=== PATIENT | male | born 1955 | race Caucasian/White ===

== ENCOUNTER 2017-04-08 11:21 | Emergency (ER) | payer OTHER ==
[~2017-04-08] VITALS: Ht 175.3 cm; Wt 105.0 kg
[2017-04-08 11:36] VITALS: TEMP 36.7; Ht 175.3 cm; Wt 105.0 kg
[2017-04-08 12:30] LABS: BASO % 0.3 %; BASO ABS # 0.03 K/uL (0-0.2); COMPLETE YES; EOS % 1.5 %; HEMATOCRIT 46.7 % (42-52); IG% 0.4 %; LYMPH % 20.3 %; LYMPH ABS # 2.26 K/uL (1.2-3.4); MEAN CELL VOLUME 83.7 fL (80-100); MEAN CORPUSCULAR HEMOGLOBIN 29.2 pg (25-34); MEAN CORPUSCULAR HGB CONC 34.9 g/dl (32-36); MEAN PLATELET VOLUME 9.5 fL (7.4-10.4); MONO % 8.6 %; NEUT % 68.9 %; PLATELET COUNT 320 K/uL (130-400); RED BLOOD COUNT 5.58 M/uL (4.7-6.1); WHITE BLOOD COUNT 11.14 K/uL (4.8-10.8)
[2017-04-08] MEDS ORDERED: SODIUM CHLORIDE 0.9% 1000ML 1,000 ML IV STA (12:41)
[2017-04-08 12:48] LABS: URINE APPEARANCE CLEAR (CLEAR); URINE BILIRUBIN NEG (NEG); URINE COLOR YELLOW; URINE EPITHELIAL CELL AUTO 0-5 /lpf (0-5); URINE NITRITE NEG (NEG); URINE PH 5.5 (4.5-7.5); URINE SPECIFIC GRAVITY 1.015 (1.000-1.030); UROBILINOGEN NEG (NEG); ZZUR CULT IF INDIC CLEAN CATCH NO
[2017-04-08 12:48] LABS: BUN/CREATININE RATIO 8.8 (10-20); CALCIUM 9.5 mg/dl (8.5-10.1); POTASSIUM 3.8 mmol/L (3.5-5.1)
[2017-04-08 12:49] LABS: MANUAL MICROSCOPIC REQUIRED? NO; REVIEW REQ? NO
[2017-04-08 12:59] LABS: THYROID STIMULATING HORMONE 2.07 uIu/ml (0.300-4.500)
[2017-04-08 13:14] LABS: ACETAMINOPHEN < 2 ug/ml (10-30)
[2017-04-08 13:29] LABS: BENZODIAZEPINE, URINE NEG (NEG); COCAINE,URINE NEG (NEG); PHENCYCLIDINE, URINE NEG (NEG)
[2017-04-08] MEDS ORDERED: SIMV20TA2 PO (13:40)
[2017-04-08] MEDS ORDERED: ABL/5 PO (13:40)
[2017-04-08] MEDS ORDERED: ARIP20TA4 PO (13:40)
[2017-04-08] MEDS ORDERED: ASPI-232 PO (13:40)
[2017-04-08] MEDS ORDERED: GLC/500 PO (13:40)
[2017-04-08] MEDS ORDERED: WARF-246 PO (13:40)
[2017-04-08] MEDS ORDERED: DILT240C74 PO (13:40)
[2017-04-08] MEDS ORDERED: RMRS/15 PO (13:40)
[2017-04-08] MEDS ORDERED: PANT40TA PO (13:40)
--- NOTE | 2017-04-08 13:46 | DIAGNOSTIC IMAGING REPORT ---
CHEST ONE VIEW PORTABLE CLINICAL HISTORY: Altered mental status. Weakness. COMPARISON STUDY: No previous studies for comparison. FINDINGS: Lung volumes are at the lower limits of normal. There is mild elevation of the right hemidiaphragm. No pneumothorax or pleural effusion is present. There is no evidence of pulmonary edema. There is mild enlargement of the cardiac silhouette. IMPRESSION: 1. No acute cardiopulmonary findings. 2. Mild cardiomegaly. Electronically signed by: Mainor Black M.D. 04/08/2017 1:44 PM Dictated Date/Time: 04/08/2017 1:43 PM
--- NOTE | 2017-04-08 13:56 | DIAGNOSTIC IMAGING REPORT ---
HEAD WITHOUT CONTRAST (CT) CLINICAL HISTORY: 61 years-old Male presenting with EVALUATE ALTERED MENTAL STATUS/WEAKNESS, suicidal thoughts. TECHNIQUE: Multidetector CT imaging of the head was performed without the use of intravenous contrast. COMPARISON: None. CT DOSE: 669.45 mGycm FINDINGS: Peripheral hypoattenuation in the medial left cerebellar hemisphere may represent encephalomalacia from prior infarct or possibly an arachnoid cyst. No mass effect or midline shift. No acute territorial infarct. No hydrocephalus. Mild asymmetric prominence of the superior sagittal sinus along the right paramedian parietal region. As this appearance remains focal at the sinus and does not extend along the dura, the presence of a subdural hematoma is felt to be unlikely. Paranasal sinuses and mastoid air cells clear. Calvarium intact. IMPRESSION: 1. No convincing evidence of acute intracranial pathology. 2. Possible encephalomalacia from prior infarct in the left cerebellar hemisphere versus arachnoid cyst. Electronically signed by: Brian Mora M.D. 04/08/2017 1:54 PM Dictated Date/Time: 04/08/2017 1:34 PM
--- NOTE | 2017-04-08 14:44 | EMERGENCY ROOM VISIT NOTE ---
History Report prepared by Rahul: Keara Mix Under the Supervision of: Dr. Talha Zavala D.O. First contact with patient: 12:34 Chief Complaint: MENTAL HEALTH EVALUATION Stated Complaint: SUICIDAL THOUGHTS History of Present Illness The patient is a 61 year old male who presents to the Emergency Room for concerns about stroke-like symptoms occurring today. The patient's nurse from [facility] came to check in on the patient and found him to have a right facial droop, speech slur, and confusion. The patient was also drooling. He states that he started drooling constantly a few weeks ago. The patient reports pain in the back of his head starting about a week ago which is similar to his chronic hypertension headache. He also complains of sore throat starting about a week ago which is new. The patient also reports fevers occurring at home. He has been ambulating as normal in his home. He reports a normal appetite and a normal fluid intake. As per Emergency Room psychiatric child support case officer, the patient has been making homicidal threats against some people concerning his 's . The patient was initially hospitalized for a psych evaluated for 30 days during which time his 's health worsened. He was hospitalized for 30 days again for a mental health evaluation. In these 60 days time period, the patient's . By the time he was discharged from the hospital, his had been cremated and he did not get to attend her . He currently reports feeling depressed. Source of History: patient, other Onset: today Position: other (global) Quality: other (stroke-like symptoms) Associated Symptoms: + fevers, + headache, + sorethroat Note: Associated symptoms; He currently reports feeling depressed. He also has homicidal ideation. Review of Systems See HPI for pertinent positives & negatives. A total of 10 systems reviewed and were otherwise negative. Past Medical & Surgical Medical Problems: (1) Anginal pain (2) Asthma (3) Chest pain (4) Diabetes Family History Patient reports no known family medical history. Social History Marital Status: Occupation Status: disabled Current/Historical Medications Scheduled Aripiprazole (Abilify), 5 MG PO HS Aripiprazole (Abilify), 20 MG PO HS Aspirin (Aspir-81), 1 TAB PO DAILY Diltiazem Hcl Extended Release (Diltiazem Hcl Er), 1 CAP PO DAILY Metformin Hcl (Glucophage), 500 MG PO BIDM Mirtazapine (Mirtazapine), 7.5 MG PO HS Pantoprazole Sodium (Protonix), 40 MG PO DAILY Simvastatin (Zocor), 20 MG PO QPM Warfarin Sodium (Warfarin Sodium), 1.5 TAB PO DAILY Allergies Coded Allergies: BEE STING (Unverified Allergy, Unknown, unknown, 04/08/17) Physical Exam Vital Signs Date Time Temp Pulse Resp B/P (MAP) Pulse Ox O2 Delivery O2 Flow Rate FiO2 04/08/17 14:51 84 20 160/106 94 Room Air 04/08/17 13:30 84 20 148/111 93 Room Air 04/08/17 11:36 36.7 98 20 152/108 93 Room Air Physical Exam VITAL SIGNS: were reviewed as above. GENERAL:Non-toxic in appearance. SKIN: Warm dry and pink. HEAD: Normocephalic and atraumatic. OROPHARYNX: Is clear and moist NECK: Supple without lymphadenopathy or meningismus. LUNGS: clear. HEART: Regular rate and rhythm. ABDOMEN: Soft and nontender. EXTREMITIES: Warm and well perfused. NEUROLOGICALLY: Awake alert and oriented without focal deficit. Cranial nerves 2 -12 are intact. There is no pronator drift. Cerebellar testing is within normal limits. There is no nystagmus. There is no facial droop. Speech is clear. Vision is grossly normal. MUSCULOSKELETAL: Good muscle tone. No evidence of trauma. Medical Decision & Procedures ER Provider Diagnostic Interpretation: X ray results and stated below per my interpretation and radiology interpretation. CHEST ONE VIEW PORTABLE CLINICAL HISTORY: Altered mental status. Weakness. COMPARISON STUDY: No previous studies for comparison. FINDINGS: Lung volumes are at the lower limits of normal. There is mild elevation of the right hemidiaphragm. No pneumothorax or pleural effusion is present. There is no evidence of pulmonary edema. There is mild enlargement of the cardiac silhouette. IMPRESSION: 1. No acute cardiopulmonary findings. 2. Mild cardiomegaly. Electronically signed by: Mainor Black M.D. 04/08/2017 1:44 PM Dictated Date/Time: 04/08/2017 1:[address] results as stated below per my review and radiologist interpretation: HEAD WITHOUT CONTRAST (CT) CLINICAL HISTORY: 61 years-old Male presenting with EVALUATE ALTERED MENTAL STATUS/WEAKNESS, suicidal thoughts. TECHNIQUE: Multidetector CT imaging of the head was performed without the use of intravenous contrast. COMPARISON: None. CT DOSE: 669.45 mGycm FINDINGS: Peripheral hypoattenuation in the medial left cerebellar hemisphere may represent encephalomalacia from prior infarct or possibly an arachnoid cyst. No mass effect or midline shift. No acute territorial infarct. No hydrocephalus. Mild asymmetric prominence of the superior sagittal sinus along the right paramedian parietal region. As this appearance remains focal at the sinus and does not extend along the dura, the presence of a subdural hematoma is felt to be unlikely. Paranasal sinuses and mastoid air cells clear. Calvarium intact. IMPRESSION: 1. No convincing evidence of acute intracranial pathology. 2. Possible encephalomalacia from prior infarct in the left cerebellar hemisphere versus arachnoid cyst. Electronically signed by: Brian Mora M.D. 04/08/2017 1:54 PM Dictated Date/Time: 04/08/2017 1:34 PM Laboratory Results 04/08/17 11:55 Red Blood Count 5.58, Mean Corpuscular Volume 83.7, Mean Corpuscular Hemoglobin 29.2, Mean Corpuscular Hemoglobin Concent 34.9, Mean Platelet Volume 9.5, Neutrophils (%) (Auto) 68.9, Lymphocytes (%) (Auto) 20.3, Monocytes (%) (Auto) 8.6, Eosinophils (%) (Auto) 1.5, Basophils (%) (Auto) 0.3, Neutrophils # (Auto) 7.68, Lymphocytes # (Auto) 2.26, Monocytes # (Auto) 0.96, Eosinophils # (Auto) 0.17, Basophils # (Auto) 0.03 04/08/17 11:55 Test 04/08/17 11:50 04/08/17 11:55 Urine Color YELLOW Urine Appearance CLEAR (CLEAR) Urine pH 5.5 (4.5-7.5) Urine Specific [place] 1.015 (1.000-1.030) Urine Protein 2+ (NEG) Urine Glucose (UA) NEG (NEG) Urine Ketones NEG (NEG) Urine Occult Blood 1+ (NEG) Urine Nitrite NEG (NEG) Urine Bilirubin NEG (NEG) Urine Urobilinogen NEG (NEG) Urine Leukocyte Esterase NEG (NEG) Urine WBC (Auto) 0 /hpf (0-5) Urine RBC (Auto) 0-4 /hpf (0-4) Urine Hyaline Casts (Auto) 1-5 /lpf (0-5) Urine Epithelial Cells (Auto) 0-5 /lpf (0-5) Urine Bacteria (Auto) NEG (NEG) Urine Opiates Screen NEG (NEG) Urine Methadone, Qualitative NEG (NEG) Urine Barbiturates NEG (NEG) Urine Phencyclidine (PCP) Level NEG (NEG) Ur Amphetamine/Methamphetamine NEG (NEG) MDMA (Ecstasy) Screen NEG (NEG) Urine Benzodiazepines Screen NEG (NEG) Urine Cocaine Metabolite NEG (NEG) Urine Marijuana (THC) NEG (NEG) White Blood Count 11.14 K/uL (4.8-10.8) Red Blood Count 5.58 M/uL (4.7-6.1) Hemoglobin 16.3 g/dL (14.0-18.0) Hematocrit 46.7 % (42-52) Mean Corpuscular Volume 83.7 fL (80-100) Mean Corpuscular Hemoglobin 29.2 pg (25-34) Mean Corpuscular Hemoglobin Concent 34.9 g/dl (32-36) Platelet Count 320 K/uL (130-400) Mean Platelet Volume 9.5 fL (7.4-10.4) Neutrophils (%) (Auto) 68.9 % Lymphocytes (%) (Auto) 20.3 % Monocytes (%) (Auto) 8.6 % Eosinophils (%) (Auto) 1.5 % Basophils (%) (Auto) 0.3 % Neutrophils # (Auto) 7.68 K/uL (1.4-6.5) Lymphocytes # (Auto) 2.26 K/uL (1.2-3.4) Monocytes # (Auto) 0.96 K/uL (0.11-0.59) Eosinophils # (Auto) 0.17 K/uL (0-0.5) Basophils # (Auto) 0.03 K/uL (0-0.2) RDW Standard Deviation 43.4 fL (36.4-46.3) RDW Coefficient of Variation 14.1 % (11.5-14.5) Immature Granulocyte % (Auto) 0.4 % Immature Granulocyte # (Auto) 0.04 K/uL (0.00-0.02) Anion Gap 9.0 mmol/L (3-11) Est Creatinine Clear Calc Drug Dose 95.0 ml/min Estimated GFR () 95.1 Estimated GFR (Non- 82.0 BUN/Creatinine Ratio 8.8 (10-20) Calcium Level 9.5 mg/dl (8.5-10.1) Total Bilirubin 0.6 mg/dl (0.2-1) Aspartate Amino Transf (AST/SGOT) 56 U/L (15-37) Alanine Aminotransferase (ALT/SGPT) 64 U/L (12-78) Alkaline Phosphatase 77 U/L (45-117) Total Protein 7.7 gm/dl (6.4-8.2) Albumin 3.9 gm/dl (3.4-5.0) Globulin 3.8 gm/dl (2.5-4.0) Albumin/Globulin Ratio 1.0 (0.9-2) Thyroid Stimulating Hormone (TSH) 2.070 uIu/ml (0.300-4.500) Salicylates Level < 1.7 mg/dl (2.8-20) Acetaminophen Level < 2 ug/ml (10-30) Ethyl Alcohol mg/dL < 3.0 mg/dl (0-3) Laboratory results as stated above per my review. Medications Administered Medications (Trade) Dose Ordered Sig/Prashant Route Start Time Stop Time Status Last Admin Dose Admin Sodium Chloride 1,000 ml @ 999 mls/hr Q1H1M STAT IV 04/08/17 12:41 04/08/17 13:41 DC 04/08/17 12:59 999 MLS/HR ECG Indication: other (Stroke-like symptoms) Rate (beats per minute): 80 Rhythm: normal sinus Findings: no acute ischemic change, no ectopy ED Course 1234: Previous medical records were reviewed. The patient was evaluated in room A05. A complete history and physical examination was performed. 1241: Sodium Chloride 1000 ml @ 999 mls/hr IV 1445: On reevaluation, the patient is resting comfortably. I discussed the results and findings with the patient. He verbalized agreement of the treatment plan. He was discharged home. Medical Decision Medication Reconciliation: I attest that I have personally reviewed the patient' s current medication list. Patient was found to have a slightly elevated blood pressure due to circumstances. I do not believe that the patient requires hypertension monitoring. Differential includes acute coronary syndrome, myocardial infarction, CVA, TIA, anemia, infection, pneumonia, UTI, pyelonephritis, poor nutrition, dehydration, electrolyte disturbance,hypoglycemia, toxic ingestions, self-mutilation, suicidal ideation, suicide attempt, depression. This is a 61-year-old male who presents to the ED with a chief complaint of a headache that has been mostly chronic and intermittent. He also reports depression. He has a history of schizophrenia. The patient reports a sore throat for about a week. He was evaluated by [facility] today and they noticed some drooling from the right side of his face. They thought he should come and get checked. The patient states that the swelling has been going on for at least a couple of weeks. He denies any other symptoms. A neurological exam was unremarkable. The patient does report a history of depression. He has did not express any suicidal ideation. He has no difficulty getting around at home. His exam was otherwise unremarkable. CT scan of the brain did not show any acute process. His blood work including a CBC, complete metabolic panel, urine and tox screen are unremarkable. EKG shows a normal sinus rhythm. The patient was evaluated by her mental health services here. There was no criteria for admission. The patient is currently not homicidal or suicidal. He is cooperative and feels couple going home. Impression Primary Impression: Drooling Additional Impressions: Depressed Schizophrenia Scribe Attestation The scribe's documentation has been prepared under my direction and personally reviewed by me in its entirety. I confirm that the note above accurately reflects all work, treatment, procedures, and medical decision making performed by me. Departure Information Dispostion Home / Self-Care Referrals Denise Michael M.D. (PCP) Forms HOME CARE DOCUMENTATION FORM, IMPORTANT VISIT INFORMATION Patient Instructions My [facility] Additional Instructions Follow-up with your doctor for further care and evaluation in 1-2 days. Return to the emergency department for worsening or new symptoms or any concerns. You have been examined and treated today on an emergency basis only. This is not a substitute for, or an effort to provide, complete comprehensive medical care. It is impossible to recognize and treat all injuries or illnesses in a single emergency department visit. It is therefore important that you follow up closely with your doctor. Call as soon as possible for an appointment. Problem Qualifiers
[2017-04-08 16:54] VITALS: BP 160/99; PULSE 84; O2SAT 99
== END 2017-04-08 17:19 | disposition home or self-care (01) ==
LOC: EDBD 11:21 → C.EDA 11:21 → EDSEX 11:21 → C.EDA 17:19
DX: R51 Headache (principal); F20.9 Schizophrenia, unspecified; R29.810 Facial weakness; I10 Essential (primary) hypertension; J02.9 Acute pharyngitis, unspecified; F32.9 Major depressive disorder, single episode, unspecified; R45.850 Homicidal ideations; J45.909 Unspecified asthma, uncomplicated; E11.9 Type 2 diabetes mellitus without complications; Z79.82 Long term (current) use of aspirin; Z79.899 Other long term (current) drug therapy; Z79.01 Long term (current) use of anticoagulants

== ENCOUNTER 2017-06-17 17:15 | Inpatient (IN) | payer OTHER ==
[~2017-06-17] VITALS: Ht 172.7 cm; Wt 99.5 kg
[~2017-06-17 17:15] MED LIST: ABL/5 PO; ARIP20TA4 PO; ASPI-232 PO; DILT240C74 PO; GLC/500 PO; PANT40TA PO; RMRS/15 PO; SIMV20TA2 PO; WARF-246 PO
--- NOTE | 2017-06-17 17:56 | EMERGENCY ROOM VISIT NOTE ---
History Report prepared by Rahul: Kingsley Oneill Under the Supervision of: Dr. Junito Diaz D.O. First contact with patient: 17:37 Chief Complaint: MENTAL HEALTH EVALUATION Stated Complaint: VOLUNTARY EVAL History of Present Illness The patient is a 62 year old male with a history of schizophrenia and depression who presents to the Emergency Room with worsening mental health that started around a month ago. He says that he has home visitors (nurses) and one came earlier today, and called [facility]. The police got involved and he was taken here. Per the psych lining caser, the patient was researching how to make a bomb, but is having memory problems. He was noted not to be oriented to day or time according to [facility], and was confused. The patient says that he ran out of his Abilify a month ago, and has not taken it for over a month. He states that his mind has been getting mixed up, and he hears voices, but he has been hearing voices all his life. The patient states that he was last hospitalized in September in [place], and went straight home after that. He says that he was brought to the hospital once after that, but did not have to be admitted. The patient states that he gets depressed, especially when he thinks about his dying. The patient denies any suicidal ideations however. The patient says that people make him upset, but for no particular reason. He notes that he has had chest pain and leg pain for a while. The patient denies any fevers, headaches, or shortness of breath. He says that he has been taking all his medications appropriately other than the Abilify. He notes that he has a clot in his chest, but has no surgical history. The patient does not drink alcohol or use drugs. The patient adds that he last saw his psychiatrist a month ago. He is on Coumadin. The patient notes that he lives by himself. Source of History: patient, other (psych lining caser, [facility]) Onset: Around a month ago Quality: other (researched how to make a bomb) Timing: worsening Associated Symptoms: + chest pain, No fevers, No headache, No SOB Note: Associated symptoms: Notes leg pain. Denies suicidal ideation. Review of Systems See HPI for pertinent positives & negatives. A total of 10 systems reviewed and were otherwise negative. Past Medical & Surgical Medical Problems: (1) Anginal pain (2) Asthma (3) Chest pain (4) Diabetes Family History Patient reports no known family medical history. Social History Smoking Status: Never Smoker Marital Status: Occupation Status: disabled Current/Historical Medications Scheduled Aripiprazole (Abilify), 5 MG PO HS Aripiprazole (Abilify), 20 MG PO HS Aspirin (Aspir-81), 1 TAB PO DAILY Diltiazem Hcl Extended Release (Diltiazem Hcl Er), 1 CAP PO DAILY Metformin Hcl (Glucophage), 500 MG PO BIDM Mirtazapine (Mirtazapine), 7.5 MG PO HS Pantoprazole Sodium (Protonix), 40 MG PO DAILY Simvastatin (Zocor), 20 MG PO QPM Warfarin Sodium (Warfarin Sodium), 1.5 TAB PO DAILY Allergies Coded Allergies: BEE STING (Unverified Allergy, Unknown, unknown, 04/08/17) Physical Exam Vital Signs Date Time Temp Pulse Resp B/P (MAP) Pulse Ox O2 Delivery O2 Flow Rate FiO2 06/17/17 19:13 83 18 114/83 96 Room Air 06/17/17 17:18 36.6 91 16 138/91 94 Room Air Physical Exam GENERAL: Patient is awake, alert, very anxious appearing and guarded. EYES: The conjunctivae are clear. The pupils are round and reactive. EARS, NOSE, MOUTH AND THROAT: The nose is without any evidence of any deformity. Mucous membranes are moist tongue is midline NECK: The neck is nontender and supple. RESPIRATORY: Normal respiratory effort is noted there is no evidence of wheezing rhonchi or rales CARDIOVASCULAR: Heart sounds were tachycardic but regular. No definite murmur noted to auscultation. GASTROINTESTINAL: The abdomen is soft. Bowel sounds are present in all quadrants. Abdomen is nontender MUSCULOSKELETAL/EXTREMITIES: There is no evidence of gross deformity full range of motion is noted in the hips and shoulders SKIN: There is no obvious evidence of any rash. There are no petechiae, pallor or cyanosis noted. NEUROLOGIC: Patient is awake alert and oriented x3 strength is symmetric patellar reflexes are 2+ bilaterally PSYCH: Very anxious and guarded appearing. Makes poor eye contact. Currently denying any suicidal ideations but has loose homicidal ideation without specific target. Medical Decision & Procedures ER Provider Diagnostic Interpretation: Radiology results as stated below per my review and radiologist interpretation: CHEST ONE VIEW PORTABLE CLINICAL HISTORY: Overdose mental status change COMPARISON STUDY: 07/09/2017 FINDINGS: Mild stable cardiomegaly. Diaphragms smooth. Lungs are clear. IMPRESSION: Mild stable cardia megaly. Otherwise negative study. The above report was generated using voice recognition software. It may contain grammatical, syntax or spelling errors. Electronically signed by: Rupert Disla M.D. 06/17/2017 6:08 PM Dictated Date/Time: 06/17/2017 6:07 PM HEAD WITHOUT CONTRAST (CT) CLINICAL HISTORY: 62 years-old Male presenting with OVERDOSE. TECHNIQUE: Multidetector CT imaging of the head was performed without the use of intravenous contrast. IV contrast: None. A dose lowering technique was used consistent with the principles of ALARA (as low as reasonably achievable). COMPARISON: 04/08/2017. CT DOSE (mGy.cm): The estimated cumulative dose is 623.48 mGy.cm. FINDINGS: Hairspring Cutter topogram: Unremarkable. Ventricles and sulci normal in size. Stable appearance of the chronic left cerebellar infarct versus posterior fossa arachnoid cyst. No mass effect or midline shift. No hemorrhage or acute territorial infarct. No extra-axial fluid collection. Paranasal sinuses and mastoid air cells clear. Calvarium intact. IMPRESSION: 1. No acute intracranial pathology. Electronically signed by: Brian Mora M.D. 06/17/2017 6:31 PM Dictated Date/Time: 06/17/2017 6:28 PM Laboratory Results 06/17/17 18:17 Red Blood Count 5.18, Mean Corpuscular Volume 85.1, Mean Corpuscular Hemoglobin 30.1, Mean Corpuscular Hemoglobin Concent 35.4, Mean Platelet Volume 9.8, Neutrophils (%) (Auto) 61.4, Lymphocytes (%) (Auto) 29.2, Monocytes (%) (Auto) 7.2, Eosinophils (%) (Auto) 1.7, Basophils (%) (Auto) 0.3, Neutrophils # (Auto) 5.39, Lymphocytes # (Auto) 2.57, Monocytes # (Auto) 0.63, Eosinophils # (Auto) 0.15, Basophils # (Auto) 0.03 06/17/17 18:17 Test 06/17/17 17:32 06/17/17 18:16 06/17/17 18:17 Urine Color YELLOW Urine Appearance CLEAR (CLEAR) Urine pH 7.0 (4.5-7.5) Urine Specific [place] 1.019 (1.000-1.030) Urine Protein 1+ (NEG) Urine Glucose (UA) NEG (NEG) Urine Ketones NEG (NEG) Urine Occult Blood TRACE (NEG) Urine Nitrite NEG (NEG) Urine Bilirubin NEG (NEG) Urine Urobilinogen NEG (NEG) Urine Leukocyte Esterase NEG (NEG) Urine WBC (Auto) 1-5 /hpf (0-5) Urine RBC (Auto) 5-10 /hpf (0-4) Urine Hyaline Casts (Auto) 0 /lpf (0-5) Urine Epithelial Cells (Auto) 0-5 /lpf (0-5) Urine Bacteria (Auto) NEG (NEG) Urine Opiates Screen NEG (NEG) Urine Methadone, Qualitative NEG (NEG) Urine Barbiturates NEG (NEG) Urine Phencyclidine (PCP) Level NEG (NEG) Ur Amphetamine/Methamphetamine NEG (NEG) MDMA (Ecstasy) Screen NEG (NEG) Urine Benzodiazepines Screen NEG (NEG) Urine Cocaine Metabolite NEG (NEG) Urine Marijuana (THC) NEG (NEG) Bedside Glucose 144 mg/dl (70-99) White Blood Count 8.79 K/uL (4.8-10.8) Red Blood Count 5.18 M/uL (4.7-6.1) Hemoglobin 15.6 g/dL (14.0-18.0) Hematocrit 44.1 % (42-52) Mean Corpuscular Volume 85.1 fL (80-100) Mean Corpuscular Hemoglobin 30.1 pg (25-34) Mean Corpuscular Hemoglobin Concent 35.4 g/dl (32-36) Platelet Count 265 K/uL (130-400) Mean Platelet Volume 9.8 fL (7.4-10.4) Neutrophils (%) (Auto) 61.4 % Lymphocytes (%) (Auto) 29.2 % Monocytes (%) (Auto) 7.2 % Eosinophils (%) (Auto) 1.7 % Basophils (%) (Auto) 0.3 % Neutrophils # (Auto) 5.39 K/uL (1.4-6.5) Lymphocytes # (Auto) 2.57 K/uL (1.2-3.4) Monocytes # (Auto) 0.63 K/uL (0.11-0.59) Eosinophils # (Auto) 0.15 K/uL (0-0.5) Basophils # (Auto) 0.03 K/uL (0-0.2) RDW Standard Deviation 45.7 fL (36.4-46.3) RDW Coefficient of Variation 14.5 % (11.5-14.5) Immature Granulocyte % (Auto) 0.2 % Immature Granulocyte # (Auto) 0.02 K/uL (0.00-0.02) Prothrombin Time 32.3 SECONDS (9.0-12.0) Prothromb Time International Ratio 2.9 (0.9-1.1) Activated Partial Thromboplast Time 41.0 SECONDS (21.0-31.0) Partial Thromboplastin Ratio 1.6 Anion Gap 9.0 mmol/L (3-11) Est Creatinine Clear Calc Drug Dose 89.8 ml/min Estimated GFR () 94.4 Estimated GFR (Non- 81.4 BUN/Creatinine Ratio 13.2 (10-20) Calcium Level 8.8 mg/dl (8.5-10.1) Total Bilirubin 0.6 mg/dl (0.2-1) Direct Bilirubin 0.2 mg/dl (0-0.2) Aspartate Amino Transf (AST/SGOT) 27 U/L (15-37) Alanine Aminotransferase (ALT/SGPT) 44 U/L (12-78) Alkaline Phosphatase 52 U/L (45-117) Total Creatine Kinase 93 U/L (39-308) Creatine Kinase MB 1.6 ng/ml (0.5-3.6) Creatine Kinase MB Ratio 1.7 (0-3.0) Troponin I < 0.015 ng/ml (0-0.045) Total Protein 7.0 gm/dl (6.4-8.2) Albumin 3.8 gm/dl (3.4-5.0) Lipase 137 U/L (73-393) Free Thyroxine 1.00 ng/dl (0.80-1.60) Salicylates Level < 1.7 mg/dl (2.8-20) Acetaminophen Level < 2 ug/ml (10-30) Ethyl Alcohol mg/dL < 3.0 mg/dl (0-3) Laboratory results per my review. ECG Indication: chest pain Rate (beats per minute): 85 Rhythm: normal sinus Findings: no ectopy, other (no acute ST segment abnormalities, poor R-wave progression) Comparison ECG Date: poor R-wave progression is new compared to April 08 2017 ED Course 174: The patient was evaluated in room A6. A complete history and physical examination were performed. Medical Decision Differential diagnosis: Etiologies such as mood disorder, infection, hypoglycemia, electrolyte abnormalities, cardiac sources, intracerebral event, toxicologic, neurologic, as well as others were entertained. the current condition. Nursing notes reviewed. Additional history was obtained from the [employer] petition. The patient is a 62-year-old male who presented to the emergency department for a mental health evaluation. The patient admits that he has been noncompliant with some of his medications. He states that he has been taking some of his medical medications at this time. The patient presented to the emergency department because a 302 petition was filled out for the patient to have an emergent evaluation. The patient at this time is denying any suicidal ideation but he does have significant homicidal ideation as well as psychotic features of his schizophrenia. The patient was medically cleared in the emergency department. He was found have an EKG that showed Q waves through the anterior as well as the lateral leads. Some of these EKG changes could be new and may require further evaluation with echocardiogram and cardiology but this time they do not appear to be acute changes. The patient does not have abnormal vital signs. He has no chest pain at this time. His cardiac biomarkers are negative. The patient was medically cleared in the emergency Department was evaluated by the emergency Department mental health continuous pillowcase cutter. The patient was reevaluated multiple times. Medication Reconcilliation Current Medication List: was personally reviewed by me Blood Pressure Screening Patient's blood pressure: Normal blood pressure Impression Primary Impression: Paranoid schizophrenia Additional Impressions: Homicidal ideation Abnormal EKG Auditory hallucinations Scribe Attestation The scribe's documentation has been prepared under my direction and personally reviewed by me in its entirety. I confirm that the note above accurately reflects all work, treatment, procedures, and medical decision making performed by me. Departure Information Referrals No Doctor, Assigned (PCP) Patient Instructions My [facility] Problem Qualifiers
--- NOTE | 2017-06-17 18:09 | DIAGNOSTIC IMAGING REPORT ---
CHEST ONE VIEW PORTABLE CLINICAL HISTORY: Overdose mental status change COMPARISON STUDY: 07/09/2017 FINDINGS: Mild stable cardiomegaly. Diaphragms smooth. Lungs are clear. IMPRESSION: Mild stable cardia megaly. Otherwise negative study. The above report was generated using voice recognition software. It may contain grammatical, syntax or spelling errors. Electronically signed by: Rupert Disla M.D. 06/17/2017 6:08 PM Dictated Date/Time: 06/17/2017 6:07 PM
[2017-06-17 18:28] LABS: URINE APPEARANCE CLEAR (CLEAR); URINE BILIRUBIN NEG (NEG); URINE COLOR YELLOW; URINE EPITHELIAL CELL AUTO 0-5 /lpf (0-5); URINE NITRITE NEG (NEG); URINE SPECIFIC GRAVITY 1.019 (1.000-1.030); UROBILINOGEN NEG (NEG)
--- NOTE | 2017-06-17 18:33 | DIAGNOSTIC IMAGING REPORT ---
HEAD WITHOUT CONTRAST (CT) CLINICAL HISTORY: 62 years-old Male presenting with OVERDOSE. TECHNIQUE: Multidetector CT imaging of the head was performed without the use of intravenous contrast. IV contrast: None. A dose lowering technique was used consistent with the principles of ALARA (as low as reasonably achievable). COMPARISON: 04/08/2017. CT DOSE (mGy.cm): The estimated cumulative dose is 623.48 mGy.cm. FINDINGS: Certified Massage Therapist topogram: Unremarkable. Ventricles and sulci normal in size. Stable appearance of the chronic left cerebellar infarct versus posterior fossa arachnoid cyst. No mass effect or midline shift. No hemorrhage or acute territorial infarct. No extra-axial fluid collection. Paranasal sinuses and mastoid air cells clear. Calvarium intact. IMPRESSION: 1. No acute intracranial pathology. Electronically signed by: Brian Mora M.D. 06/17/2017 6:31 PM Dictated Date/Time: 06/17/2017 6:28 PM
[2017-06-17 18:36] LABS: MANUAL MICROSCOPIC REQUIRED? NO; REVIEW REQ? NO
[2017-06-17 18:40] LABS: BENZODIAZEPINE, URINE NEG (NEG); COCAINE,URINE NEG (NEG); PHENCYCLIDINE, URINE NEG (NEG)
[2017-06-17 18:47] LABS: BASO % 0.3 %; BASO ABS # 0.03 K/uL (0-0.2); COMPLETE YES; EOS % 1.7 %; HEMATOCRIT 44.1 % (42-52); IG% 0.2 %; LYMPH % 29.2 %; LYMPH ABS # 2.57 K/uL (1.2-3.4); MEAN CELL VOLUME 85.1 fL (80-100); MEAN CORPUSCULAR HEMOGLOBIN 30.1 pg (25-34); MEAN CORPUSCULAR HGB CONC 35.4 g/dl (32-36); MEAN PLATELET VOLUME 9.8 fL (7.4-10.4); MONO % 7.2 %; NEUT % 61.4 %; PLATELET COUNT 265 K/uL (130-400); RED BLOOD COUNT 5.18 M/uL (4.7-6.1); WHITE BLOOD COUNT 8.79 K/uL (4.8-10.8)
[2017-06-17 18:55] LABS: INR 2.9 (0.9-1.1); PARTIAL THROMBOPLASTIN RATIO 1.6; PROTHROMBIN TIME (PATIENT) 32.3 SECONDS (9.0-12.0)
[2017-06-17 19:04] LABS: BLOOD UREA NITROGEN 13 mg/dl (7-18); CALCIUM 8.8 mg/dl (8.5-10.1); CARBON DIOXIDE 26 mmol/L (21-32); CHLORIDE 103 mmol/L (98-107); GLUCOSE 146 mg/dl (70-99); POTASSIUM 3.8 mmol/L (3.5-5.1); SODIUM 138 mmol/L (136-145)
[2017-06-17 19:05] LABS: ALT/SGPT 44 U/L (12-78); AST/SGOT 27 U/L (15-37); BUN/CREATININE RATIO 13.2 (10-20)
[2017-06-17 19:14] LABS: ALKALINE PHOSPHATASE 52 U/L (45-117); CKMB/CK RATIO 1.7 (0-3.0)
[2017-06-17 19:15] LABS: ACETAMINOPHEN < 2 ug/ml (10-30)
[2017-06-17] MEDS ORDERED: MIRT15TA PO (20:57)
--- NOTE | 2017-06-17 21:39 | EMERGENCY ROOM VISIT NOTE ---
ED Visit Note This patient was signed out to me at shift change by Dr. Diaz. At that point, the patient had been medically cleared and was awaiting psychiatric placement. Apparently this patient does have paranoid schizophrenia and has not been taking his Abilify as directed. he's been hearing voices and at thoughts of hurting others. The patient was evaluated by [facility] S. in the emergency department. He is going to come in voluntarily. [facility] is going to admit him the asked me to give him Haldol 5 mg by mouth and Ativan 1 mg by mouth this was given and he will be admitted for further inpatient treatment and evaluation.
[2017-06-17] MEDS ORDERED: ACETAMINOPHEN 325 MG TAB PO PRN (21:45)
[2017-06-17] MEDS ORDERED: ALUMINUM/MAGNESIUM SUSP 30 ML UDC PO PRN (21:45)
[2017-06-17] MEDS ORDERED: MAGNESIUM HYDROXIDE SUSP 30 ML UDC PO PRN (21:45)
[2017-06-17] MEDS ORDERED: BISMUTH SUBSALICYLATE PER ML OMNICELL CHARGE PO PRN (21:45)
[2017-06-17] MEDS ORDERED: SODIUM CHLORIDE 0.65% NA SOLN 45 ML (OCEAN) PRN (21:45)
[2017-06-17] MEDS ORDERED: hydrOXYzine HCL 25 MG TAB PO PRN (21:45)
[2017-06-17] MEDS ORDERED: HALOPERIDOL 5 MG TAB PO STA (21:50)
[2017-06-17] MEDS ORDERED: LORAZEPAM 1 MG TAB SL STA (21:50)
[2017-06-17 22:36] VITALS: BP 114/83; PULSE 68; TEMP 36.6; BMI 33.4
[2017-06-17 23:08] VITALS: O2SAT 94
[2017-06-18 07:02] VITALS: BP_SYST 125; BP_SYST 144; BP_DIAS 89; BP_DIAS 90; PULSE 83; PULSE 89; TEMP 36.3
[2017-06-18 07:04] VITALS: Ht 172.7 cm; Wt 99.5 kg
[2017-06-18] MEDS: DILTIAZEM HCL 240 MG CAPCR PO SCH (10:14)
[2017-06-18] MEDS: ASPIRIN 81 MG ECTAB PO SCH (10:14)
[2017-06-18] MEDS: METFORMIN HCL 500 MG TAB PO SCH ×2 (10:14→17:48)
[2017-06-18] MEDS: PANTOprazole SOD 40 MG TAB PO SCH (10:14)
[2017-06-18 11:24] LABS: INR 2.5 (0.9-1.1); PROTHROMBIN TIME (PATIENT) 28.1 SECONDS (9.0-12.0)
[2017-06-18] MEDS: WARFARIN SOD 7.5 MG TAB PO SCH (16:47)
--- NOTE | 2017-06-18 18:40 | Psychiatric History & Physical ---
History Date of Service Jun 18, 2017. Identifying Data Gómez May is a 62-year-old male who currently lives alone in [place]. Gómez May was admitted on a 201 voluntary. Patient is admitted from home The patient was brought to the ED by the police. Information provided by the patient is considered to be reliable but limited by his mental health conditions Chief Complaint "been off my abilify for over a month and the voices are worse". History of Present Illness pt is a 62 year old male with h/o schizophrenia brought to [facility] ER 06/17 on petition due to concerns of HI with Home health nursing indicating that he was researching how to build a bomb. Pt has been off his abilify for about 6 weeks or so due ot lack of supply. He states that he was taking 1 pill of abilify at 30mg hs prior to that (med rec had abilify at 25mg ( 20+5mg) hs though). He indicated that his AH have wosened as he has been off the abilfiy and that he has a tendency to have command AH to do bad things to [facility]. A ID that mother was residing at prior to her in May 2015.Apparently he was told to leave the ID with unable to visit her before her . He ignores the command AH and described them as ego dystonic but has found this more distress during the past month or so. His from "natrual causes/smoking" in October 2016 and he has been struggling with grief since then. He denied h/o suicidal ideation or any past suicidal behaviors or SIB. He denied h/o aggressive behaviors to others. He endorsed being admitted for 35 days in [facility] in Sep 2016 and was placed on abilify at that time and possibly was when was started on the remeron. HE indicated that the hospital wanted to have him placed in NH but was unable to obtain one and d/c to his home with home health nursing. he indicated that Dr. Wilson is a newer psychiatrist for him. He only obtained his fasting labwork on 06/17 at [facility] and his delay in his labwork might have been part of reason ran out of abilify. also he indicated that [place] would not pay for his medication. . Pt unable to give more details about past psych history. Pt struggled to give more clarity to his current psych symptoms, no known h/o manic symptoms. pt has impaired organization of his thoughts and limited concentration and presentation consistent with low IQ as well Past Psychiatric History Current OP Treatment: psychiatrist (Dr. Katie Rodriguez ) Prior OP Treatment: psychiatrist Prior Psych Hospitalizations: other ([facility] Sep 2016 35 day stay, prior admissions including [facility], pt unable to give more detials) Access to a Gun: No Suicide Attempts: No Past Medication Trials pt unable to recall, denied recognizing any other psychotropics names manual writer inquired about, pt indicated was on a liquid med for his schizophrenia in past that they told him to stop, various meds that at times people told him to stop, beyond that pt unable to indicate. denied any h/o LTI med doses Past Medical/Surgical History History of Concussion/Seizure: No (1) Asthma (2) Diabetes arthritis, h/o [place] x 3 (last occurred in 2009 or 2010), has nitrocycline takes rarely for chest pain, over a month ago for last time used, HTN, possible dyslipidemia, obesity Allergies Allergies: Coded Allergies: BEE STING (Unverified Allergy, Unknown, unknown, 04/08/17) Home Medications Scheduled Aripiprazole (Abilify), 5 MG PO HS Aripiprazole (Abilify), 20 MG PO HS Aspirin (Aspir-81), 1 TAB PO DAILY Diltiazem Hcl Extended Release (Diltiazem Hcl Er), 1 CAP PO DAILY Metformin Hcl (Glucophage), 500 MG PO BIDM Mirtazapine (Remeron), 7.5 MG PO HS Pantoprazole Sodium (Protonix), 40 MG PO DAILY Simvastatin (Zocor), 20 MG PO QPM Warfarin Sodium (Warfarin Sodium), 1.5 TAB PO DAILY Family History Patient reports no known family medical history. History of Suicide: No (suicide attempt only by paternal aunt with bipolar) History of Substance Abuse: No Psychiatric History: Yes (brother with schizophrenia, paternal Aunt with bipolar, another relative had schizoprhenia) Father had DM and [place] Alcohol Use Alcohol Use In Past 12 Months: No AUDIT Total Score: 1 no alcohol usage at all for much more then past year (denied any use period) Smoking Use Smoking Status: Never Smoker Substance History denied any h/o substance usage including in past year Personal History Lives in: [place] Childhood: [place] Education: graduated from high school (special ed. pt indicated had very low IQ and does not read ) Relationship History: Legal History: none Psychological Trauma History: Significant Loss (mother May 2015, Oct 2016, father ) Review of Systems Constitutional: denies no symptoms reported, denies see HPI, denies chills, denies diaphoresis, denies fever, denies malaise, denies weakness, denies other ENT: denies: no symptoms reported, see HPI, ear pain, ear discharge, loss of hearing, tinnitus, nasal pain, nasal congestion, rhinorrhea, epistaxis, sore throat, stidor, throat swelling, mouth pain, mouth swelling, dental pain, gum swelling, other Cardiovascular: reports: chest pain (at times but not recently ) Respiratory: reports: other (asthma but not bothering him recently) Gastrointestinal: denies no symptoms reported, denies see HPI, denies abdominal pain, denies constipation, denies diarrhea, denies nausea, denies vomiting, denies other Genitourinary - Male: reports: other (kohli when urinates, trace blood in urine on ER U/A) Musculoskeletal: joint pain (b/l knees has arthritis ) Integumentary: denies no symptoms reported, denies see HPI, denies change in color, denies change in hair/nails, denies dryness, denies lesions, denies lumps , denies rash, denies other Neurologic: denies: no symptoms, see HPI, headache, numbness, paresthesias, pre -existing deficit, seizure, tingling, tremors, general weakness, tics, focal weakness, vertigo, lethargy, memory loss, dizziness, other Endocrine: denies: no symptoms, as stated in HPI, cold intolerance, heat intolerance, hair changes, goiter, polydipsia, polyuria, skin changes, other Hematologic / Lymphatic: other (on coumadin therapeutic INR ) Examination Physical Examination A physical exam was performed in the ER prior to admission to the unit by Dr. Diaz. I accept that physical as correct/medical clearance for the inpatient physical exam. Vital Signs Vital Signs Past 12 Hours Date Time Temp Pulse Resp B/P (MAP) Pulse Ox O2 Delivery O2 Flow Rate FiO2 06/18/17 07:02 36.3 83 18 125/90 89 144/89 Laboratory Results Last 24 Hours Test 06/17/17 18:16 06/17/17 18:17 06/18/17 10:07 06/18/17 10:48 Bedside Glucose 144 mg/dl 113 mg/dl White Blood Count 8.79 K/uL Red Blood Count 5.18 M/uL Hemoglobin 15.6 g/dL Hematocrit 44.1 % Mean Corpuscular Volume 85.1 fL Mean Corpuscular Hemoglobin 30.1 pg Mean Corpuscular Hemoglobin Concent 35.4 g/dl Platelet Count 265 K/uL Mean Platelet Volume 9.8 fL Neutrophils (%) (Auto) 61.4 % Lymphocytes (%) (Auto) 29.2 % Monocytes (%) (Auto) 7.2 % Eosinophils (%) (Auto) 1.7 % Basophils (%) (Auto) 0.3 % Neutrophils # (Auto) 5.39 K/uL Lymphocytes # (Auto) 2.57 K/uL Monocytes # (Auto) 0.63 K/uL Eosinophils # (Auto) 0.15 K/uL Basophils # (Auto) 0.03 K/uL RDW Standard Deviation 45.7 fL RDW Coefficient of Variation 14.5 % Immature Granulocyte % (Auto) 0.2 % Immature Granulocyte # (Auto) 0.02 K/uL Prothrombin Time 32.3 SECONDS 28.1 SECONDS Prothromb Time International Ratio 2.9 2.5 Activated Partial Thromboplast Time 41.0 SECONDS Partial Thromboplastin Ratio 1.6 Sodium Level 138 mmol/L Potassium Level 3.8 mmol/L Chloride Level 103 mmol/L Carbon Dioxide Level 26 mmol/L Anion Gap 9.0 mmol/L Blood Urea Nitrogen 13 mg/dl Creatinine 1.00 mg/dl Est Creatinine Clear Calc Drug Dose 89.8 ml/min Estimated GFR () 94.4 Estimated GFR (Non- 81.4 BUN/Creatinine Ratio 13.2 Random Glucose 146 mg/dl Calcium Level 8.8 mg/dl Total Bilirubin 0.6 mg/dl Direct Bilirubin 0.2 mg/dl Aspartate Amino Transf (AST/SGOT) 27 U/L Alanine Aminotransferase (ALT/SGPT) 44 U/L Alkaline Phosphatase 52 U/L Total Creatine Kinase 93 U/L Creatine Kinase MB 1.6 ng/ml Creatine Kinase MB Ratio 1.7 Troponin I < 0.015 ng/ml Total Protein 7.0 gm/dl Albumin 3.8 gm/dl Lipase 137 U/L Free Thyroxine 1.00 ng/dl Salicylates Level < 1.7 mg/dl Acetaminophen Level < 2 ug/ml Ethyl Alcohol mg/dL < 3.0 mg/dl Mental Examination During interview pt is: alert and oriented, cooperative Appearance: appropriately dressed Eye contact is: good Motor behavior is: steady gait & station Speech: normal in rate, rhythm & volume Affect: blunted, other (rather calm in affect not congruent) Mood is: depressed, other Thought process: goal directed, clear, coherent Suicidal thought are: denied Homicidal thoughts are: present (AH telling him to do bad things ot hurt those tied to [facility] staff (where mother ) and pt has some aggressive thoughts to 's children over how handled burial but denied actual intent or plan when had him elaborate), Plan: denied, Intent: denied Hallucinations: auditory Cognition: other (concentration and attention impaired ) Intelligence estimated to be: below average Insight: impaired Judgement: impaired Impression / Recommendations Impression schizophrenia probable Intellectual disability lives by self has home health nursing come 2 times a week (two different people once each per week) pt reports out of Abilify for perhaps 6 weeks , reported as 30mg 1 p tab po hs , till ran out of it, AH and related schizophrenia symptoms worsened as off this med. Pt indicates on remeron 7.5mg hs. h/o [place] x 3, asthma, Arthritis, obesity, HTN, DM 201 admission Inventory Assets Strengths: seeking inpt treatment including medication, seeking outpt followup Needs: assistance with maintaining proper medication guidance,bereavement support and more social support Risk Factors Assessment Male: Yes : Yes /single/: Yes Access to guns: No Health problems: Yes Mental Health Diagnoses: Yes Substance use disorders: No Previous attempt: No Previous psychiatric stay: Yes Hopelessness: No Smoker: No Protective Factors Assessment Employed: No Recommendations (1) Paranoid schizophrenia 06/18 - resume Abilify, will resume at 30mg hs since reported dose, plus more likely to be more fully alleviating then at 25mg plus more likely to be an easily covered dose then 20mg plus 5mg . 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 - mielui and individual and group therapy - arrange family meeting as appropriate perhaps brother or children of - coordinate with Home health nursing for collateral but also to help ensure approapite med rec in outpt setting - bereavement support -appears to have gotten fasting labs including lipids and glucose at the [facility] under order by outpt psychiatrist guillermo steele to track down and if unable to will repeat these labs during hospital stay (2) Homicidal ideation on homicidal checks clarifying if pt was truly searching for how to make a bomb, pt indicates in assessment that was just watching a show that included that topic. clarifying safety concerns and any homicidal intent or ideation towards people in general and towards [place] and 's children (in assessment pt indicated AH against [place] but chronic and that pt able to not act on and ignore, and that frustrations at 's children makes him wish that something negative might happen to them does not have intent or plan to cause them harm. will continue to assess and address as appropriate. (3) Diabetes 06/18 - maintained outpt metformin, accuchecks maintained other outpt meds (4) Hypertension 06/18 - maintained outpt hypertensive med CPT Code Initial Hospital Care: [id number]
[2017-06-18] MEDS ORDERED: MIRTAZAPINE TAB 15 MG TAB PO SCH (21:00)
[2017-06-18] MEDS: ARIPIprazole TAB 15 MG TAB PO SCH (22:16)
[2017-06-18] MEDS: MIRTAZAPINE TAB 15 MG TAB PO SCH (22:16)
[2017-06-18] MEDS: SIMVASTATIN 20 MG TAB PO SCH (22:16)
[2017-06-19] MEDS ORDERED: INFLUENZA VIRUS QUAD VACCINE 0.5 ML SYR IM. ONE (02:45)
[2017-06-19] MEDS ORDERED: INFLUENZA ADMINISTRATION CHARGE ONE (02:45)
[2017-06-19 07:02] VITALS: BP_SYST 122; BP_SYST 124; BP_DIAS 83; BP_DIAS 85; PULSE 88; PULSE 98; TEMP 36.5
[2017-06-19 07:55] LABS: INR 2.3 (0.9-1.1); PROTHROMBIN TIME (PATIENT) 25.9 SECONDS (9.0-12.0)
[2017-06-19] MEDS: DILTIAZEM HCL 240 MG CAPCR PO SCH (09:04)
[2017-06-19] MEDS: ASPIRIN 81 MG ECTAB PO SCH (09:05)
[2017-06-19] MEDS: PANTOprazole SOD 40 MG TAB PO SCH (09:05)
[2017-06-19] MEDS: METFORMIN HCL 500 MG TAB PO SCH ×2 (09:05→17:45)
--- NOTE | 2017-06-19 15:36 | Psychiatric Progress Notes ---
Progress Note Date of Service Jun 19, 2017. Chief Complaint "I am ok, feeling better". Subjective Patient was seen & assessed interval progress reviewed with nursing. Pt denied AH. denied HI or SI. denied desire try to build a bomb and that was only referencing a TV show that he watched that had building a bomb as part of the show. he denied aggressive intent to children of his or to [facility]. , he does have anger at his 's children over the closed casket decision but does not intend to do them harm nor have intent or plan to do so over this or any other concerns. Pt refuses to go to groups indicating that when was in school had 1:1 interactions only and that groups are not helpful for him. Pt glad to be back on Abilify and denied s/e to it or his other meds and feels it is helping him. He endorsed feeling better in his mood today. He denied paranoid thinking. No agitated behaviors or comments noted by staff or commercial lines underwriter, isolating to his bed. Review of Systems Constitutional: No fever, No chills, No sweats, No weight loss, No weakness, No fatigue, No problem reported Respiratory: No cough, No sputum, No wheezing, No shortness of breath, No dyspnea on exertion, No dyspnea at rest, No hemoptysis, No problem reported Abdomen: + pain Musculoskeletal: No joint pain, No muscle pain, No swelling, No calf pain, No problem reported Psychiatric: + depression symptoms Sleep Information Total Hours of Sleep: 6.75 Meal Information Percent of Breakfast Consumed: 100 Percent of Lunch Consumed: 95 Percent of Dinner Consumed: 100 Mental Status Exam During interview pt is: alert and oriented, cooperative Appearance: appropriately dressed Eye contact is: good Motor behavior is: steady gait & station Speech: normal in rate, rhythm & volume Affect: blunted Mood is: dysphoric, other (better ) Thought process: goal directed, clear, coherent Suicidal thought are: denied Homicidal thoughts are: denied, Plan: denied, Intent: denied Hallucinations: denies auditory Cognition: other (concentration and attention impaired ) Intelligence estimated to be: below average Insight: impaired Judgement: impaired Impression schizophrenia probable Intellectual disability lives by self has home health nursing come 2 times a week (two different people once each per week) pt reports out of Abilify for perhaps 6 weeks , reported as 30mg 1 p tab po hs , till ran out of it, AH and related schizophrenia symptoms worsened as off this med. Pt indicates on remeron 7.5mg hs. h/o [place] x 3, asthma, Arthritis, obesity, HTN, DM 201 admission Plan (1) Paranoid schizophrenia 06/18 - resume Abilify, will resume at 30mg hs since reported dose, plus more likely to be more fully alleviating then at 25mg plus more likely to be an easily covered dose then 20mg plus 5mg . as pt reports taking Abilify since Sep to april commercial lines underwriter is thinking this med is covered by his insurance, - aim to obtain collateral and coordinate with outpt provider on Tuesday - clarifying safety concerns as below in HI section on HI checks - raise remeron to 15mg since less likely to be oversedating med at that dose then at 7.5mg hs. - mielui and individual and group therapy - arrange family meeting as appropriate perhaps brother or children of - coordinate with Home health nursing for collateral but also to help ensure approapite med rec in outpt setting - bereavement support -appears to have gotten fasting labs including lipids and glucose at [facility] under order by outpt psychiatrist guillermo steele to track down and if unable to will repeat these labs during hospital stay (2) Homicidal ideation on homicidal checks clarifying if pt was truly searching for how to make a bomb, pt indicates in assessment that was just watching a show that included that topic. clarifying safety concerns and any homicidal intent or ideation towards people in general and towards [place] and 's children (in assessment pt indicated AH against [place] but chronic and that pt able to not act on and ignore, and that frustrations at 's children makes him wish that something negative might happen to them does not have intent or plan to cause them harm. will continue to assess and address as appropriate. (3) Diabetes 06/18 - maintained outpt metformin, accuchecks maintained other outpt meds (4) Hypertension 06/18 - maintained outpt hypertensive med Discharge / Aftercare Planning Primary Care Physician: Name: Dr. Manan Bartholomew (Ivan) Therapist: Name: unsure of name Material Handling Supervisor: Name: unsure of name Visit Code E&M Code: 80149 Inventory Assets Strengths: seeking inpt treatment including medication, seeking outpt followup Needs: assistance with maintaining proper medication guidance,bereavement support and more social support Risk Factors Assessment Male: Yes : Yes /single/: Yes Health problems: Yes Mental Health Diagnoses: Yes Substance use disorders: No Previous attempt: No Previous psychiatric stay: Yes Hopelessness: No Smoker: No Protective Factors Assessment Employed: No Data Vital Signs Last 24 Hrs: Date Time Temp Pulse Resp B/P (MAP) Pulse Ox O2 Delivery O2 Flow Rate FiO2 06/19/17 07:02 36.5 88 18 122/85 98 124/83 Meds Administered Last 24 Hrs: Meds Administered (Past 24Hrs) Medications (Trade) Dose Ordered Sig/Prashant Route Start Time Stop Time Status Last Admin Dose Admin Aspirin (Ecotrin Tab) 81 mg DAILY PO 06/18/17 09:00 07/18/17 08:59 06/19/17 09:05 81 MG Metformin HCl (Glucophage Tab) 500 mg BIDM PO 06/18/17 08:00 07/18/17 07:59 06/19/17 09:05 500 MG Pantoprazole Sodium (Protonix Tab) 40 mg DAILY PO 06/18/17 09:00 07/18/17 08:59 06/19/17 09:05 40 MG Simvastatin (Zocor Tab) 20 mg QPM PO 06/18/17 21:00 07/18/17 20:59 06/18/17 22:16 20 MG Warfarin Sodium (Coumadin Tab) 7.5 mg DAILY@1600 PO 06/18/17 16:00 07/18/17 15:59 06/18/17 16:47 7.5 MG Diltiazem HCl (Cardizem Cd Cap) 240 mg DAILY PO 06/18/17 09:00 07/18/17 08:59 06/19/17 09:04 240 MG Lorazepam (Ativan Tab) 1 mg NOW STAT SL 06/17/17 21:50 06/17/17 21:52 DC 06/17/17 22:03 1 MG Haloperidol (Haldol Tab) 5 mg ONE STAT PO 06/17/17 21:50 06/17/17 21:52 DC 06/17/17 22:03 5 MG Aripiprazole (Abilify Tab) 30 mg HS PO 06/18/17 22:00 07/18/17 21:59 06/18/17 22:16 30 MG Mirtazapine (Remeron Tab) 15 mg HS PO 06/18/17 22:00 07/18/17 20:59 06/18/17 22:16 15 MG Influenza Virus Vaccine Quadrival (Flucelvax Quad Vaccine) 0.5 ml ONCE ONCE IM. 06/19/17 02:45 06/19/17 02:46 DC 06/19/17 02:45 0.5 ML Lab Results Last 24 Hrs: Last 24 Hours Test 06/19/17 07:18 06/19/17 07:21 Prothrombin Time 25.9 SECONDS Prothromb Time International Ratio 2.3 Bedside Glucose 106 mg/dl
[2017-06-19] MEDS: WARFARIN SOD 7.5 MG TAB PO SCH (16:09)
[2017-06-19] MEDS: ARIPIprazole TAB 15 MG TAB PO SCH (21:14)
[2017-06-19] MEDS: SIMVASTATIN 20 MG TAB PO SCH (21:14)
[2017-06-19] MEDS: MIRTAZAPINE TAB 15 MG TAB PO SCH (21:14)
[2017-06-20 06:54] VITALS: BP_SYST 115; BP_SYST 132; BP_DIAS 81; BP_DIAS 95; PULSE 88; TEMP 36.3
[2017-06-20 07:38] LABS: INR 2.8 (0.9-1.1); PROTHROMBIN TIME (PATIENT) 31.7 SECONDS (9.0-12.0)
[2017-06-20] MEDS: ASPIRIN 81 MG ECTAB PO SCH (08:28)
[2017-06-20] MEDS: PANTOprazole SOD 40 MG TAB PO SCH (08:28)
[2017-06-20] MEDS: DILTIAZEM HCL 240 MG CAPCR PO SCH (08:28)
[2017-06-20] MEDS: METFORMIN HCL 500 MG TAB PO SCH ×2 (08:28→17:37)
--- NOTE | 2017-06-20 11:43 | Psychiatric Progress Notes ---
Progress Note Date of Service Jun 20, 2017. Interval History Gómez May is a 62-year-old male who currently lives alone in [place]. Gómez May was admitted on a 201 voluntary. Patient is admitted from home The patient was brought to the ED by the police. Information provided by the patient is considered to be reliable but limited by his mental health conditions Chief Complaint "Okay". Subjective Patient was seen & assessed interval progress reviewed with Treatment Team. Staff report the patient isolates in his room and refuses all groups. He has been taking medications, is cooperative with staff, and is eating and sleeping well. His outpatient case management rn, Perez Hester, visited today and told staff that the patient has not been able to get his Abilify because he did not follow through on getting fasting labs done. The patient states that his mood is "good ," and denies thoughts of harming himself or others. He denies that he ever made threats to harm others, and says that he was "just watching murder stories , a show about making bombs." He denies auditory hallucinations, and states that he is spending his time in his room resting. He says he will not go to any groups, because "I was in special classes." He denies side effects to medications. He says at home, he likes to spend his time outdoors or going for walks. Sleep Information Total Hours of Sleep: 7.75 Meal Information Percent of Breakfast Consumed: 100 Percent of Lunch Consumed: 95 Percent of Dinner Consumed: 100 Mental Status Exam During interview pt is: alert and oriented, cooperative Appearance: appropriately dressed Eye contact is: poor Motor behavior is: steady gait & station, no abnormal motor movements Speech: normal in rate, rhythm & volume Affect: other (appears tired, having been aroused from bed although it is midday) Mood is: other ("good") Thought process: goal directed, concrete Suicidal thought are: denied Homicidal thoughts are: denied Hallucinations: denies auditory, denies visual Cognition: other (all spheres impaired) Intelligence estimated to be: below average Insight: impaired Judgement: impaired Impression schizophrenia Intellectual disability lives alone in an apartment in [place], has home health nursing come 2 times a week (two different people once each per week). pt reports out of Abilify for perhaps 6 weeks, reported as 30mg 1 p tab po hs, till ran out of it, AH and related schizophrenia symptoms worsened as off this med. Pt indicates on remeron 7.5mg hs. h/o NE x 3, asthma, Arthritis, obesity, HTN, DM 201 admission Plan (1) Paranoid schizophrenia 06/18 - resume Abilify, will resume at 30mg hs since reported dose, plus more likely to be more fully alleviating then at 25mg plus more likely to be an easily covered dose then 20mg plus 5mg . as pt reports taking Abilify since Sep to april gag writer is thinking this med is covered by his insurance, - aim to obtain collateral and coordinate with outpt provider on Tuesday - clarifying safety concerns as below in HI section on HI checks - raise remeron to 15mg since less likely to be oversedating med at that dose then at 7.5mg hs. - mielui and individual and group therapy - arrange family meeting as appropriate perhaps brother or children of - coordinate with Home health nursing for collateral but also to help ensure appropriate med rec in outpt setting - bereavement support -appears to have gotten fasting labs including lipids and glucose at [facility] under order by outpt psychiatrist - will attempt to track down and if unable to will repeat these labs during hospital stay 06/19 - Fasting labs completed at [facility] on 06/16/17: glucose 111, Hgb A1C 6.2. Chol, triglycerides, LDL, and HDL all within normal limits. Apparently these results are needed in order for his insurance to cover his aripiprazole. - Outpatient [facility] Perez Hester met with the patient today in the hospital. He has [employer] med management, and we will need to ensure coordination with his outpatient providers prior to discharge. (2) Homicidal ideation on homicidal checks clarifying if pt was truly searching for how to make a bomb, pt indicates in assessment that was just watching a show that included that topic. clarifying safety concerns and any homicidal intent or ideation towards people in general and towards [place] and 's children (in assessment pt indicated AH against [place] but chronic and that pt able to not act on and ignore, and that frustrations at 's children makes him wish that something negative might happen to them does not have intent or plan to cause them harm. will continue to assess and address as appropriate. 06/20 - Patient has consistently denied homicidal thoughts here, has been calm and cooperative, and not aggressive or threatening towards others. (3) Diabetes 06/18 - maintained outpt metformin, accuchecks maintained other outpt meds (4) Hypertension 06/18 - maintained outpt hypertensive med Discharge / Aftercare Planning Primary Care Physician: Name: Dr. Manan Bartholomew ([facility]ian) Therapist: Name: unsure of name Project Management Consultant: Name: unsure of name Visit Code E&M Code: 83765 Inventory Assets Strengths: seeking inpt treatment including medication, seeking outpt followup Needs: assistance with maintaining proper medication guidance,bereavement support and more social support Risk Factors Assessment Male: Yes : Yes /single/: Yes Health problems: Yes Mental Health Diagnoses: Yes Substance use disorders: No Previous attempt: No Previous psychiatric stay: Yes Hopelessness: No Smoker: No Protective Factors Assessment Employed: No Data Vital Signs Last 24 Hrs: Date Time Temp Pulse Resp B/P (MAP) Pulse Ox O2 Delivery O2 Flow Rate FiO2 06/20/17 06:54 36.3 88 16 115/81 132/95 Meds Administered Last 24 Hrs: Meds Administered (Past 24Hrs) Medications (Trade) Dose Ordered Sig/Prashant Route Start Time Stop Time Status Last Admin Dose Admin Simvastatin (Zocor Tab) 20 mg QPM PO 06/18/17 21:00 07/18/17 20:59 06/19/17 21:14 20 MG Warfarin Sodium (Coumadin Tab) 7.5 mg DAILY@1600 PO 06/18/17 16:00 07/18/17 15:59 06/19/17 16:09 7.5 MG Aripiprazole (Abilify Tab) 30 mg HS PO 06/18/17 22:00 07/18/17 21:59 06/19/17 21:14 30 MG Mirtazapine (Remeron Tab) 15 mg HS PO 06/18/17 22:00 07/18/17 20:59 06/19/17 21:14 15 MG Influenza Virus Vaccine Quadrival (Flucelvax Quad Vaccine) 0.5 ml ONCE ONCE IM. 06/19/17 02:45 06/19/17 02:46 DC 06/19/17 02:45 0.5 ML Lab Results Last 24 Hrs: Last 24 Hours Test 06/20/17 07:10 06/20/17 08:13 Prothrombin Time 31.7 SECONDS Prothromb Time International Ratio 2.8 Bedside Glucose 167 mg/dl
[2017-06-20] MEDS: WARFARIN SOD 7.5 MG TAB PO SCH (15:43)
[2017-06-20] MEDS: SIMVASTATIN 20 MG TAB PO SCH (21:01)
[2017-06-20] MEDS: ARIPIprazole TAB 15 MG TAB PO SCH (21:01)
[2017-06-20] MEDS: MIRTAZAPINE TAB 15 MG TAB PO SCH (21:01)
[2017-06-20] MEDS: hydrOXYzine HCL 25 MG TAB PO PRN (21:01)
[2017-06-21 06:54] VITALS: BP_SYST 121; BP_SYST 141; BP_DIAS 87; BP_DIAS 91; PULSE 67; PULSE 82; TEMP 36.4
[2017-06-21 08:24] LABS: INR 3.4 (0.9-1.1); PROTHROMBIN TIME (PATIENT) 38.4 SECONDS (9.0-12.0)
--- NOTE | 2017-06-21 09:00 | Psychiatric Progress Notes ---
Progress Note Date of Service Jun 21, 2017. Interval History Gómez May is a 62-year-old male who currently lives alone in [place]. Gómez May was admitted on a 201 voluntary. Patient is admitted from home The patient was brought to the ED by the police. Information provided by the patient is considered to be reliable but limited by his mental health conditions Chief Complaint "Okay". Subjective Patient was seen & assessed interval progress reviewed with Nursing. Staff report he is refusing all groups and isolates in room. He is eating, sleeping, and taking medication as prescribed. He continues to deny SI and HI. His shoe caser, Perez Engle, met with him on the unit yesterday. He told staff that the patient had said he knew where to get components to make a bomb, at a local [employer]. He is in the process of applying for a waiver for the patient so he can get additional in home services, and they are looking into personal care homes. He says he doesn't know why [facility] staff called the police, although per records he was talking about making a bomb, and told ER staff he had thoughts to harm people who had wronged him in the past. Today he denies that he was planning to make a bomb, says "it was on TV, that was all. It was a crime thing, I watch it all the time." He admits that he was angry at people who made the decision to have a closed casket at his mother's in Oct., because "I didn't get to see her when she ." He doesn't know who it was that made that decision, and denies any thoughts to harm anyone else today. Mood is "okay," and he denies concerns. He continues to say he doesn't want to work with [facility] anymore as "they called the police on me." He is willing to continue to work with his psychiatrist and shoe caser. Sleep Information Total Hours of Sleep: 8.50 Meal Information Percent of Breakfast Consumed: 100 Percent of Lunch Consumed: 90 Percent of Dinner Consumed: 100 Mental Status Exam During interview pt is: alert and oriented, cooperative Appearance: appropriately dressed, appropriately groomed, other (obese) Eye contact is: poor Motor behavior is: steady gait & station, no abnormal motor movements Speech: normal in rate, rhythm & volume Affect: other (stable and mood congruent ) Mood is: other ("good") Thought process: goal directed, concrete Thought content: reality based without delusions Suicidal thought are: denied Homicidal thoughts are: denied Hallucinations: denies auditory, denies visual Cognition: other (all spheres impaired) Intelligence estimated to be: below average Insight: impaired Judgement: impaired Impression Schizophrenia Intellectual disability Lives alone in an apartment in [place], has home health nursing twice weekly (two different people, once each per week). He report he has been out of Abilify for perhaps 6 weeks, reported as 30mg 1 p tab po hs. AH and related schizophrenia symptoms worsened off this med. Also takes Remeron 7.5mg hs. Ran out of Abilify as insurance would not cover it until he got fasting labs done. They were completed at OSH on 06/16/17, and we have obtained results. He has been restarted on medications here, AH are improving. Outpatient [facility] met with him on the unit, and is attempting to get waiver services for increased in home supports, and exploring personal jail. 201 admission Plan (1) Paranoid schizophrenia 06/18 - resume Abilify, will resume at 30mg hs since reported dose, plus more likely to be more fully alleviating then at 25mg plus more likely to be an easily covered dose then 20mg plus 5mg . as pt reports taking Abilify since Sep to april ghost writer is thinking this med is covered by his insurance, - aim to obtain collateral and coordinate with outpt provider on Tuesday - clarifying safety concerns as below in HI section on HI checks - raise remeron to 15mg since less likely to be oversedating med at that dose then at 7.5mg hs. - mielui and individual and group therapy - arrange family meeting as appropriate perhaps brother or children of - coordinate with Home health nursing for collateral but also to help ensure appropriate med rec in outpt setting - bereavement support -appears to have gotten fasting labs including lipids and glucose at [facility] under order by outpt psychiatrist - will attempt to track down and if unable to will repeat these labs during hospital stay 06/20 - Fasting labs completed at [facility] on 06/16/17: glucose 111, Hgb A1C 6.2. Chol, triglycerides, LDL, and HDL all within normal limits. Apparently these results are needed in order for his insurance to cover his aripiprazole. - Outpatient M Perez Hester met with the patient today in the hospital. He has [facility] med management, and we will need to ensure coordination with his outpatient providers prior to discharge. 06/21 - Discussed transitioning to a long acting injectable (Abilify Maintena), and explained benefits to patient. He is not willing to get the shot now, but says he will think about it. Will defer to outpatient psychiatrist. - Need to arrange OP follow up and coordinate with OP providers. (2) Homicidal ideation on homicidal checks clarifying if pt was truly searching for how to make a bomb, pt indicates in assessment that was just watching a show that included that topic. clarifying safety concerns and any homicidal intent or ideation towards people in general and towards [place] and 's children (in assessment pt indicated AH against [place] but chronic and that pt able to not act on and ignore, and that frustrations at 's children makes him wish that something negative might happen to them does not have intent or plan to cause them harm. will continue to assess and address as appropriate. 06/20 - Patient has consistently denied homicidal thoughts here, has been calm and cooperative, and not aggressive or threatening towards others. (3) Diabetes 06/18 - maintained outpt metformin, accuchecks maintained other outpt meds (4) Hypertension 06/18 - maintained outpt hypertensive med Discharge / Aftercare Planning Primary Care Physician: Name: Dr. Manan Hutton Psychiatrist: Name: Dr Geronimo Therapist: Name: unsure of name Head Counselor: Name: BurtPerez Hetser Visit Code E&M Code: 69729 Inventory Assets Strengths: seeking inpt treatment including medication, seeking outpt followup Needs: assistance with maintaining proper medication guidance,bereavement support and more social support Risk Factors Assessment Male: Yes : Yes /single/: Yes Health problems: Yes Mental Health Diagnoses: Yes Substance use disorders: No Previous attempt: No Previous psychiatric stay: Yes Hopelessness: No Smoker: No Protective Factors Assessment Employed: No Data Vital Signs Last 24 Hrs: Date Time Temp Pulse Resp B/P (MAP) Pulse Ox O2 Delivery O2 Flow Rate FiO2 06/21/17 06:54 36.4 67 16 141/91 82 121/87 Lab Results Last 24 Hrs: Last 24 Hours Test 06/21/17 07:43 06/21/17 07:44 Prothrombin Time 38.4 SECONDS Prothromb Time International Ratio 3.4 Bedside Glucose 121 mg/dl
[2017-06-21] MEDS: METFORMIN HCL 500 MG TAB PO SCH ×2 (09:04→17:28)
[2017-06-21] MEDS: ASPIRIN 81 MG ECTAB PO SCH (09:04)
[2017-06-21] MEDS: DILTIAZEM HCL 240 MG CAPCR PO SCH (09:04)
[2017-06-21] MEDS: PANTOprazole SOD 40 MG TAB PO SCH (09:05)
[2017-06-21] MEDS: WARFARIN SOD 7.5 MG TAB PO SCH (16:43)
[2017-06-21] MEDS: hydrOXYzine HCL 25 MG TAB PO PRN (21:42)
[2017-06-21] MEDS: SIMVASTATIN 20 MG TAB PO SCH (21:42)
[2017-06-21] MEDS: ARIPIprazole TAB 15 MG TAB PO SCH (21:42)
[2017-06-21] MEDS: MIRTAZAPINE TAB 15 MG TAB PO SCH (21:42)
[2017-06-22 07:00] VITALS: BP_SYST 128; BP_SYST 147; BP_DIAS 93; BP_DIAS 94; PULSE 74; PULSE 88; TEMP 36.5
[2017-06-22] MEDS: ASPIRIN 81 MG ECTAB PO SCH (08:29)
[2017-06-22] MEDS: DILTIAZEM HCL 240 MG CAPCR PO SCH (08:29)
[2017-06-22] MEDS: METFORMIN HCL 500 MG TAB PO SCH (08:30)
[2017-06-22] MEDS: PANTOprazole SOD 40 MG TAB PO SCH (08:30)
[2017-06-22 09:36] LABS: INR 3.9 (0.9-1.1); PROTHROMBIN TIME (PATIENT) 44.4 SECONDS (9.0-12.0)
[2017-06-22] MEDS ORDERED: HYDR-3126 PO (09:46)
[2017-06-22] MEDS ORDERED: RMR15 PO (09:46)
[2017-06-22] MEDS ORDERED: ABL15 PO (09:46)
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
== END 2017-06-22 13:05 | disposition home or self-care (01) | DRG 885 ==
LOC: C.EDB 17:16 → C.MHU 21:45 → ENRESERV 22:37
PROVIDERS: ADMIT Psychiatry & Neurology Psychiatry; ATTEND Psychiatry & Neurology Psychiatry
DX: F20.0 Paranoid schizophrenia (principal); R45.850 Homicidal ideations; F79 Unspecified intellectual disabilities; E11.9 Type 2 diabetes mellitus without complications; J45.909 Unspecified asthma, uncomplicated; Z79.01 Long term (current) use of anticoagulants; Z79.82 Long term (current) use of aspirin; Z79.84 Long term (current) use of oral hypoglycemic drugs; Z79.899 Other long term (current) drug therapy

== ENCOUNTER → 2017-12-02 | Outpatient (CLI) | payer OTHER ==
[~2017-12-02] MED LIST changes: -ABL/5 PO; +ABL15 PO; -ARIP20TA4 PO; +HYDR-3126 PO; +RMR15 PO; -RMRS/15 PO
[2017-12-02 17:15] LABS: ALBUMIN 4.4 gm/dl (3.4-5.0); ALT/SGPT 31 U/L (12-78); BLOOD UREA NITROGEN 13 mg/dl (7-18); CALCIUM 9.6 mg/dl (8.5-10.1); CARBON DIOXIDE 31 mmol/L (21-32); CHOLESTEROL 111 mg/dl (0-200); CREATININE 1.09 mg/dl (0.60-1.40); GLUCOSE 172 mg/dl (70-99); POTASSIUM 3.8 mmol/L (3.5-5.1); SODIUM 137 mmol/L (136-145)
[2017-12-02 17:18] LABS: ALKALINE PHOSPHATASE 63 U/L (45-117); AST/SGOT 21 U/L (15-37); LDL CHOLESTEROL CALCULATED 20 mg/dl
== END | disposition home or self-care (01) ==
LOC: C.LABPBG 14:03
PROVIDERS: ATTEND Physician Assistant
DX: Z00.00 Encounter for general adult medical examination without abnormal findings (principal); E78.5 Hyperlipidemia, unspecified; E11.9 Type 2 diabetes mellitus without complications

== ENCOUNTER → 2018-01-05 | Outpatient (CLI) | payer OTHER | END | disposition home or self-care (01) | LOC: C.LABPBG 11:37 | PROVIDERS: ATTEND Internal Medicine Cardiovascular Disease | DX: I51.3 Intracardiac thrombosis, not elsewhere classified (principal) ==

== ENCOUNTER → 2018-05-04 | Outpatient (CLI) | payer OTHER ==
[2018-05-04 17:06] LABS: INR 1.4 (0.9-1.1)
== END | disposition home or self-care (01) ==
LOC: C.LABPBG 12:24
PROVIDERS: ATTEND Internal Medicine Cardiovascular Disease
DX: Z95.1 Presence of aortocoronary bypass graft (principal)

== ENCOUNTER → 2018-05-19 | Outpatient (CLI) | payer OTHER ==
[2018-05-19 16:55] LABS: INR 4.2 (0.9-1.1)
== END | disposition home or self-care (01) ==
LOC: C.LABPBG 14:09
PROVIDERS: ATTEND Internal Medicine Cardiovascular Disease
DX: Z95.1 Presence of aortocoronary bypass graft (principal)

== ENCOUNTER 2022-03-03 11:03 | Inpatient (IN) ==
[2022-03-03] MEDS ORDERED: SODIUM CHLORIDE 0.9% 500 ML IV STA (11:31)
--- NOTE | 2022-03-03 12:10 | Emergency Department Note ---
Impression & Plan Abdominal pain, acute, right upper quadrant, [facility] ED Provider Note NAME: CLIFFORD BROWNING AGE: 66 SEX: M : 1955 ARRIVES VIA: Walk-In INFORMANT: Patient, ED PROVIDER(S): Junito Diaz DO CHIEF COMPLAINT: Abdominal pain HPI: The patient is a 66-year-old male who presented to the emergency department for an evaluation of abdominal pain. The patient describes right-sided abdominal pain which began approximately 1 year ago. He states he was seen by his family doctor and had some scans done at the end of last month. He then had an ultrasound done today. After the ultrasound was done he was called by his primary care physician and told to go to the emergency department for further evaluation. The patient denies having any fever. He does describe some chest discomfort which he states has been ongoing for the same amount of time. He has had nausea but no vomiting. He denies having any black stools but has noticed some rectal bleeding intermittently. He denies having any fever. The patient is unsure why he was told to come back to the emergency department. Patient states his pain is worsened with ambulation as well as food. ROS: See above HPI for pertinent positives & negatives. A total of 10 systems reviewed and were otherwise negative. PAST MEDICAL HISTORY: See Below PAST SURGICAL HISTORY: See Below FAMILY HISTORY: See Below SOCIAL HISTORY: See Below HOME MEDICATIONS: See Below ALLERGIES: See Below VITALS: See Below PHYSICAL EXAMINATION: GENERAL: Patient is awake alert in no acute distress patient is resting comfortably and showing no signs of anxiety EYES: The conjunctivae are clear. The pupils are round and reactive. EARS, NOSE, MOUTH AND THROAT: The nose is without any evidence of any deformity. Mucous membranes are moist. Tongue is midline. NECK: The neck is nontender and supple. RESPIRATORY: Normal respiratory effort is noted there is no evidence of wheezing rhonchi or rales CARDIOVASCULAR: Regular rate and rhythm noted there no murmurs rubs or gallops normal S1 normal S2. GASTROINTESTINAL: The abdomen is distended. There is specific tenderness in the right upper and right lower quadrants. There is guarding in the right lower quadrant as well as right upper quadrant. MUSCULOSKELETAL/EXTREMITIES: There is no evidence of gross deformity full range of motion is noted in the hips and shoulders. SKIN: There is no obvious evidence of any rash. There are no petechiae, pallor or cyanosis noted. NEUROLOGIC: Patient is awake alert and oriented x3 MEDICAL DECISION MAKING: The patient is a 66-year-old male who presented to the emergency department for an evaluation of abdominal pain. The patient's had ongoing symptoms for approximately 1 year. He was seen by surgery in the past for similar complaints. The patient had a CT of the end of January and then also an ultrasound done today. When the primary care physician received the ultrasound report the patient was referred back to the emergency department for further evaluation. I discussed the patient's laboratory and radiographic studies with him. Given his clinical findings as well as the ultrasound I discussed his case with the on- call general surgeon. They evaluated the patient in the emergency department and felt that he would be a good candidate for inpatient management as well as further work-up including HIDA scan. The patient was agreeable to this plan. He was treated with IV fluids and IV antibiotics. The patient was also discussed with the hospitalist group. Triage Nursing notes reviewed. Prior medical records reviewed Vital Signs: reviewed and remarkable for elevated blood pressure. Differential diagnosis: Etiologies such as appendicitis, diverticulitis, obstruction, inflammatory bowel disease, renal colic, PUD, biliary pathology, pancreatitis, mesenteric ischemia, aortic pathology, infections, genitourinary, UTI, perforated viscus, as well as others were entertained. ER treatment provided: See below Diagnostics interpreted by me: ECG: EKG was obtained in the emergency department. My interpretation is normal sinus rhythm at 84 bpm. There was no ectopy. There was no acute ST segment abnormalities noted. Poor wave progression was noted. This was compared to a tracing from June 17, 2017. No changes were noted. Cardiac Monitoring: An order was placed for continuous cardiac monitoring. The monitor shows a rate of 82 bpm with sinus rhythm. Laboratory studies: As stated above and show below. Imaging studies: See below Consultation(s): I discussed his case with Radha who is on-call for the general surgical group. They will evaluate the patient in the emergency department. I discussed this case with Dr. Giles Past Med/Surg History Medical History Arthritis Asthma NO LONGER USES INH> OK WITHOUT IT CAD (coronary artery disease) Cholelithiasis without cholecystitis NO SURGERY YET Chronic sinusitis Chronic sinusitis Depression, major Gout History of cerebellar stroke APPROX 8 YRS AGO> MEMORY ISSUES> OVERALL WEAKNESS> FOLLOWS DR. THURSTON Hyperlipidemia Hypertension Hypertension Intellectual disability Intracardiac thrombosis PT UNAWARE OF DETAILS Mild cognitive impairment Myocardial infarct 3 TOTAL> LAST ONE APPROX 5 YRS AGO > [facility]> DOESN'T FOLLOW CARDIO> JUST RICOTTA Parkinsonism Paroxysmal atrial fibrillation NO PACER> ON METOPROLOL Schizophrenia, paranoid, chronic Schmorl's nodes of lumbar region Sleep apnea Sleep apnea NO CPAP Tremor Type 2 diabetes mellitus NIDDM Vitamin D deficiency Surgical History History of tooth extraction Hx of colonoscopy S/P CABG (coronary artery bypass graft) (2010) x3: approximately 5 years ago. > [facility] Family History Father Cardiac disorder Hypertension Myocardial infarction Heart disease Mother Dementia Diabetes Sister Myocardial infarction Brother Myocardial infarction Hypertension Diabetes Breast cancer Other Allergies FHx: dementia Denies family history of Ovarian cancer Prostate cancer Hearing loss No family history of adverse response to anesthesia No family history of bleeding disorder Colorectal cancer Cancer Stroke Asthma Social History Smoking Status: Never smoker Second Hand Exposure: Yes; Hx Alcohol Use: No Hx Substance Use: No Preferred Language: Bengali Communication Ability: Effective Visual Impairment: No Limitations Hearing Ability: Hard of Hearing Corporate Administrative 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 Required: No Beliefs That Will Affect Care: None marital status: / Current Living Situation: Alone Current Living Situation Comment: Lives alone in own apartment current occupational status: disabled Feels Safe at Home: Yes Childhood Exposure to Second-Hand Smoke: No Diet Comment: regular caffeine: Yes during the past year weight has: remained stable Dental Care, Regularly: Yes Physical Activity Frequency: Does not Exercise Seatbelt Use: always Sunscreen Use: No Assistive Devices: Cane Allergies Allergies Allergy/AdvReac Type Severity Reaction Status Date / Time bee venom protein (honey bee) Allergy Severe Anaphylaxis Verified 03/03/22 12:05 wool AdvReac Intermediate Rash Verified 03/03/22 12:05 Home Meds Home Medications Medication Instructions Recorded Confirmed benztropine 0.5 mg tablet 0.5 mg PO BID 08/29/19 03/03/22 aripiprazole 20 mg tablet 30 mg PO HS tab 07/03/20 03/03/22 lumateperone 42 mg capsule 42 mg PO DAILY 03/03/22 03/03/22 (Caplyta) memantine 10 mg tablet 10 mg PO BID 03/03/22 03/03/22 metoprolol succinate 25 mg 25 mg PO QPM 03/03/22 03/03/22 tablet,extended release 24 hr sertraline 50 mg tablet 50 mg PO QPM 03/03/22 03/03/22 trazodone 150 mg tablet 150 mg PO HS 03/03/22 03/03/22 Previous Rx's Medication Instructions Recorded hydroxyzine HCl 50 mg tablet 50 mg PO BID #60 tab 03/14/20 cholecalciferol (vitamin D3) 50 2,000 unit PO QAM #90 cap 09/24/21 mcg (2,000 unit) capsule diclofenac sodium 1 % topical gel 4 g TOP BID PRN #100 gm 12/03/21 sertraline 100 mg tablet 100 mg PO PM #90 tab 12/14/21 famotidine 20 mg tablet (Pepcid) 20 mg PO DAILY #30 tab 12/25/21 apixaban 5 mg tablet (Eliquis) 5 mg PO BID #60 tab 01/06/22 celecoxib 100 mg capsule (Celebrex) 100 mg PO BID #180 cap 01/06/22 atorvastatin 20 mg tablet 20 mg PO HS #30 tab 01/07/22 acetaminophen 650 mg 650 mg PO Q8H PRN #90 tab 02/05/22 tablet,extended release (Tylenol Arthritis Pain) carbidopa 25 mg-levodopa 100 mg 1 tab PO TID #90 tab 02/05/22 tablet metformin 500 mg tablet,extended 1,000 mg PO BID #360 tab 02/08/22 release 24 hr Results & Data (ED) Vital Signs Vital Signs - 24 hr 03/03/22 11:10 03/03/22 11:31 03/03/22 12:37 Temperature 36.4 C L Temperature Source Temporal Artery Scan Pulse Rate 88 Pulse Rate [Apical] 82 Respiratory Rate 20 18 Respiratory Effort / Characteristics Non-Labored Spontaneous Respiratory Depth Normal Respiratory Pattern Regular Blood Pressure 141/96 H Blood Pressure [Right Arm] 144/96 H Blood Pressure Mean 111 Blood Pressure Mean [Right Arm] 112 Pulse Oximetry 97 94 Oxygen Delivery Method Room Air Room Air Room Air Sepsis Recent Fever Within 48 Hours No Sepsis New/Unexplained Change in Mental Status No Sepsis Action Taken by Nursing No Action Required Home Medications Current Medication List: was personally reviewed by me Laboratory Data Attestation: I reviewed the patient's lab results. Result diagrams: 03/03/22 12:30 03/03/22 11:30 Lab Results 03/03/22 03/03/22 03/03/22 Range/Units 11:30 11:30 11:30 WBC Cancelled RBC Cancelled Hgb Cancelled Hct Cancelled MCV Cancelled MCH Cancelled MCHC Cancelled RDW Std Deviation Cancelled RDW Coeff of Carmella Cancelled Plt Count Cancelled MPV Cancelled Immature Gran % (Auto) Cancelled Neut % (Auto) Cancelled Lymph % (Auto) Cancelled Holt % (Auto) Cancelled Eos % (Auto) Cancelled Baso % (Auto) Cancelled Neut # (Auto) Cancelled Lymph # (Auto) Cancelled Holt # (Auto) Cancelled Eos # (Auto) Cancelled Baso # (Auto) Cancelled Immature Gran # (Auto) Cancelled Absolute Nucleated RBC Cancelled Nucleated RBC % (auto) Cancelled Neutrophils % (Manual) Cancelled Band Neutrophils % Cancelled Lymphocytes % (Manual) Cancelled Prolymphocyte % Cancelled Reactive Lymphs % (Man) Cancelled Monocytes % (Manual) Cancelled Eosinophils % (Manual) Cancelled Basophils % (Manual) Cancelled Metamyelocytes % (Man) Cancelled Myelocytes % (Man) Cancelled Promyelocytes % (Man) Cancelled Blast Cells % (Manual) Cancelled Plasma Cell % (Manual) Cancelled Other Cells % Cancelled Nucleated RBC % Cancelled Neutrophils # (Manual) Cancelled Band Neutrophils # Cancelled Total Absolute Neuts Cancelled Lymphocytes # (Manual) Cancelled Prolymphocyte # Cancelled Reactive Lymphs # Cancelled Total Abs Lymphocytes Cancelled Monocytes # (Manual) Cancelled Eosinophils # (Manual) Cancelled Basophils # (Manual) Cancelled Metamyelocytes # (Man) Cancelled Myelocytes # (Manual) Cancelled Promyelocytes # (Man) Cancelled Blast Cells # (Man) Cancelled Plasma Cell # (Manual) Cancelled Other Cells # Cancelled Nucleated RBCs # (Man) Cancelled Hypersegmented Neuts Cancelled Hyposegmented Neuts Cancelled Hypogranular Neuts Cancelled Large Granular Lymphs Cancelled # Lrg Granular Lymphs Cancelled Hairy Cells Cancelled Smudge Cells Cancelled Toxic Granulation Cancelled Toxic Vacuolation Cancelled Dohle Bodies Cancelled Ming Rods Cancelled Platelet Estimate Cancelled Hypogranular Platelets Cancelled Clumped Platelets Cancelled Giant Platelets Cancelled Platelet Satelliting Cancelled RBC Morphology Cancelled Polychromasia Cancelled Hypochromasia Cancelled Poikilocytosis Cancelled Basophilic Stippling Cancelled Anisocytosis Cancelled Microcytosis Cancelled Macrocytosis Cancelled Spherocytes Cancelled Pappenheimer Bodies Cancelled Sickle Cells Cancelled Target Cells Cancelled Tear Drop Cells Cancelled Ovalocytes Cancelled Stomatocytes Cancelled Liriano-[place] Bodies Cancelled Echinocytes Cancelled Acanthocytes (Spur) Cancelled Rouleaux Cancelled RBC Agglutinates Cancelled Schistocytes Cancelled RBC Morph Comment Cancelled Sezary Cell Cancelled PT 11.1 (9.0-12.0) Seconds INR 1.0 (0.9-1.1) APTT 23.9 (21.0-31.0) Seconds PTT Ratio 0.9 Sodium 139 (136-145) mmol/L Potassium 4.3 (3.5-5.1) mmol/L Chloride 102 (98-107) mmol/L Carbon Dioxide 30 (21-32) mmol/L Anion Gap 7 (3-11) BUN 12 (6-23) mg/dl Creatinine 1.11 (0.6-1.4) mg/dl Est Cr Clr Drug Dosing 75.7 ml/min Est GFR ( Amer) 80.9 ml/min Est GFR (Non-Af Amer) 69.8 ml/min BUN/Creatinine Ratio 10.8 (10-20) Glucose 108 H (70-99(Fasting)) mg/dl Calcium 9.2 (8.5-10.1) mg/dl Total Bilirubin 0.6 (0.2-1.0) mg/dl AST 29 (13-39) U/L ALT 28 (7-52) U/L Alkaline Phosphatase 95 (34-104) U/L Troponin I High Sens 6.0 (0-20) pg/ml Total Protein 7.2 (6.0-8.3) gm/dl Albumin 3.9 (3.4-5.0) gm/dl Globulin 3.3 (2.5-4.0) gm/dl Albumin/Globulin Ratio 1.2 (0.9-2) Lipase 9 L (11-82) U/L Urine Color Urine Appearance (Clear) Urine pH (4.5-7.5) Ur Specific [place] (1.000-1.030) Urine Protein (Negative) Urine Glucose (UA) (Negative) Urine Ketones (Negative) Urine Blood (Negative) Urine Nitrite (Negative) Urine Bilirubin (Negative) Urine Urobilinogen (Negative) Ur Leukocyte Esterase (Negative) SARS-CoV-2, RNA, NAAT (NEGATIVE) 03/03/22 03/03/22 03/03/22 Range/Units 11:35 12:30 13:18 WBC 9.84 RBC 5.05 Hgb 13.3 L Hct 41.0 L MCV 81.2 MCH 26.3 MCHC 32.4 RDW Std Deviation 42.6 RDW Coeff of Carmella 14.4 Plt Count 341 MPV 8.8 Immature Gran % (Auto) 0.3 Neut % (Auto) 71.9 Lymph % (Auto) 14.8 Holt % (Auto) 8.3 Eos % (Auto) 4.5 Baso % (Auto) 0.2 Neut # (Auto) 7.07 H Lymph # (Auto) 1.46 Holt # (Auto) 0.82 H Eos # (Auto) 0.44 Baso # (Auto) 0.02 Immature Gran # (Auto) 0.03 H Absolute Nucleated RBC Nucleated RBC % (auto) Neutrophils % (Manual) Band Neutrophils % Lymphocytes % (Manual) Prolymphocyte % Reactive Lymphs % (Man) Monocytes % (Manual) Eosinophils % (Manual) Basophils % (Manual) Metamyelocytes % (Man) Myelocytes % (Man) Promyelocytes % (Man) Blast Cells % (Manual) Plasma Cell % (Manual) Other Cells % Nucleated RBC % Neutrophils # (Manual) Band Neutrophils # Total Absolute Neuts Lymphocytes # (Manual) Prolymphocyte # Reactive Lymphs # Total Abs Lymphocytes Monocytes # (Manual) Eosinophils # (Manual) Basophils # (Manual) Metamyelocytes # (Man) Myelocytes # (Manual) Promyelocytes # (Man) Blast Cells # (Man) Plasma Cell # (Manual) Other Cells # Nucleated RBCs # (Man) Hypersegmented Neuts Hyposegmented Neuts Hypogranular Neuts Large Granular Lymphs # Lrg Granular Lymphs Hairy Cells Smudge Cells Toxic Granulation Toxic Vacuolation Dohle Bodies Ming Rods Platelet Estimate Hypogranular Platelets Clumped Platelets Giant Platelets Platelet Satelliting RBC Morphology Polychromasia Hypochromasia Poikilocytosis Basophilic Stippling Anisocytosis Microcytosis Macrocytosis Spherocytes Pappenheimer Bodies Sickle Cells Target Cells Tear Drop Cells Ovalocytes Stomatocytes Liriano-[place] Bodies Echinocytes Acanthocytes (Spur) Rouleaux RBC Agglutinates Schistocytes RBC Morph Comment Sezary Cell PT (9.0-12.0) Seconds INR (0.9-1.1) APTT (21.0-31.0) Seconds PTT Ratio Sodium (136-145) mmol/L Potassium (3.5-5.1) mmol/L Chloride (98-107) mmol/L Carbon Dioxide (21-32) mmol/L Anion Gap (3-11) BUN (6-23) mg/dl Creatinine (0.6-1.4) mg/dl Est Cr Clr Drug Dosing ml/min Est GFR ( Amer) ml/min Est GFR (Non-Af Amer) ml/min BUN/Creatinine Ratio (10-20) Glucose (70-99(Fasting)) mg/dl Calcium (8.5-10.1) mg/dl Total Bilirubin (0.2-1.0) mg/dl AST (13-39) U/L ALT (7-52) U/L Alkaline Phosphatase (34-104) U/L Troponin I High Sens (0-20) pg/ml Total Protein (6.0-8.3) gm/dl Albumin (3.4-5.0) gm/dl Globulin (2.5-4.0) gm/dl Albumin/Globulin Ratio (0.9-2) Lipase (11-82) U/L Urine Color Yellow Urine Appearance Clear (Clear) Urine pH 6.5 (4.5-7.5) Ur Specific [place] 1.015 (1.000-1.030) Urine Protein Negative (Negative) Urine Glucose (UA) Negative (Negative) Urine Ketones Negative (Negative) Urine Blood Negative (Negative) Urine Nitrite Negative (Negative) Urine Bilirubin Negative (Negative) Urine Urobilinogen Negative (Negative) Ur Leukocyte Esterase Negative (Negative) SARS-CoV-2, RNA, NAAT NEGATIVE (NEGATIVE) Administered Medications Discontinued Medications Sodium Chloride (Nss) 500 mls @ 999 mls/hr IV .Q31M STA Stop: 03/03/22 12:01 Last Infusion: 03/03/22 12:59 Dose: 0 mls/hr Documented by: [id number] Admin: 03/03/22 11:47 Dose: 999 mls/hr Documented by: [id number] Cefoxitin Sodium (Mefoxin) 2,000 mg in 60 mls @ 100 mls/hr IV NOW STA Stop: 03/03/22 13:48 Last Admin: 03/03/22 14:00 Dose: 100 mls/hr Documented by: [id number] Imaging Data Radiologist's Impression: Chest X-Ray 03/03/22 11:31 XR chest 1V portable, XR KUB/Abdomen 1 view HISTORY: 66 years-old Male right sided pain acute atypical chest pain with acute generalized abdominal pain COMPARISON: CT abdomen pelvis 02/18/2022, chest radiograph 06/17/2017 TECHNIQUE: AP view of the chest with KUB radiograph FINDINGS: CHEST: Cardiomegaly. Coronary arterial stent. No pneumothorax, pleural effusion, airsp [place] consolidation or overt pulmonary edema. Bones appear grossly intact. KUB: Cholelithiasis. Nonobstructive bowel gas pattern. The patient's known left nephrolithiasis are obscured by bowel gas. Pelvic basin phleboliths redemonstrated. No pneumatosis or pneumoperitoneum. Mild to moderate fecal retention. Degenerative changes of the spine, pelvis and hips. IMPRESSION: 1. Cardiomegaly without acute process of the chest. 2. Nonobstructive bowel gas pattern. 3. Cholelithiasis. 4. The patient's known left nephrolithiasis are obscured by bowel gas. ACT 112: Negative or not required by law. The above report was generated using voice recognition software. It may contain grammatical, syntax or spelling errors. Electronically signed by: River Banuelos M.D. 03/03/2022 12:15 PM KUB X-Ray 03/03/22 11:31 XR chest 1V portable, XR KUB/Abdomen 1 view HISTORY: 66 years-old Male right sided pain acute atypical chest pain with acute generalized abdominal pain COMPARISON: CT abdomen pelvis 02/18/2022, chest radiograph 06/17/2017 TECHNIQUE: AP view of the chest with KUB radiograph FINDINGS: CHEST: Cardiomegaly. Coronary arterial stent. No pneumothorax, pleural effusion, ai rspace consolidation or overt pulmonary edema. Bones appear grossly intact. KUB: Cholelithiasis. Nonobstructive bowel gas pattern. The patient's known left nephrolithiasis are obscured by bowel gas. Pelvic basin phleboliths redemonstrated. No pneumatosis or pneumoperitoneum. Mild to moderate fecal retention. Degenerative changes of the spine, pelvis and hips. IMPRESSION: 1. Cardiomegaly without acute process of the chest. 2. Nonobstructive bowel gas pattern. 3. Cholelithiasis. 4. The patient's known left nephrolithiasis are obscured by bowel gas. ACT 112: Negative or not required by law. The above report was generated using voice recognition software. It may contain grammatical, syntax or spelling errors. Electronically signed by: River Banuelos M.D. 03/03/2022 12:15 PM Discharge Plan Visit Data Chief Complaint: Abdominal Pain Stated Complaint: CT ON GALLBLADDER, DR KYRA ED Provider: Junito Diaz Discharge Problem: Abdominal pain, acute, right upper quadrant, [place] Patient Disposition: Being Evaluated by Hospitalist Forms Stand Alone Forms: [place] Prescriptions Prescriptions: No Action hydroxyzine HCl 50 mg tablet 50 mg PO BID Qty: 60 RF: 5 aripiprazole 20 mg tablet 30 mg PO HS RF: 0 cholecalciferol (vitamin D3) 50 mcg (2,000 unit) capsule 2,000 unit PO QAM Qty: 90 RF: 2 diclofenac sodium 1 % gel 4 g TOP BID PRN (Reason: knee pain) Qty: 100 RF: 3 sertraline 100 mg tablet 100 mg PO PM Qty: 90 RF: 1 famotidine [Pepcid] 20 mg tablet 20 mg PO DAILY Qty: 30 RF: 2 Eliquis 5 mg tablet 5 mg PO BID Qty: 60 RF: 5 celecoxib [Celebrex] 100 mg capsule 100 mg PO BID Qty: 180 RF: 1 atorvastatin 20 mg tablet 20 mg PO HS Qty: 30 RF: 5 metformin 500 mg tablet extended release 24 hr 1,000 mg PO BID Qty: 360 RF: 1 acetaminophen [Tylenol Arthritis Pain] 650 mg tablet extended release 650 mg PO Q8H PRN (Reason: pain) Qty: 90 RF: 1 carbidopa-levodopa 25-100 mg tablet 1 tab PO TID Qty: 90 RF: 5 benztropine 0.5 mg tablet 0.5 mg PO BID RF: 0 trazodone 150 mg tablet 150 mg PO HS RF: 0 sertraline 50 mg tablet 50 mg PO QPM RF: 0 metoprolol succinate 25 mg tablet extended release 24 hr 25 mg PO QPM RF: 0 memantine 10 mg tablet 10 mg PO BID RF: 0 Caplyta 42 mg capsule 42 mg PO DAILY RF: 0 Referrals Referrals: Emily Parra DO [Primary Care Provider] -
[2022-03-03 12:13] LABS: Appearance Urine Clear (Clear); Bilirubin Urine Negative (Negative); Blood Urine Negative (Negative); Color Urine Yellow; Glucose Urine UA Negative (Negative); Ketones Urine Negative (Negative); Leukocyte Esterase Urine Negative (Negative); Nitrite Urine Negative (Negative); Protein Urine Negative (Negative); Specific Gravity Urine 1.015 (1.000-1.030); Urobilinogen Urine Negative (Negative); pH Urine 6.5 (4.5-7.5)
[2022-03-03 12:13] LABS: Albumin Globulin Ratio 1.2 (0.9-2); Albumin Level 3.9 gm/dl (3.4-5.0); BUN Creatinine Ratio 10.8 (10-20); Bilirubin,Total 0.6 mg/dl (0.2-1.0); Calcium 9.2 mg/dl (8.5-10.1); Creatinine Clr Calc Pharmacy 75.7 ml/min; Est GFR (African American) 80.9 ml/min; Est GFR (Non-African American) 69.8 ml/min; Globulin 3.3 gm/dl (2.5-4.0); Potassium 4.3 mmol/L (3.5-5.1); Total Protein 7.2 gm/dl (6.0-8.3)
--- NOTE | 2022-03-03 12:17 | XRay Report ---
XR chest 1V portable, XR KUB/Abdomen 1 view HISTORY: 66 years-old Male right sided pain acute atypical chest pain with acute generalized abdomin al pain COMPARISON: CT abdomen pelvis 02/18/2022, chest radiograph 06/17/2017 TECHNIQUE: AP view of the chest with KUB radiograph FINDINGS: CHEST: Cardiomegaly. Coronary arterial stent. No pneumothorax, pleural effusion, airspace consolidation or o vert pulmonary edema. Bones appear grossly intact. KUB: Cholelithiasis. Nonobstructive bowel gas pattern. The patient's known left nephrolithiasis are obscur ed by bowel gas. Pelvic basin phleboliths redemonstrated. No pneumatosis or pneumoperitoneum. Mild to moderate fecal retention. Degenerative changes of the spine, pelvis and hips. IMPRESSION: 1. Cardiomegaly without acute process of the chest. 2. Nonobstructive bowel gas pattern. 3. Cholelithiasis. 4. The patient's known left nephrolithiasis are obscured by bowel gas. ACT 112: Negative or not required by law. The above report was generated using voice recognition software. It may contain grammatical, syntax o r spelling errors. Electronically signed by: River Banuelos M.D. 03/03/2022 12:15 PM
[2022-03-03 12:18] LABS: Partial Thromboplastin Ratio 0.9; Partial Thromboplastin Time 23.9 Seconds (21.0-31.0); Prothrombin Time 11.1 Seconds (9.0-12.0)
[2022-03-03 12:45] LABS: Basophils # (auto) 0.02 K/uL (0-0.2); Basophils % (auto) 0.2 %; Eosinophils # (auto) 0.44 K/uL (0-0.5); Eosinophils % (auto) 4.5 %; Hemoglobin 13.3 g/dL (14.0-18.0); Immature Granulocytes # (auto) 0.03 K/uL (0.00-0.02); Immature Granulocytes % (auto) 0.3 %; Lymphocytes # (auto) 1.46 K/uL (1.2-3.4); Lymphocytes % (auto) 14.8 %; Mean Corpuscular Hemoglobin 26.3 pg (25-34); Mean Corpuscular Hgb Conc 32.4 g/dL (32-36); Mean Corpuscular Volume 81.2 fL (80-100); Mean Platelet Volume 8.8 fL (7.4-10.4); Monocytes # (auto) 0.82 K/uL (0.11-0.59); Monocytes % (auto) 8.3 %; Neutrophils # (auto) 7.07 K/uL (1.4-6.5); Neutrophils % (auto) 71.9 %; Platelet Count 341 K/uL (130-400); RDW Coefficient of Variation 14.4 % (11.5-14.5); RDW Standard Deviation 42.6 fL (36.4-46.3); Red Blood Count 5.05 M/uL (4.7-6.1); White Blood Count 9.84 K/uL (4.8-10.8)
[2022-03-03] MEDS ORDERED: cefOXitin 2,000 MG/60 ML BAG IV STA (13:13)
--- NOTE | 2022-03-03 13:41 | Surgery Consultation ---
Date of Consultation March 03, 2022 Assessment & Plan (1) Cholelithiasis: This is a 66y M with a PMH of hearing loss, HTN, parkinsonism, pAfib, asthma, MATTHIEU, CABG, T2DM, bipolar, schizophrenia, who presents to the [facility] ED on 03/03/22 with complaints of abdominal pain and bloating. He is a poor historian. He had an outpatient US that has revealed + gallbladder distention with sludge and a nonmobile 2cm stone in the gallbladder neck. No definitive pericholecystic fluid noted. PCP called him to come into due to US results. Of note he has been evaluated for workup his cholelithiasis in the past and at the surgical visit majority of the patient's complaints were related to presumed radiculopathy from low back pain radiating to lower abdomen and observation was elected and surgery was not scheduled. Today patient again reports lower abdominal pain and he needed some prompting to share with me he has been dealing with upper abdominal discomfort as well. On exam patient's abdomen is obese, soft, and discomfort elicited to palpation in the RUQ, RLQ, and LLQ. WBC 9.8 and LFT's are within nor mal limits. VSS. At this time it is unclear whether or not his cholelithiasis and 2cm stone is causing all of his abdominal symptoms. He does have a history of chronic back pain. We will order a HIDA scan for further workup. At this time would plan on keeping NPO with IVF and giving him IV abx. Appreciate hospitalists assistance with the patient. Would hold his eliquis in anticipation of potential cholecystectomy this admission if the HIDA is positive. He will need medical clearance. He also has a history of CABG and afib on eliquis and will leave it up to medicine should he need further cardiac testing. Supervising Physician Co-Signing Physician Notes I personally saw and evaluated the patient with Radha Peña PA-C and agree with assessment and plan. 66-year-old male with cholelithiasis and possible cholecystitis He is being admitted by the medical service Hold his Eliquis, he states he has not taken this since Tuesday Keep n.p.o., give IV antibiotics Will obtain HIDA scan Further recommendations pending HIDA scan results History of Present Illness History of Present Illness This is a 66y M with a PMH of hearing loss, HTN, parkinsonism, pAfib, asthma, MATTHIEU, CABG, T2DM, bipolar, schizophrenia, who presents to the [facility] ED on 03/03/22 with complaints of abdominal pain and bloating. He is a poor historian. It is noted that the patient had an outpatient US performed due to history of abdominal pain and noting the results he was called into the ER for further evaluation. Patient tells me regardless he was planning on coming in anyway due to abdominal bloating and pain that kept him up all night. The US read as + gallbladder distention with sludge and a nonmobile 2cm stone in the gallbladder neck. No definitive pericholecystic fluid noted. When asked about his pain, the patient points to his RLQ and LLQ, saying it has been present since he was very young. I prompted him asking if he also has any upper abdominal pain and he says yes pointing in the epigastric and RUQ regions. He states the upper abdominal pain has been present for a few months now, and that his PCP ordered the US for evaluation. Looking back in his records patient was noted to have a RUQ US back in 2019 similarly revealing a 2cm gallstone without evidence of acute cholecystitis. He was seen by one of our surgeons at that time and due to his main complaints being back pain and lower abdominal pain surgery was delayed at that time for workup of that. It was also encouraged that if plan was to proceed he should undergo PCP and cardiology clearances. Patient tells me he does notice some worsening of pain with eating. He denies any fevers/chills, nausea/vomiting. No chest pain. Does have some SOB he says is at baseline related to his MATTHIEU. He has had nothing to eat today, but says he is feeling hungry. Last BM 2 days ago. He is also on eliquis for afib and he tells me he did not take it yesterday or today. Denies previous abdominal surgery. Allergies Allergy/AdvReac Type Severity Reaction Status Date / Time bee venom protein (honey bee) Allergy Severe Anaphylaxis Verified 03/03/22 12:05 wool AdvReac Intermediate Rash Verified 03/03/22 12:05 Home Medications Medication Instructions Recorded Confirmed Type benztropine 0.5 mg tablet 0.5 mg PO BID 08/29/19 03/03/22 History hydroxyzine HCl 50 mg tablet 50 mg PO BID #60 tab 03/14/20 03/03/22 Rx aripiprazole 20 mg tablet 30 mg PO HS tab 07/03/20 03/03/22 History cholecalciferol (vitamin D3) 50 2,000 unit PO QAM #90 cap 09/24/21 03/03/22 Rx mcg (2,000 unit) capsule diclofenac sodium 1 % topical gel 4 g TOP BID PRN #100 gm 12/03/21 03/03/22 Rx sertraline 100 mg tablet 100 mg PO PM #90 tab 12/14/21 03/03/22 Rx famotidine 20 mg tablet (Pepcid) 20 mg PO DAILY #30 tab 12/25/21 03/03/22 Rx apixaban 5 mg tablet (Eliquis) 5 mg PO BID #60 tab 01/06/22 03/03/22 Rx celecoxib 100 mg capsule (Celebrex) 100 mg PO BID #180 cap 01/06/22 03/03/22 Rx atorvastatin 20 mg tablet 20 mg PO HS #30 tab 01/07/22 03/03/22 Rx acetaminophen 650 mg 650 mg PO Q8H PRN #90 tab 02/05/22 03/03/22 Rx tablet,extended release (Tylenol Arthritis Pain) carbidopa 25 mg-levodopa 100 mg 1 tab PO TID #90 tab 02/05/22 03/03/22 Rx tablet metformin 500 mg tablet,extended 1,000 mg PO BID #360 tab 02/08/22 03/03/22 Rx release 24 hr lumateperone 42 mg capsule 42 mg PO DAILY 03/03/22 03/03/22 History (Caplyta) memantine 10 mg tablet 10 mg PO BID 03/03/22 03/03/22 History metoprolol succinate 25 mg 25 mg PO QPM 03/03/22 03/03/22 History tablet,extended release 24 hr sertraline 50 mg tablet 50 mg PO QPM 03/03/22 03/03/22 History trazodone 150 mg tablet 150 mg PO HS 03/03/22 03/03/22 History Patient History Medical History Arthritis Asthma NO LONGER USES INH> OK WITHOUT IT CAD (coronary artery disease) Cholelithiasis without cholecystitis NO SURGERY YET Chronic sinusitis Chronic sinusitis Depression, major Gout History of cerebellar stroke APPROX 8 YRS AGO> MEMORY ISSUES> OVERALL WEAKNESS> FOLLOWS DR. THURSTON Hyperlipidemia Hypertension Hypertension Intellectual disability Intracardiac thrombosis PT UNAWARE OF DETAILS Mild cognitive impairment Myocardial infarct 3 TOTAL> LAST ONE APPROX 5 YRS AGO > [facility]> DOESN'T FOLLOW CARDIO> JUST RICOTTA Parkinsonism Paroxysmal atrial fibrillation NO PACER> ON METOPROLOL Schizophrenia, paranoid, chronic Schmorl's nodes of lumbar region Sleep apnea Sleep apnea NO CPAP Tremor Type 2 diabetes mellitus NIDDM Vitamin D deficiency Surgical History History of tooth extraction Hx of colonoscopy S/P CABG (coronary artery bypass graft) (2010) x3: approximately 5 years ago. > [facility] Family History Father Cardiac disorder Hypertension Myocardial infarction Heart disease Mother Dementia Diabetes Sister Myocardial infarction Brother Myocardial infarction Hypertension Diabetes Breast cancer Other Allergies FHx: dementia Denies family history of Ovarian cancer Prostate cancer Hearing loss No family history of adverse response to anesthesia No family history of bleeding disorder Colorectal cancer Cancer Stroke Asthma Social History Smoking Status: Never smoker Second Hand Exposure: Yes; Hx Alcohol Use: No Hx Substance Use: No Preferred Language: Romanian Communication Ability: Effective Visual Impairment: No Limitations Hearing Ability: Hard of Hearing Shipsmith Required: No Beliefs That Will Affect Care: None marital status: / Current Living Situation: Alone Current Living Situation Comment: Lives alone in own apartment current occupational status: disabled Other Information That Helps Us Care for You: No Feels Safe at Home: Yes Safety Concerns: Feels Safe At This Time Childhood Exposure to Second-Hand Smoke: No Diet Comment: regular caffeine: Yes during the past year weight has: remained stable Dental Care, Regularly: Yes Physical Activity Frequency: Does not Exercise Seatbelt Use: always Sunscreen Use: No Assistive Devices: Cane and Glasses Review of Systems Constitutional: + fatigue; no fever and no chills Respiratory: + dyspnea (reports it is at baseline due to his sleep apnea) Cardiovascular: no chest pain Gastrointestinal: + abdominal pain and + bloating; no nausea and no vomiting Physical Exam Physical Exam: awake, no acute distress Respiratory: normal respiratory effort Gastrointestinal (Abdomen): Inspection/Auscultation: + abdomen distended Percussion/Palpation: + abdomen tender (ttp in RUQ/RLQ and some discomfort elicited in LLQ) and abdomen soft Results & Data ([facility]) Vital Signs (Past 12 Hours) Vital Signs Temp Pulse Pulse Resp BP BP Pulse Ox 03/03/22 12:37 82 18 144/96 H 94 03/03/22 11:10 36.4 C L 88 20 141/96 H 97 Diagnostic Findings US gallbladder HISTORY: 66 years-old Male K80.20 - Calculus of gallbladder without cholecystitis wi... COMPARISON: CT abdomen and pelvis 02/18/2022 TECHNIQUE: Multiple real-time sonographic images of the abdominal right upper quadrant were obtained assessing grayscale appearance and color flow FINDINGS: Limited study secondary to patient body habitus. The pancreas is suboptimally visualized secondary to obscuring bowel gas. Increased echogenicity of the hepatic parenchyma without hepatic mass. The gallbladder is distended measuring 13 cm in length. There is a 2 cm nonmobile gallstone within the gallbladder neck. Small volume of associated sludge. The gallbladder wall measures within the upper limits of normal at 3 mm. No pericholecystic fluid. The sonographic Martinez sign was reported as negative. The common bile duct measures the upper limits of normal at 7 mm. No intrahepatic biliary ductal dilation. Mildly complex 7.2 cm cyst of the right kidney redemonstrated with thickened mclain and partially calcified septations. No right-sided hydronephrosis identified. IMPRESSION: 1. Gallbladder distention with sludge and nonmobile stone within the gallbladder neck. The gallbladder wall measures within the upper limits of normal, however there is no definite pericholecystic fluid and the sonographic Martinez sign was reported as negative. Findings could be correlated with nuclear medicine hepatobiliary scan to exclude acute cholecystitis. 2. The common bile duct measures within the upper limits of normal. 3. Hepatic steatosis. ACT 112: Negative or not required by law. The above report was generated using voice recognition software. It may contain grammatical, syntax or spelling errors. Electronically signed by: River Banuelos M.D. 03/03/2022 10:33 AM PG Care Time/CCT Total # of Minutes Spent Total Time Spent with Patient: Total time spent is greater than 50% in coordination of care (as documented) at patient's floor/unit and/or counseling patient: Coding Level of Care Code 73720 Inpt Consult Level 3 Diagnoses Cholelithiasis K80.20
--- NOTE | 2022-03-03 14:27 | History & Physical Report ---
Date of Service March 03, 2022 Assessment & Plan (1) Cholelithiasis: Plan: Please patient in nonmonitored observation Seen by general surgery, requesting a HIDA scan which will be ordered Per their recommendations, will keep n.p.o. on IV fluids. Also recommending initiation of antibiotics. Will start Zosyn 3.375g q6h I will order low-dose Dilaudid for pain although patient appears mostly comfortable at this time. Will need to hold Eliquis for possible OR intervention. Hold any anticoagulation for now We will also ask cardiology to evaluate for preop clearance, follows with [facility] (2) Paroxysmal atrial fibrillation: Plan: Patient appears to be in rate controlled atrial fibrillation on the monitor at the time of evaluation Will hold Eliquis as noted If patient is nt planned for OR schedule by tomorrow, consider restarting Eliquis versus initiation of treatment dose Lovenox Continue Toprol-XL 25 mg daily with sips of water (3) CAD (coronary artery disease): Plan: Continue statin and beta-lin as noted (4) Hypertension: Plan: Continue metoprolol as ordered (5) Sleep apnea: Plan: Per documentation. Patient has apparently refused any further work-up of this on multiple occasions with his primary care provider. Continue to monitor. (6) Type 2 diabetes mellitus: Plan: Will hold metformin. Patient is on no other hypoglycemics Sliding scale insulin every 6 hours while NPO (7) Hyperlipidemia: Plan: Continue atorvastatin (8) Schizophrenia, paranoid, chronic: Plan: Continue multiple medications as noted (9) Parkinsonism: Plan: Continue Sinemet and benztropine as ordered History of Present Illness Chief Complaint: Abdominal pain Primary Care Provider: Emily Parra, This is a 66-year-old male with past medical history of PAF on Eliquis, CAD status post CABG, chronic lower back pain the presented to the hospital today with abdominal pain after seeing his primary care provider. Unfortunately, the patient is a poor historian. Per patient, he has been having pain in his abdomen for several months. This is mostly right lower quadrant. Associated with some constipation. Is associated with some nausea and vomiting. It does appear that he was worked up for this in the past, and I do see imaging from 2019 that shows a 2 cm gallstone. The patient tells me he had seen his primary care provider more recently and had a repeat right upper quadrant ultrasound. There is one in our system from today that shows a 2 cm stone with some minimal pericholecystic stranding. This follows a CT scan from 02/18/2022 that shows a gallbladder stone as seen in the neck of the gallbladder. Patient was ultimately told today by his primary care provider to present to the emergency room for further work-up. At time of evaluation, the patient appears to be comfortable. He does tell me he has some uncomfortable abdomen. Patient is already been seen by general surgery, there is consideration to cholecystectomy but they are requesting a HIDA scan be performed. Patient will be placed in observation for further work- up. Allergies Allergy/AdvReac Type Severity Reaction Status Date / Time bee venom protein (honey bee) Allergy Severe Anaphylaxis Verified 03/03/22 12:05 wool AdvReac Intermediate Rash Verified 03/03/22 12:05 Home Medications Medication Instructions Recorded Confirmed Type benztropine 0.5 mg tablet 0.5 mg PO BID 08/29/19 03/03/22 History hydroxyzine HCl 50 mg tablet 50 mg PO BID #60 tab 03/14/20 03/03/22 Rx aripiprazole 20 mg tablet 30 mg PO HS tab 07/03/20 03/03/22 History cholecalciferol (vitamin D3) 50 2,000 unit PO QAM #90 cap 09/24/21 03/03/22 Rx mcg (2,000 unit) capsule diclofenac sodium 1 % topical gel 4 g TOP BID PRN #100 gm 12/03/21 03/03/22 Rx sertraline 100 mg tablet 100 mg PO PM #90 tab 12/14/21 03/03/22 Rx famotidine 20 mg tablet (Pepcid) 20 mg PO DAILY #30 tab 12/25/21 03/03/22 Rx apixaban 5 mg tablet (Eliquis) 5 mg PO BID #60 tab 01/06/22 03/03/22 Rx celecoxib 100 mg capsule (Celebrex) 100 mg PO BID #180 cap 01/06/22 03/03/22 Rx atorvastatin 20 mg tablet 20 mg PO HS #30 tab 01/07/22 03/03/22 Rx acetaminophen 650 mg 650 mg PO Q8H PRN #90 tab 02/05/22 03/03/22 Rx tablet,extended release (Tylenol Arthritis Pain) carbidopa 25 mg-levodopa 100 mg 1 tab PO TID #90 tab 02/05/22 03/03/22 Rx tablet metformin 500 mg tablet,extended 1,000 mg PO BID #360 tab 02/08/22 03/03/22 Rx release 24 hr lumateperone 42 mg capsule 42 mg PO DAILY 03/03/22 03/03/22 History (Caplyta) memantine 10 mg tablet 10 mg PO BID 03/03/22 03/03/22 History metoprolol succinate 25 mg 25 mg PO QPM 03/03/22 03/03/22 History tablet,extended release 24 hr sertraline 50 mg tablet 50 mg PO QPM 03/03/22 03/03/22 History trazodone 150 mg tablet 150 mg PO HS 03/03/22 03/03/22 History Past Med/Surg History Medical History Arthritis Asthma NO LONGER USES INH> OK WITHOUT IT CAD (coronary artery disease) Cholelithiasis without cholecystitis NO SURGERY YET Chronic sinusitis Chronic sinusitis Depression, major Gout History of cerebellar stroke APPROX 8 YRS AGO> MEMORY ISSUES> OVERALL WEAKNESS> FOLLOWS DR. THURSTON Hyperlipidemia Hypertension Hypertension Intellectual disability Intracardiac thrombosis PT UNAWARE OF DETAILS Mild cognitive impairment Myocardial infarct 3 TOTAL> LAST ONE APPROX 5 YRS AGO > [facility]> DOESN'T FOLLOW CARDIO> JUST RICOTTA Parkinsonism Paroxysmal atrial fibrillation NO PACER> ON METOPROLOL Schizophrenia, paranoid, chronic Schmorl's nodes of lumbar region Sleep apnea Sleep apnea NO CPAP Tremor Type 2 diabetes mellitus NIDDM Vitamin D deficiency Surgical History History of tooth extraction Hx of colonoscopy S/P CABG (coronary artery bypass graft) (2010) x3: approximately 5 years ago. > [facility] Family History Father Cardiac disorder Hypertension Myocardial infarction Heart disease Mother Dementia Diabetes Sister Myocardial infarction Brother Myocardial infarction Hypertension Diabetes Breast cancer Other Allergies FHx: dementia Denies family history of Ovarian cancer Prostate cancer Hearing loss No family history of adverse response to anesthesia No family history of bleeding disorder Colorectal cancer Cancer Stroke Asthma Social History Smoking Status: Never smoker Second Hand Exposure: Yes; Hx Alcohol Use: No Hx Substance Use: No Preferred Language: Sudanese Communication Ability: Effective Visual Impairment: No Limitations Hearing Ability: Hard of Hearing 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 Beliefs That Will Affect Care: None marital status: / Current Living Situation: Alone Current Living Situation Comment: Lives alone in own apartment current occupational status: disabled Feels Safe at Home: Yes Childhood Exposure to Second-Hand Smoke: No Diet Comment: regular caffeine: Yes during the past year weight has: remained stable Dental Care, Regularly: Yes Physical Activity Frequency: Does not Exercise Seatbelt Use: always Sunscreen Use: No Assistive Devices: Cane Review of Systems Constitutional: no fever, no chills, no weakness, no weight loss and no weight gain Eyes: as per Subjective / HPI Respiratory: no cough, no chest congestion, no dyspnea and no dyspnea on exertion Cardiovascular: no chest pain, no orthopnea, no palpitations, no lightheadedness and no edema Gastrointestinal: + abdominal pain, + nausea, + change in stools and + constipation; no vomiting and no diarrhea/loose stools Musculoskeletal: + back pain; no neck pain, no joint pain, no stiffness and no myalgia Integumentary: no rash Neurologic: no gait abnormality, no unsteadiness, no falls and no generalized weakness Psychiatric: as per Subjective / HPI Physical Exam Constitutional: cooperative; no acute distress Neck: trachea midline, no thyromegaly Respiratory: normal respiratory effort Auscultation: lungs clear to auscultation bilaterally; no crackles, no rales, no rhonchi and no wheezes Cardiovascular: Rate/Rhythm: regular rate and + irregularly irregular Heart Sounds: normal S1 and normal S2 Chest (Breasts): Additional Comments: obese/protuberant abd Gastrointestinal (Abdomen): Percussion/Palpation: + abdomen tender, abdomen soft and normal to percussion; no guarding, abdomen not rigid, no hepatosplenomegaly and no abdominal mass Skin: no rashes, warm and dry Results & Data Results & Data ([facility]) Vital Signs (Past 12 Hours) Vital Signs Temp Pulse Pulse Resp BP BP Pulse Ox 03/03/22 14:00 78 18 140/94 96 03/03/22 12:37 82 18 144/96 H 94 03/03/22 11:10 36.4 C L 88 20 141/96 H 97 PG Care Time/CCT Total # of Minutes Spent Total Time Spent with Patient: Total time spent is greater than 50% in coordination of care (as documented) at patient's floor/unit and/or counseling patient: Coding Level of Care Code INT OBSERVATION CARE 70M LVL 3 Diagnoses Cholelithiasis K80.20 Hypertension I10 Sleep apnea G47.30 Paroxysmal atrial fibrillation I48.0 CAD (coronary artery disease) I25.10 Type 2 diabetes mellitus E11.9 Hyperlipidemia E78.5 Schizophrenia, paranoid, chronic F20.0 Parkinsonism G20
[2022-03-03] MEDS ORDERED: DEXTROSE 50% 50 ML SYRINGE IV PRN (17:23)
[2022-03-03] MEDS ORDERED: CARBOHYDRATES FOR HYPOGLYCEMIA PO PRN (17:23)
[2022-03-03] MEDS ORDERED: GLUCOSE 40% GEL 15 GM TUBE PO PRN (17:23)
[2022-03-03] MEDS ORDERED: GLUCAGON FOR INJ 1 MG VIAL SQ PRN (17:23)
[2022-03-03] MEDS ORDERED: GLUCOSE 10 TABS/TUBE PO PRN (17:23)
[2022-03-03] MEDS ORDERED: HYDROmorphone INJ 0.5 MG/0.5 ML SYR IV PRN (17:23)
[2022-03-03] MEDS ORDERED: ONDANSETRON INJ 2 MG/ML 2 ML VIAL IV PRN (17:23)
[2022-03-03] MEDS ORDERED: PIPERACILLIN/TAZOBACTAM 3.375 GM in DEXTROSE 5% 100 ML IV STA (17:42)
[2022-03-03] MEDS ORDERED: MoRPHine SULFATE 2 MG/ML CARP IV STA (18:42)
--- NOTE | 2022-03-03 20:37 | Nuclear Medicine Report ---
NUCLEAR HEPATOBILIARY SCAN CLINICAL HISTORY: Right upper quadrant abdominal pain. COMPARISON STUDY: Abdominal CT dated 02/18/2022. Abdominal ultrasound dated 03/03/2022. TECHNIQUE: Dynamic images of the liver and anterior abdomen were obtained every 5 minutes for a total of 45 minutes following the IV administration of 5.0 mCi of technetium 99m Mebrofenin, with an addit ional images acquired at 60 minutes and 120 minutes. The gallbladder was not visualized by 120 minute s. 2 mg of IV morphine was then administered with an additional image acquired 30 minutes following m orphine administration. FINDINGS: The hepatobiliary scan shows prompt and homogeneous hepatic uptake. There is delayed activi ty within the intra and extra hepatic biliary tree. This was not visualized until 60 minutes. Bowel a ctivity is also seen at 60 minutes. There is no visualization of the gallbladder at 2 hours following tracer administration. The gallbladder was still not visualized following morphine administration. IMPRESSION: Scintigraphic findings are consistent with acute cholecystitis. ACT 112: Negative or not required by law. Electronically signed by: Pancho Kelly M.D. 03/03/2022 8:35 PM
[2022-03-03] MEDS: PIPERACILLIN/TAZOBACTAM 3.375 GM in DEXTROSE 5% 100 ML IV SCH ×2 (21:00→23:23)
[2022-03-03] MEDS: INSULIN ASPART PER UNIT SC SCH ×2 (21:00→21:10)
[2022-03-03] MEDS: SODIUM CHLORIDE 0.9% 1000ML 1,000 ML IV SCH (21:00)
[2022-03-03] MEDS: MEMANTINE HCL 10 MG TAB PO SCH (21:01)
[2022-03-03] MEDS: BENZTROPINE MESYLATE 0.5 MG TAB PO SCH (21:01)
[2022-03-03] MEDS: ATORVASTATIN 20 MG TAB PO SCH (21:01)
[2022-03-03] MEDS: SERTRALINE HCL 100 MG TABLET PO SCH (21:01)
[2022-03-03] MEDS: CARBIDOPA/LEVODOPA 25/100MG TAB PO SCH (21:01)
[2022-03-03] MEDS: ARIPiprazole 15 MG TAB PO SCH (21:01)
[2022-03-03] MEDS: METOPROLOL SUCC 25MG EXT REL TAB PO SCH (21:01)
[2022-03-03] MEDS: SERTRALINE HCL 50 MG TABLET PO SCH (21:01)
[2022-03-03] MEDS: traZODone HCL 50 MG TAB PO SCH (21:01)
[2022-03-03] MEDS: hydrOXYzine HCl 25 MG TAB PO SCH (21:01)
--- NOTE | 2022-03-03 21:16 | Communication Note ---
Date of Service: March 03, 2022 This patient underwent a HIDA scan earlier this evening which revealed evidence consistent with acute cholecystitis. I discussed these results with Dr. Rogers who notes he will tentatively plan on performing cholecystectomy on 03/04/2022. I contacted the OR staff and scheduled the surgery. I also reviewed the patient's chart and he is n.p.o., he is receiving intravenous fluids, and he is receiving antibiotics in form of Zosyn. Patient does take 5 mg twice daily of Eliquis. I visited with the patient at bedside and he notes that he did not take his Eliquis today or yesterday. The patient notes that his most recent dose was on 03/01/2022. I did discuss with Dr. Gao the potential need for prothrombin complex concentrates perioperatively. She notes that since the patient's most recent dose was on 03/01/2022, and that he has essentially normal renal function prothrombin complex concentrates will not be needed. She did note that if Dr. Rogers has further concerns about perioperative bleeding and wishes to discuss this she can be reached tomorrow before the patient's surgical time.
[2022-03-04] MEDS ORDERED: Nursing to Pharmacy Communication SCH ×2 (07:15→17:00)
[2022-03-04] MEDS: PIPERACILLIN/TAZOBACTAM 3.375 GM in DEXTROSE 5% 100 ML IV SCH ×2 (08:15→16:55)
[2022-03-04] MEDS: BENZTROPINE MESYLATE 0.5 MG TAB PO SCH ×2 (08:20→19:31)
[2022-03-04] MEDS: FAMOTIDINE 20 MG TAB PO SCH (08:21)
[2022-03-04] MEDS: MEMANTINE HCL 10 MG TAB PO SCH ×2 (08:21→19:32)
[2022-03-04] MEDS: CARBIDOPA/LEVODOPA 25/100MG TAB PO SCH ×3 (08:21→19:33)
[2022-03-04] MEDS: hydrOXYzine HCl 25 MG TAB PO SCH ×2 (08:21→19:31)
[2022-03-04 08:47] LABS: Basophils # (auto) 0.02 K/uL (0-0.2); Basophils % (auto) 0.2 %; Eosinophils # (auto) 0.41 K/uL (0-0.5); Eosinophils % (auto) 4.4 %; Hematocrit (blood only) 39.4 % (42-52); Hemoglobin 12.9 g/dL (14.0-18.0); Immature Granulocytes # (auto) 0.02 K/uL (0.00-0.02); Immature Granulocytes % (auto) 0.2 %; Lymphocytes # (auto) 1.28 K/uL (1.2-3.4); Lymphocytes % (auto) 13.7 %; Mean Corpuscular Hemoglobin 26.3 pg (25-34); Mean Corpuscular Hgb Conc 32.7 g/dL (32-36); Mean Corpuscular Volume 80.2 fL (80-100); Mean Platelet Volume 9.1 fL (7.4-10.4); Monocytes # (auto) 0.88 K/uL (0.11-0.59); Monocytes % (auto) 9.5 %; Platelet Count 342 K/uL (130-400); RDW Coefficient of Variation 14.4 % (11.5-14.5); RDW Standard Deviation 42.1 fL (36.4-46.3); Red Blood Count 4.91 M/uL (4.7-6.1); White Blood Count 9.31 K/uL (4.8-10.8)
[2022-03-04] MEDS: INSULIN ASPART PER UNIT SC SCH ×3 (09:05→21:28)
[2022-03-04 09:13] LABS: BUN Creatinine Ratio 12.9 (10-20); Calcium 8.7 mg/dl (8.5-10.1); Est GFR (African American) 90.7 ml/min; Est GFR (Non-African American) 78.2 ml/min
[2022-03-04 09:39] LABS: Estimated Average Glucose 151 mg/dl; Hemoglobin A1C 6.9 % (4.5-5.6)
--- NOTE | 2022-03-04 10:03 | Cardiology Consultation ---
Date of Consultation March 04, 2022 Assessment & Plan (1) Cholelithiasis: (2) Paroxysmal atrial fibrillation: (3) CAD (coronary artery disease): (4) S/P CABG (coronary artery bypass graft): (5) Hyperlipidemia: (6) Hypertension: 1. Preoperative cardiovascular evaluation: He denies anginal symptoms and has no evidence of myocardial ischemia. ECG yesterday showed no acute ischemic changes. He has no evidence of CHF or significant valvular abnormality. Patient can therefore proceed with necessary gallbladder surgery without any additional cardiovascular testing or intervention. Recommend close monitoring and avoidance of hypotension, hypertension, tachycardia, hypoxia, and significant anemia throughout the perioperative period to reduce myocardial oxygen demand and meet myocardial oxygen delivery. 2. Coronary artery disease s/p CABG x3 in 2010: No angina. Continue beta lin and statin therapy. He is on Eliquis given his history of paroxysmal atrial fibrillation. 3. Ischemic cardiomyopathy: Mildly reduced LV systolic function by most recent echo in November 2018. He does not appear hypervolemic on exam. Continue metoprolol succinate. Can consider initiating an MATEO or an ARB as an outpatient. 4. Paroxysmal atrial fibrillation: Sinus rhythm by ECG yesterday. Regular on exa m today. Appears asymptomatic. Continue beta lin therapy for rate control. Restart anticoagulation once safe from a bleeding standpoint. 5. Hypertension: BP has been reasonably well controlled. 6. Hypercholesterolemia: continue statin therapy. Thank you for allowing us to see this patient in consultation. Will arrange routine cardiology follow-up as an outpatient. History of Present Illness Reason for Consultation: Preoperative cardiovascular evaluation Requesting Physician: Dr. Giles History of Present Illness Mr. May is a 66-year-old male with a past medical history significant for coronary artery disease s/p CABG x3 in 2010, ischemic cardiomyopathy, paroxysmal atrial fibrillation, hypertension, hypercholesterolemia, type 2 diabetes, sleep apnea, paranoid schizophrenia, parkinsonism, COPD/asthma, and chronic low back pain who was hospitalized yesterday with acute cholecystitis. He is scheduled to have cholecystectomy today with Dr. Rogers. This consultation was requested for preoperative cardiovascular evaluation. The patient has followed with Dr. Tsai as an outpatient for his cardiovascular care, but he has not been seen in clinic by him since December 2018. His most recent echocardiogram in November 2018 demonstrated normal LV size with mildly reduced LV systolic function with an estimated ejection fraction of 40-45%. There was apical hypokinesis. No significant valvular abnormalities were noted. He has been having difficulty with abdominal discomfort. He underwent abdominal ultrasound, which showed gallbladder distention with sludge and nonmobile stone within the gallbladder neck. Subsequent nuclear hepatobiliary scan showed findings consistent with cholecystitis. The patient is a rather poor historian. He reports pain in various locations, including the right side of his abdomen, epigastric area, low back radiating to his legs, and bilateral shoulders. The shoulder discomfort occurs when he is moving his arms. He has not noted any pain in his chest. He initially said that he was short of breath during the consultation, but then he later said that he was not having any shortness of breath. He states that he is not very active at home due to his back and leg pain. He states that he has someone come and do his housework. He uses a motorized scooter when he is outside of the home. He does state that he can ambulate up and down stairs. He does not appear to have any chest discomfort or shortness of breath with exertion. He has not noted any lower extremity edema. He states that he his heart can race when he is nervous, but he denies any significant palpitations otherwise. He denies lightheadedness. He states that he can have blood with bowel movements. He denies hematuria. Family history: Father of a HI at 70. Mother of "old age" at 91. Social history: He is a and lives alone. No tobacco or alcohol. Allergies Allergy/AdvReac Type Severity Reaction Status Date / Time bee venom protein (honey bee) Allergy Severe Anaphylaxis Verified 03/03/22 12:05 wool AdvReac Intermediate Rash Verified 03/03/22 12:05 Home Medications Medication Instructions Recorded Confirmed Type benztropine 0.5 mg tablet 0.5 mg PO BID 08/29/19 03/03/22 History hydroxyzine HCl 50 mg tablet 50 mg PO BID #60 tab 03/14/20 03/03/22 Rx aripiprazole 20 mg tablet 30 mg PO HS tab 07/03/20 03/03/22 History cholecalciferol (vitamin D3) 50 2,000 unit PO QAM #90 cap 09/24/21 03/03/22 Rx mcg (2,000 unit) capsule diclofenac sodium 1 % topical gel 4 g TOP BID PRN #100 gm 12/03/21 03/03/22 Rx sertraline 100 mg tablet 100 mg PO PM #90 tab 12/14/21 03/03/22 Rx famotidine 20 mg tablet (Pepcid) 20 mg PO DAILY #30 tab 12/25/21 03/03/22 Rx apixaban 5 mg tablet (Eliquis) 5 mg PO BID #60 tab 01/06/22 03/03/22 Rx celecoxib 100 mg capsule (Celebrex) 100 mg PO BID #180 cap 01/06/22 03/03/22 Rx atorvastatin 20 mg tablet 20 mg PO HS #30 tab 01/07/22 03/03/22 Rx acetaminophen 650 mg 650 mg PO Q8H PRN #90 tab 02/05/22 03/03/22 Rx tablet,extended release (Tylenol Arthritis Pain) carbidopa 25 mg-levodopa 100 mg 1 tab PO TID #90 tab 02/05/22 03/03/22 Rx tablet metformin 500 mg tablet,extended 1,000 mg PO BID #360 tab 02/08/22 03/03/22 Rx release 24 hr lumateperone 42 mg capsule 42 mg PO DAILY 03/03/22 03/03/22 History (Caplyta) memantine 10 mg tablet 10 mg PO BID 03/03/22 03/03/22 History metoprolol succinate 25 mg 25 mg PO QPM 03/03/22 03/03/22 History tablet,extended release 24 hr sertraline 50 mg tablet 50 mg PO QPM 03/03/22 03/03/22 History trazodone 150 mg tablet 150 mg PO HS 03/03/22 03/03/22 History Patient History Medical History Arthritis Asthma NO LONGER USES INH> OK WITHOUT IT CAD (coronary artery disease) Cholelithiasis without cholecystitis NO SURGERY YET Chronic sinusitis Chronic sinusitis Depression, major Gout History of cerebellar stroke APPROX 8 YRS AGO> MEMORY ISSUES> OVERALL WEAKNESS> FOLLOWS DR. THURSTON Hyperlipidemia Hypertension Hypertension Intellectual disability Intracardiac thrombosis PT UNAWARE OF DETAILS Mild cognitive impairment Myocardial infarct 3 TOTAL> LAST ONE APPROX 5 YRS AGO > [facility]> DOESN'T FOLLOW CARDIO> JUST RICOTTA Parkinsonism Paroxysmal atrial fibrillation NO PACER> ON METOPROLOL Schizophrenia, paranoid, chronic Schmorl's nodes of lumbar region Sleep apnea Sleep apnea NO CPAP Tremor Type 2 diabetes mellitus NIDDM Vitamin D deficiency Surgical History History of tooth extraction Hx of colonoscopy S/P CABG (coronary artery bypass graft) (2010) x3: approximately 5 years ago. > [facility] Family History Father Cardiac disorder Hypertension Myocardial infarction Heart disease Mother Dementia Diabetes Sister Myocardial infarction Brother Myocardial infarction Hypertension Diabetes Breast cancer Other Allergies FHx: dementia Denies family history of Ovarian cancer Prostate cancer Hearing loss No family history of adverse response to anesthesia No family history of bleeding disorder Colorectal cancer Cancer Stroke Asthma Social History Smoking Status: Never smoker Second Hand Exposure: Yes; Hx Alcohol Use: No Hx Substance Use: No Preferred Language: Danish Communication Ability: Effective Visual Impairment: No Limitations Hearing Ability: Hard of Hearing Senior Procurement Specialist Required: No Beliefs That Will Affect Care: None marital status: / Current Living Situation: Alone Current Living Situation Comment: Lives alone in own apartment current occupational status: disabled Other Information That Helps Us Care for You: No Feels Safe at Home: Yes Safety Concerns: Feels Safe At This Time Childhood Exposure to Second-Hand Smoke: No Diet Comment: regular caffeine: Yes during the past year weight has: remained stable Dental Care, Regularly: Yes Physical Activity Frequency: Does not Exercise Seatbelt Use: always Sunscreen Use: No Assistive Devices: Cane and Glasses Review of Systems Review of Systems: All systems reviewed & are unremarkable except as noted in Subjective Physical Exam Physical Exam: Constitutional: Alert, oriented, in no acute distress HEENT: Head is atraumatic and normocephalic. EOMs intact. Sclera non-icteric. Face is symmetric. No perioral cyanosis. Mucous membranes moist Neck: No appreciable JVD Pulmonary: Normal respiratory effort, clear to auscultation throughout Cardiac: Regular rate and rhythm, normal S1 and S2, no gallops, no rubs, no murmurs Extremities: No edema. No clubbing or cyanosis. 2+ radial pulses Abdomen: Normal bowel sounds, soft, +right-sided tenderness Skin: Normal skin color, turgor, and pigmentation. No rash or skin lesions Neurological: Oriented to person, place, and time Results & Data ([facility]) Vital Signs (Past 12 Hours) Vital Signs Temp Pulse Resp BP Pulse Ox 03/04/22 07:30 97.5 F L 77 20 132/80 94 Laboratory Results Laboratory Results WBC 9.31 K/uL (4.8-10.8) 03/04/22 07:45 RBC 4.91 M/uL (4.7-6.1) 03/04/22 07:45 Hgb 12.9 g/dL (14.0-18.0) L 03/04/22 07:45 Hct 39.4 % (42-52) L 03/04/22 07:45 MCV 80.2 fL (80-100) 03/04/22 07:45 MCH 26.3 pg (25-34) 03/04/22 07:45 MCHC 32.7 g/dL (32-36) 03/04/22 07:45 RDW Std Deviation 42.1 fL (36.4-46.3) 03/04/22 07:45 RDW Coeff of Carmella 14.4 % (11.5-14.5) 03/04/22 07:45 Plt Count 342 K/uL (130-400) 03/04/22 07:45 MPV 9.1 fL (7.4-10.4) 03/04/22 07:45 Immature Gran % (Auto) 0.2 % 03/04/22 07:45 Neut % (Auto) 72.0 % 03/04/22 07:45 Lymph % (Auto) 13.7 % 03/04/22 07:45 [place] % (Auto) 9.5 % 03/04/22 07:45 Eos % (Auto) 4.4 % 03/04/22 07:45 Baso % (Auto) 0.2 % 03/04/22 07:45 Neut # (Auto) 6.70 K/uL (1.4-6.5) H 03/04/22 07:45 Lymph # (Auto) 1.28 K/uL (1.2-3.4) 03/04/22 07:45 [place] # (Auto) 0.88 K/uL (0.11-0.59) H 03/04/22 07:45 Eos # (Auto) 0.41 K/uL (0-0.5) 03/04/22 07:45 Baso # (Auto) 0.02 K/uL (0-0.2) 03/04/22 07:45 Immature Gran # (Auto) 0.02 K/uL (0.00-0.02) 03/04/22 07:45 Absolute Nucleated RBC Cancelled 03/03/22 11:30 Nucleated RBC % (auto) Cancelled 03/03/22 11:30 Neutrophils % (Manual) Cancelled 03/03/22 11:30 Band Neutrophils % Cancelled 03/03/22 11:30 Lymphocytes % (Manual) Cancelled 03/03/22 11:30 Prolymphocyte % Cancelled 03/03/22 11:30 Reactive Lymphs % (Man) Cancelled 03/03/22 11:30 Monocytes % (Manual) Cancelled 03/03/22 11:30 Eosinophils % (Manual) Cancelled 03/03/22 11:30 Basophils % (Manual) Cancelled 03/03/22 11:30 Metamyelocytes % (Man) Cancelled 03/03/22 11:30 Myelocytes % (Man) Cancelled 03/03/22 11:30 Promyelocytes % (Man) Cancelled 03/03/22 11:30 Blast Cells % (Manual) Cancelled 03/03/22 11:30 Plasma Cell % (Manual) Cancelled 03/03/22 11:30 Other Cells % Cancelled 03/03/22 11:30 Nucleated RBC % Cancelled 03/03/22 11:30 Neutrophils # (Manual) Cancelled 03/03/22 11:30 Band Neutrophils # Cancelled 03/03/22 11:30 Total Absolute Neuts Cancelled 03/03/22 11:30 Lymphocytes # (Manual) Cancelled 03/03/22 11:30 Prolymphocyte # Cancelled 03/03/22 11:30 Reactive Lymphs # Cancelled 03/03/22 11:30 Total Abs Lymphocytes Cancelled 03/03/22 11:30 Monocytes # (Manual) Cancelled 03/03/22 11:30 Eosinophils # (Manual) Cancelled 03/03/22 11:30 Basophils # (Manual) Cancelled 03/03/22 11:30 Metamyelocytes # (Man) Cancelled 03/03/22 11:30 Myelocytes # (Manual) Cancelled 03/03/22 11:30 Promyelocytes # (Man) Cancelled 03/03/22 11:30 Blast Cells # (Man) Cancelled 03/03/22 11:30 Plasma Cell # (Manual) Cancelled 03/03/22 11:30 Other Cells # Cancelled 03/03/22 11:30 Nucleated RBCs # (Man) Cancelled 03/03/22 11:30 Hypersegmented Neuts Cancelled 03/03/22 11:30 Hyposegmented Neuts Cancelled 03/03/22 11:30 Hypogranular Neuts Cancelled 03/03/22 11:30 Large Granular Lymphs Cancelled 03/03/22 11:30 # Lrg Granular Lymphs Cancelled 03/03/22 11:30 Hairy Cells Cancelled 03/03/22 11:30 Smudge Cells Cancelled 03/03/22 11:30 Toxic Granulation Cancelled 03/03/22 11:30 Toxic Vacuolation Cancelled 03/03/22 11:30 Dohle Bodies Cancelled 03/03/22 11:30 Ming Rods Cancelled 03/03/22 11:30 Platelet Estimate Cancelled 03/03/22 11:30 Hypogranular Platelets Cancelled 03/03/22 11:30 Clumped Platelets Cancelled 03/03/22 11:30 Giant Platelets Cancelled 03/03/22 11:30 Platelet Satelliting Cancelled 03/03/22 11:30 RBC Morphology Cancelled 03/03/22 11:30 Polychromasia Cancelled 03/03/22 11:30 Hypochromasia Cancelled 03/03/22 11:30 Poikilocytosis Cancelled 03/03/22 11:30 Basophilic Stippling Cancelled 03/03/22 11:30 Anisocytosis Cancelled 03/03/22 11:30 Microcytosis Cancelled 03/03/22 11:30 Macrocytosis Cancelled 03/03/22 11:30 Spherocytes Cancelled 03/03/22 11:30 Pappenheimer Bodies Cancelled 03/03/22 11:30 Sickle Cells Cancelled 03/03/22 11:30 Target Cells Cancelled 03/03/22 11:30 Tear Drop Cells Cancelled 03/03/22 11:30 Ovalocytes Cancelled 03/03/22 11:30 Stomatocytes Cancelled 03/03/22 11:[address] Bodies Cancelled 03/03/22 11:30 Echinocytes Cancelled 03/03/22 11:30 Acanthocytes (Spur) Cancelled 03/03/22 11:30 Rouleaux Cancelled 03/03/22 11:30 RBC Agglutinates Cancelled 03/03/22 11:30 Schistocytes Cancelled 03/03/22 11:30 RBC Morph Comment Cancelled 03/03/22 11:30 Sezary Cell Cancelled 03/03/22 11:30 PT 11.1 Seconds (9.0-12.0) 03/03/22 11:30 INR 1.0 (0.9-1.1) 03/03/22 11:30 APTT 23.9 Seconds (21.0-31.0) 03/03/22 11:30 PTT Ratio 0.9 03/03/22 11:30 Sodium 136 mmol/L (136-145) 03/04/22 07:45 Potassium 4.0 mmol/L (3.5-5.1) 03/04/22 07:45 Chloride 102 mmol/L (98-107) 03/04/22 07:45 Carbon Dioxide 27 mmol/L (21-32) 03/04/22 07:45 Anion Gap 7 (3-11) 03/04/22 07:45 BUN 13 mg/dl (6-23) 03/04/22 07:45 Creatinine 1.01 mg/dl (0.6-1.4) 03/04/22 07:45 Est Cr Clr Drug Dosing 82.0 ml/min 03/04/22 07:45 Est GFR ( Amer) 90.7 ml/min 03/04/22 07:45 Est GFR (Non-Af Amer) 78.2 ml/min 03/04/22 07:45 BUN/Creatinine Ratio 12.9 (10-20) 03/04/22 07:45 Glucose 104 mg/dl (70-99(Fasting)) H 03/04/22 07:45 POC Glucose 116 mg/dl (70-99) H 03/04/22 09:05 Estimat Average Glucose 151 mg/dl 03/04/22 07:45 Hemoglobin A1c 6.9 % (4.5-5.6) H 03/04/22 07:45 Calcium 8.7 mg/dl (8.5-10.1) 03/04/22 07:45 Total Bilirubin 0.6 mg/dl (0.2-1.0) 03/03/22 11:30 AST 29 U/L (13-39) 03/03/22 11:30 ALT 28 U/L (7-52) 03/03/22 11:30 Alkaline Phosphatase 95 U/L (34-104) 03/03/22 11:30 Troponin I High Sens 6.0 pg/ml (0-20) 03/03/22 11:30 Total Protein 7.2 gm/dl (6.0-8.3) 03/03/22 11:30 Albumin 3.9 gm/dl (3.4-5.0) 03/03/22 11:30 Globulin 3.3 gm/dl (2.5-4.0) 03/03/22 11:30 Albumin/Globulin Ratio 1.2 (0.9-2) 03/03/22 11:30 Lipase 9 U/L (11-82) L 03/03/22 11:30 Urine Color Yellow 03/03/22 11:35 Urine Appearance Clear (Clear) 03/03/22 11:35 Urine pH 6.5 (4.5-7.5) 03/03/22 11:35 Ur Specific [place] 1.015 (1.000-1.030) 03/03/22 11:35 Urine Protein Negative (Negative) 03/03/22 11:35 Urine Glucose (UA) Negative (Negative) 03/03/22 11:35 Urine Ketones Negative (Negative) 03/03/22 11:35 Urine Blood Negative (Negative) 03/03/22 11:35 Urine Nitrite Negative (Negative) 03/03/22 11:35 Urine Bilirubin Negative (Negative) 03/03/22 11:35 Urine Urobilinogen Negative (Negative) 03/03/22 11:35 Ur Leukocyte Esterase Negative (Negative) 03/03/22 11:35 SARS-CoV-2, RNA, NAAT NEGATIVE (NEGATIVE) 03/03/22 13:18 Diagnostic Findings Chest X-Ray 03/03/22 11:31 XR chest 1V portable, XR KUB/Abdomen 1 view HISTORY: 66 years-old Male right sided pain acute atypical chest pain with acute generalized abdominal pain COMPARISON: CT abdomen pelvis 02/18/2022, chest radiograph 06/17/2017 TECHNIQUE: AP view of the chest with KUB radiograph FINDINGS: CHEST: Cardiomegaly. Coronary arterial stent. No pneumothorax, pleural effusion, airspace consolidation or overt pulmonary edema. Bones appear grossly intact. KUB: Cholelithiasis. Nonobstructive bowel gas pattern. The patient's known left nephrolithiasis are obscured by bowel gas. Pelvic basin phleboliths redemonstrated. No pneumatosis or pneumoperitoneum. Mild to moderate fecal retention. Degenerative changes of the spine, pelvis and hips. IMPRESSION: 1. Cardiomegaly without acute process of the chest. 2. Nonobstructive bowel gas pattern. 3. Cholelithiasis. 4. The patient's known left nephrolithiasis are obscured by bowel gas. ECG 03/03/22: Normal sinus rhythm at 84 bpm. Low voltage QRS. Poor R wave progression. PG Care Time/CCT Total # of Minutes Spent Total Time Spent with Patient: Total time spent is greater than 50% in coordination of care (as documented) at patient's floor/unit and/or counseling patient: Coding Level of Care Code 12161 Initial Inpt Care Lvl 3 Diagnoses Cholelithiasis K80.20 Paroxysmal atrial fibrillation I48.0 CAD (coronary artery disease) I25.10 S/P CABG (coronary artery bypass graft) Z95.1 Hyperlipidemia E78.5 Hypertension I10
[2022-03-04] MEDS ORDERED: PHENYLEPHRINE HCL 10 MG/ML VIAL ONE (10:21)
[2022-03-04] MEDS: SODIUM CHLORIDE 0.9% 1000ML 1,000 ML IV SCH ×2 (11:02→14:28)
--- NOTE | 2022-03-04 11:49 | Surgery Progress Note ---
Date of Service March 04, 2022 Assessment & Plan (1) Acute cholecystitis: Plan: HIDA images and results reviewed, consistent with acute cholecystitis We will plan on laparoscopic cholecystectomy, possible open, possible intraoperative cholangiogram Consent was obtained, risks discussed including bleeding, infection, bile leak, ductal injury He understands he is at higher risk of bleeding due to his Eliquis Admission and Anticipated Discharge Date Admission Date: March 03, 2022 Subjective Patient seen and examined. Patient still has right-sided abdominal pain. Afebrile. No nausea or vomiting. Review of Systems Constitutional: no fever and no chills Physical Exam Constitutional: WD/WN, vitals as above Gastrointestinal (Abdomen): Inspection/Auscultation: abdomen normal to inspection; abdomen not distended Percussion/Palpation: + abdomen tender (Right upper quadrant), + guarding and abdomen soft; abdomen not rigid and no hernia Results & Data ([facility]) Vital Signs (Past 12 Hours) Vital Signs Temp Pulse Resp BP Pulse Ox 03/04/22 07:30 36.4 C L 77 20 132/80 94 PG Care Time/CCT Total # of Minutes Spent Total Time Spent with Patient: Total time spent is greater than 50% in coordination of care (as documented) at patient's floor/unit and/or counseling patient: Coding Level of Care Code 05883 Subseq Hosp Care Lvl 1 Diagnoses Acute cholecystitis K81.0
[2022-03-04] MEDS ORDERED: fentaNYL citrate 100 MCG/2 ML VIAL ONE ×2 (12:01→13:30)
[2022-03-04] MEDS ORDERED: MIDAZOLAM HCL 1 MG/ML 2ML VIAL ONE (12:01)
[2022-03-04] MEDS ORDERED: ROCURONIUM BROMIDE 10 MG/ML 5 ML VIAL IV ONE ×2 (12:03→13:37)
[2022-03-04] MEDS ORDERED: PROPOFOL IV EMULSION 10 MG/ML 20 ML VIAL IV ONE (12:03)
[2022-03-04] MEDS ORDERED: LIDOCAINE 2% 2 ML VIAL/AMP(20MG/ML) INFIL ONE (12:03)
[2022-03-04] MEDS ORDERED: BUPIVACAINE/EPINEPHRINE 0.25% 1:200,000 30 ML VIAL ONE (12:26)
[2022-03-04] MEDS ORDERED: ATROPINE SULFATE 0.1 MG/ML 10ML SYR IV PRN (12:36)
[2022-03-04] MEDS ORDERED: ePHEDrine sulfate 50 MG/ML AMP IV PRN (12:36)
[2022-03-04] MEDS ORDERED: HYDROmorphone INJ 2 MG/ML SYR/VIAL IV PRN (12:36)
[2022-03-04] MEDS ORDERED: ACETAMINOPHEN 500 MG TAB PO ONE (12:37)
[2022-03-04] MEDS ORDERED: GABAPENTIN 300 MG CAP PO ONE (12:37)
[2022-03-04] MEDS ORDERED: ACETAMINOPHEN 500 MG TAB ONE (12:38)
[2022-03-04] MEDS ORDERED: GABAPENTIN 300 MG CAP ONE (12:38)
--- NOTE | 2022-03-04 12:47 | Anesthesiology Consultation ---
Date of Service March 04, 2022 Assessment & Plan Chart Review Chart Review: Acceptable Risk for Surgery Consults Requested cardiac cardiac consult: Assessment & Plan (1) Cholelithiasis: (2) Paroxysmal atrial fibrillation: (3) CAD (coronary artery disease): (4) S/P CABG (coronary artery bypass graft): (5) Hyperlipidemia: (6) Hypertension: 1. Preoperative cardiovascular evaluation: He denies anginal symptoms and has no evidence of myocardial ischemia. ECG yesterday showed no acute ischemic changes. He has no evidence of CHF or significant valvular abnormality. Patient can therefore proceed with necessary gallbladder surgery without any additional cardiovascular testing or intervention. Recommend close monitoring and avoidance of hypotension, hypertension, tachycardia, hypoxia, and significant anemia throughout the perioperative period to reduce myocardial oxygen demand and meet myocardial oxygen delivery. 2. Coronary artery disease s/p CABG x3 in 2011: No angina. Continue beta lin and statin therapy. He is on Eliquis given his history of paroxysmal atrial fibrillation. 3. Ischemic cardiomyopathy: Mildly reduced LV systolic function by most recent echo in November 2018. He does not appear hypervolemic on exam. Continue metoprolol succinate. Can consider initiating an MATEO or an ARB as an outpatient. 4. Paroxysmal atrial fibrillation: Sinus rhythm by ECG yesterday. Regular on exam today. Appears asymptomatic. Continue beta lin therapy for rate control. Restart anticoagulation once safe from a bleeding standpoint. 5. Hypertension: BP has been reasonably well controlled. 6. Hypercholesterolemia: continue statin therapy. Thank you for allowing us to see this patient in consultation. Will arrange routine cardiology follow-up as an outpatient. ASA ASA3 Proposed Anesthesia Anesthesia Type: General Risk / Benefits Reviewed With: PT / POA / Parent / Guardian, Accepts Plan and Informed Consent Obtained History Surgery Operation Date: 03/04/22 09:55 Proposed Procedures p Laparoscopic Cholecystectomy Possible Lopez - Cb Rogers, Height/Weight Height: 5 ft 8 in Weight: 93.6 kg Allergies Allergy/AdvReac Type Severity Reaction Status Date / Time bee venom protein (honey bee) Allergy Severe Anaphylaxis Verified 03/03/22 12:05 wool AdvReac Intermediate Rash Verified 03/03/22 12:05 Medications Home Medications Medication Instructions Recorded Confirmed Last Taken benztropine 0.5 mg tablet 0.5 mg PO BID 08/29/19 03/03/22 03/02/22 hydroxyzine HCl 50 mg tablet 50 mg PO BID #60 tab 03/14/20 03/03/22 03/02/22 aripiprazole 20 mg tablet 30 mg PO HS tab 07/03/20 03/03/22 03/02/22 cholecalciferol (vitamin D3) 50 2,000 unit PO QAM #90 cap 09/24/21 03/03/22 03/02/22 mcg (2,000 unit) capsule diclofenac sodium 1 % topical gel 4 g TOP BID PRN #100 gm 12/03/21 03/03/22 Unknown sertraline 100 mg tablet 100 mg PO PM #90 tab 12/14/21 03/03/22 03/02/22 famotidine 20 mg tablet (Pepcid) 20 mg PO DAILY #30 tab 12/25/21 03/03/22 03/02/22 apixaban 5 mg tablet (Eliquis) 5 mg PO BID #60 tab 01/06/22 03/03/22 03/02/22 celecoxib 100 mg capsule (Celebrex) 100 mg PO BID #180 cap 01/06/22 03/03/22 03/02/22 atorvastatin 20 mg tablet 20 mg PO HS #30 tab 01/07/22 03/03/22 03/02/22 acetaminophen 650 mg 650 mg PO Q8H PRN #90 tab 02/05/22 03/03/22 Unknown tablet,extended release (Tylenol Arthritis Pain) carbidopa 25 mg-levodopa 100 mg 1 tab PO TID #90 tab 02/05/22 03/03/22 03/02/22 tablet metformin 500 mg tablet,extended 1,000 mg PO BID #360 tab 02/08/22 03/03/22 03/02/22 release 24 hr lumateperone 42 mg capsule 42 mg PO DAILY 03/03/22 03/03/22 Unknown (Caplyta) memantine 10 mg tablet 10 mg PO BID 03/03/22 03/03/22 03/02/22 metoprolol succinate 25 mg 25 mg PO QPM 03/03/22 03/03/22 03/02/22 tablet,extended release 24 hr sertraline 50 mg tablet 50 mg PO QPM 03/03/22 03/03/22 03/02/22 trazodone 150 mg tablet 150 mg PO HS 03/03/22 03/03/22 03/02/22 Active Medications Generic Name Dose Route Start Last Admin Trade Name Harvinder PRN Reason Stop Dose Admin Acetaminophen 1,000 mg 03/04/22 12:37 03/04/22 12:40 Acetaminophen 500 Mg Tab PO 03/04/22 12:38 1,000 mg ONCE ONE Administration Aripiprazole 30 mg 03/03/22 21:00 03/03/22 21:01 Aripiprazole 15 Mg Tab PO 04/02/22 20:59 Not Given HS MARY Atorvastatin Calcium 20 mg 03/03/22 21:00 03/03/22 21:01 Atorvastatin 20 Mg Tab PO 04/02/22 20:59 Not Given HS MARY Benztropine Mesylate 0.5 mg 03/03/22 21:00 03/04/22 08:20 Benztropine Mesylate 0.5 Mg Tab PO 04/02/22 20:59 Not Given BID MARY Carbidopa/Levodopa 1 tab 03/03/22 21:00 03/04/22 08:21 Carbidopa/Levodopa 25/100mg Tab PO 04/02/22 20:59 Not Given TID MARY Famotidine 20 mg 03/04/22 09:00 03/04/22 08:21 Famotidine 20 Mg Tab PO 04/03/22 08:59 Not Given DAILY MARY Gabapentin 300 mg 03/04/22 12:37 03/04/22 12:40 Gabapentin 300 Mg Cap PO 03/04/22 12:38 300 mg ONCE ONE Administration Hydromorphone HCl 0.5 mg 03/03/22 17:23 03/04/22 05:03 Hydromorphone Inj 0.5 Mg/0.5 Ml Syr IV 03/17/22 17:22 0.5 mg Q6H PRN Administration Pain Hydroxyzine HCl 50 mg 03/03/22 21:00 03/04/22 08:21 Hydroxyzine Hcl 25 Mg Tab PO 04/02/22 20:59 Not Given BID MARY Sodium Chloride 1,000 mls @ 100 mls/hr 03/03/22 17:23 03/04/22 11:59 Nss 1000ml IV 04/02/22 17:22 0 mls/hr .Q10H MARY Infusion Piperacillin Sod/Tazobactam 115 mls @ 28.75 mls/hr 03/04/22 00:00 03/04/22 12:15 Sod 3.375 gm/ Dextrose IV 03/13/22 00:00 Infused Q8H [facility] Infusion Protocol Insulin Aspart 0 units 03/04/22 07:15 03/04/22 12:22 Insulin Aspart Per Unit SC 04/03/22 07:14 Not Given Q6 MARY Memantine 10 mg 03/03/22 21:00 03/04/22 08:21 Memantine Hcl 10 Mg Tab PO 04/02/22 20:59 Not Given BID MARY Metoprolol Succinate 25 mg 03/03/22 21:00 03/03/22 21:01 Metoprolol Succ 25mg Ext Rel Tab PO 04/02/22 20:59 Not Given QPM MARY Miscellaneous 1 ea 03/04/22 00:00 03/04/22 08:20 Caplyta 42mg: Order Awaiting Action N/A 04/03/22 00:00 Not Given QS MARY Sertraline HCl 50 mg 03/03/22 21:00 03/03/22 21:01 Sertraline Hcl 50 Mg Tablet PO 04/02/22 20:59 Not Given QPM MARY Sertraline HCl 100 mg 03/03/22 21:00 03/03/22 21:01 Sertraline Hcl 100 Mg Tablet PO 04/02/22 20:59 Not Given PM MARY Trazodone HCl 150 mg 03/03/22 21:00 03/03/22 21:01 Trazodone Hcl 50 Mg Tab PO 04/02/22 20:59 Not Given HS MARY NPO Date Last Intake of Fluids: 03/02/22 Time Last Intake of Fluids: 23:59 Date Last Intake of Solids: 03/02/22 Time Last Intake of Solids: 23:59 Past Medical History Medical History Arthritis Asthma NO LONGER USES INH> OK WITHOUT IT CAD (coronary artery disease) Cholelithiasis without cholecystitis NO SURGERY YET Chronic sinusitis Chronic sinusitis Depression, major Gout History of cerebellar stroke APPROX 8 YRS AGO> MEMORY ISSUES> OVERALL WEAKNESS> FOLLOWS DR. THURSTON Hyperlipidemia Hypertension Hypertension Intellectual disability Intracardiac thrombosis PT UNAWARE OF DETAILS Mild cognitive impairment Myocardial infarct 3 TOTAL> LAST ONE APPROX 5 YRS AGO > [facility]> DOESN'T FOLLOW CARDIO> JUST RICOTTA Parkinsonism Paroxysmal atrial fibrillation NO PACER> ON METOPROLOL Schizophrenia, paranoid, chronic Schmorl's nodes of lumbar region Sleep apnea Sleep apnea NO CPAP Tremor Type 2 diabetes mellitus NIDDM Vitamin D deficiency Exercise / Class Metabolic Activity IV < 2 Limit ADL/Bedbound limited by back, drives scooter Past Family History Family History Father Cardiac disorder Hypertension Myocardial infarction Heart disease Mother Dementia Diabetes Sister Myocardial infarction Brother Myocardial infarction Hypertension Diabetes Breast cancer Other Allergies FHx: dementia Denies family history of Ovarian cancer Prostate cancer Hearing loss No family history of adverse response to anesthesia No family history of bleeding disorder Colorectal cancer Cancer Stroke Asthma Past Surgical History Surgical History History of tooth extraction Hx of colonoscopy S/P CABG (coronary artery bypass graft) (2010) x3: approximately 5 years ago. > [facility] Past Anesthesia History No Hx of Anesthesia Complications and No Family Hx of Anesthesia Complications History of PONV No Hx of PONV and No Hx of Motion Sickness Social History Smoking Status: Never smoker Hx Alcohol Use: No Hx Substance Use: No substance use type: does not use Review of Systems ROS Unobtainable: All systems reviewed & are unremarkable except as noted in HPI & below Constitutional: no fever and no chills was nauseated two weeks ago, OK since, appetite preserved, didn't lose weight Eyes: as per Subjective / HPI Ear, Nose, Mouth, Throat: as per Subjective / HPI MATTHIEU, doesn't use CPAP Respiratory: + dyspnea on exertion and + stopping breathing during sleep; no cough, no chest congestion and no dyspnea Cardiovascular: + dyspnea on exertion; no chest pain, no orthopnea, no palpitations, no lightheadedness and no edema Gastrointestinal: + abdominal pain, + heartburn, + nausea, + change in stools and + constipation; no vomiting and no diarrhea/loose stools Genitourinary (Male): + as per Subjective / HPI Musculoskeletal: + back pain; no neck pain, no joint pain, no stiffness and no myalgia Integumentary: no rash Neurologic: + behavioral changes; no gait abnormality, no unsteadiness, no falls and no generalized weakness Psychiatric: as per Subjective / HPI, + depression, + panic attacks and + hallucinations Endocrine: as per Subjective / HPI Hematologic / Lymphatic: as per Subjective / HPI Allergy / Immunological: as per Subjective / HPI Physical Exam Vital Signs Last Vital Signs Temp 36.8 C 03/04/22 12:04 Pulse 84 03/04/22 12:04 Resp 18 03/04/22 12:04 BP 141/93 H 03/04/22 12:04 Pulse Ox 94 03/04/22 12:04 Constitutional WD/WN, vitals as above cooperative; no acute distress ENMT external ear and nose normal, oropharynx normal Mouth: + dental caries, + poor dentition and + chipped teeth; no loose teeth Mallampati Class: III Throat: uvula midline Neck trachea midline, no thyromegaly normal visual inspection, trachea midline, + thick neck and + limited neck extension Respiratory normal respiratory effort, lungs clear to auscultation normal respiratory effort; no respiratory distress Auscultation: + diminished lung sounds; no crackles, no rales, no rhonchi and no wheezes Cardiovascular RRR, no murmur, no edema Rate/Rhythm: regular rate and + irregularly irregular Heart Sounds: normal S1 and normal S2 Vessels: no JVD Gastrointestinal (Abdomen) Inspection/Auscultation: abdomen normal to inspection; abdomen not distended Percussion/Palpation: + abdomen tender (Right upper quadrant), + guarding, abdomen soft and normal to percussion; abdomen not rigid, no hepatosplenomegaly, no hernia and no abdominal mass Skin no rashes, warm and dry Neurologic moves all extremities and awake; no focal motor deficits Cranial Nerves: tongue midline and symmetric palate elevation Psychiatric A+Ox3, euthymic affect Orientation: alert and oriented x 3 Apperance: appropriately dressed and appropriately groomed Eye Contact: good eye contact Speech: normal rate/rhythm/volume of speech Affect: euthymic affect Judgement: good judgement Testing Laboratory Results 03/04/22 07:45 03/04/22 07:45 PT 11.1 Seconds (9.0-12.0) 03/03/22 11:30 INR 1.0 (0.9-1.1) 03/03/22 11:30 APTT 23.9 Seconds (21.0-31.0) 03/03/22 11:30 Hemoglobin A1c 6.9 % (4.5-5.6) H 03/04/22 07:45 Urine Color Yellow 03/03/22 11:35 Urine Appearance Clear (Clear) 03/03/22 11:35 Urine pH 6.5 (4.5-7.5) 03/03/22 11:35 Ur Specific [place] 1.015 (1.000-1.030) 03/03/22 11:35 Urine Protein Negative (Negative) 03/03/22 11:35 Urine Glucose (UA) Negative (Negative) 03/03/22 11:35 Urine Ketones Negative (Negative) 03/03/22 11:35 Urine Nitrite Negative (Negative) 03/03/22 11:35 Ur Leukocyte Esterase Negative (Negative) 03/03/22 11:35 03/04/22 09:05 POC Glucose 116 H
[2022-03-04] MEDS ORDERED: KETAMINE 50 MG/5 ML SYRINGE ONE (12:56)
[2022-03-04] MEDS ORDERED: HYDROmorphone INJ 2 MG/ML SYR/VIAL ONE (13:30)
[2022-03-04] MEDS ORDERED: NEOSTIGMINE METHYLSULFATE 1 MG/ML 10ML VIAL ONE (14:20)
[2022-03-04] MEDS ORDERED: GLYCOPYRROLATE 0.2 MG/ML VIAL ONE (14:20)
--- NOTE | 2022-03-04 15:06 | Operative Report ---
PG Post Operative Report Pre & Post Diagnosis Operation Date: 03/04/22 09:55 Pre-Op Diagnosis: Acute Cholecystits Post-Op Diagnosis: Acute gangrenous Cholecystits I identified the patient and participated in the time-out.: Yes Procedure Operation Date: 03/04/22 09:55 Actual Procedures p Laparoscopic Fenestrated Cholecystectomy - Cb Rogers DO Surgeon Cb Rogers DO Electronic Component Processor Radha Mckeon PA-C Estimated Blood Loss 50 Findings See Below Acute on chronic cholecystitis with dense omental adhesions to the gallbladder Duodenum was also densely adhered to the gallbladder Fluids see anesthesia record Specimens Portion of gallbladder and gallstone to pathology Drains 19 Maldivian Cb drain in the right upper quadrant Anesthesia Type General Complications none Disposition Disposition: Recovery Room Indications 66-year-old male with acute cholecystitis Description of Procedure The patient was brought to the operating room and placed in the supine position with both arms extended. At this time he underwent general endotracheal anesthesia without any problems. He was given appropriate pre-operative antibiotics. His abdomen prepped and draped in the usual sterile fashion. A timeout was called, the procedure was verified as Laparoscopic cholecystectomy, possible open, possible intra-operative cholangiogram. Surgical, nursing and anesthesia teams agreed and the procedure was begun. After injection of 0.25% Marcaine with epinephrine, a supraumbilical vertical incision was made and carried down to the fascia using S-retractors. The abdominal wall was then elevated with towel clamps and abdomen entered using the Veress needle conf irming position using the saline drop test. Pneumoperitoneum was established. 5mm trocar was placed. Laparoscope was introduced. No injury from entry into the abdomen was visualized after inspection of the abdomen. Three further ports were placed under direct visualization. One 11mm in the subxiphoid region and two 5mm in the RUQ. At this time the abdomen was inspected and the gallbladder identified. The gallbladder was acutely inflamed gangrenous and distended. The omentum and transverse colon were adhered to the gallbladder itself. The gallbladder fundus was grasped and retracted cephalad. Using blunt dissection this was taken off the lateral portion of the gallbladder. Next the duodenum was seen to be adhered to the gallbladder more medially. This was able to be carefully dissected off using blunt dissection for approximately half of the gallbladder. At this point as we were nearing the soham hepatis the structures were unable to be identified carefully. Decision was made to then transect the gallbladder using the harmonic device and remove the visible portion of the liver bed. A large stone was also removed from inside the gallbladder. The portion of the gallbladder was then taken off of the liver bed using electrocautery and placed in an endocatch bag and removed from the subxiphoid port. The gallbladder itself was left open and a 19 Maldivian Cb drain was introduced into the right upper quadrant and brought out through the right flank incision. This was sutured into place using 2-0 nylon. Hemostasis was achieved using electrocautery. Hemostasis was complete. The subxiphoid port was then closed using 0-Vicryl using the suture passer. The trocars were then removed under direct visualization and no bleeding was present. Abdomen was desufflated. The skin was then closed using 4-0 Monocryl in a subcuticular fashion. Surgical glue was applied. Needle and sponge counts were correct x 2. At this time the patient was awoken from anesthesia and extubated having remained stable throughout the entire case. The patient was then transported to PACU in stable condition. The physician licensed physical therapy assistant was present scrubbed for the entire case. She was essential in positioning, prepping and draping the patient, driving the laparoscope, retraction and exposure, closure of the incisions and placement of the dressings. I attest to the content of the Intraoperative Record and any orders documented therein. Any exceptions are noted below.
--- NOTE | 2022-03-04 15:06 | Post Operative Brief Note ---
PG Immediate Post Op with CF Date of Surgery March 04, 2022 Pre & Post Diagnosis Operation Date: 03/04/22 09:55 Pre-Op Diagnosis: Acute Cholecystits Post-Op Diagnosis: Acute gangrenous Cholecystits I identified the patient and participated in the time-out.: Yes Procedure Operation Date: 03/04/22 09:55 Actual Procedures p Laparoscopic Fenestrated Cholecystectomy - Cb Rogers DO Surgeon Cb Rogers DO Hide House Supervisor Radha Mckeon PA-C Estimated Blood Loss 50 Findings See Below Acute on chronic cholecystitis with dense omental adhesions to the gallbladder Duodenum was also densely adhered to the gallbladder Specimens Specimen Description: Permanent Specimen A: Portion of Gallbladder and Contents Drains Cb Drain (19Fr.) Anesthesia Type General Complications none Disposition Disposition: Recovery Room
--- NOTE | 2022-03-04 16:19 | Anesthesiology Progress Note ---
Date of Service March 04, 2022 Anesthesia Post Procedure Vital Signs Vital Signs: Temp Pulse Pulse Pulse Resp BP Pulse Ox 03/04/22 16:05 90 16 135/81 91 03/04/22 15:55 91 H 19 137/81 91 03/04/22 15:45 90 17 121/81 91 03/04/22 15:35 93 H 16 143/91 H 91 03/04/22 15:25 94 H 17 133/81 93 03/04/22 15:15 93 H 18 150/77 H 94 03/04/22 15:05 91 H 17 142/81 H 94 03/04/22 14:57 36.2 C L 90 20 154/83 H 94 03/04/22 12:04 36.8 C 84 18 141/93 H 94 03/04/22 07:30 36.4 C L 77 20 132/80 94 03/03/22 20:46 36.5 C 81 18 146/89 H 96 03/03/22 16:30 36.7 C 81 18 138/91 96 Pain Intensity Right Lower Abdomen: Pain Intensity: 4 Right Leg: Pain Intensity: 4 Transfer of Care Handoff Completed per policy Notes Mental Status: alert / awake / arousable Patient Amnestic to Procedure: Yes Nausea / Vomiting: adequately controlled Pain: adequately controlled Airway Patency, RR, SpO2: stable & adequate BP & HR: stable & adequate Hydration State: stable & adequate Anesthetic Complications: no major complications apparent
[2022-03-04] MEDS ORDERED: MoRPHine SULFATE 4 MG/ML 1 ML CARP\\VIAL IV PRN (16:54)
[2022-03-04] MEDS ORDERED: oxyCODONE HCL IR 5 MG TAB (IMMEDIATE RELEASE) PO PRN (16:54)
[2022-03-04] MEDS ORDERED: MoRPHine SULFATE 2 MG/ML CARP IV PRN (16:54)
[2022-03-04] MEDS ORDERED: ACETAMINOPHEN 325 MG TAB PO PRN (16:54)
[2022-03-04] MEDS: LACTATED RINGER'S 1,000 ML IV SCH (17:19)
--- NOTE | 2022-03-04 19:21 | Hospitalist Progress Note ---
Date of Service March 04, 2022 Assessment & Plan (1) Acute gangrenous cholecystitis: Plan: POD #0 cholecystectomy. Drowsy after this therefore will hold his trazodone for tonight. Continue IV Zosyn (2) Paroxysmal atrial fibrillation: Plan: Restart Eliquis when ok from surgical perspective, no urgency with this Continue rate control with metoprolol (3) CAD (coronary artery disease): Plan: Continue statin and beta-lin as noted (4) Hypertension: Plan: Continue metoprolol as ordered (5) Sleep apnea: Plan: Per documentation. Patient has apparently refused any further work-up of this on multiple occasions with his primary care provider. Continue to monitor. (6) Type 2 diabetes mellitus: Plan: Will hold metformin. Patient is on no other hypoglycemics Novolog: Goal BSG Range: Low 100_mg/dL, High 140 _mg/dL Correction Factor: 50_mg/dL/unit Carbohydrate ratio = _25_ g/unit BSGs ACHS if eating, q6h if npo (7) Hyperlipidemia: Plan: Continue atorvastatin (8) Schizophrenia, paranoid, chronic: Plan: Continue aripiprazole and hydroxyzine. Hold trazodone for tonight. (9) Parkinsonism: Plan: Continue Sinemet and benztropine as ordered. ?due to antipsychotics. Plan: VTE Prophylaxis - restart Eliquis when ok by surgery Diet - T2DM, full liquid Disposition - continue admission on med/surg Admission and Anticipated Discharge Date Admission Date: March 03, 2022 Subjective Patient seen post operatively after anesthesia and is currently quite drowsy. He denies any abdominal pain but falls back to sleep easily. Not yet had anything to eat or drink but did manage to take his pills after refusing them earlier in day as he couldn't have them without food. Review of Systems Review of Systems: All systems reviewed & are unremarkable except as noted in Subjective Physical Exam Constitutional: WD/WN, vitals as above Eyes: + anicteric sclerae; normal pupil size Respiratory: normal respiratory effort, lungs clear to auscultation Cardiovascular: Rate/Rhythm: regular rate and + irregularly irregular Heart Sounds: no murmur Gastrointestinal (Abdomen): Inspection/Auscultation: + abdomen distended and + hypoactive bowel sounds Percussion/Palpation: abdomen soft; abdomen nontender Skin: no rashes, warm and dry Neurologic: awake (to voice) Results & Data Results & Data ([facility]) Vital Signs (Past 12 Hours) Vital Signs Temp Pulse Pulse Pulse Pulse Resp BP 03/04/22 18:50 36.3 C L 89 18 129/87 03/04/22 17:50 36.5 C 91 H 18 151/89 H 03/04/22 17:22 03/04/22 17:21 36.5 C 89 16 152/81 H 03/04/22 16:50 36.6 C 88 16 137/81 03/04/22 16:25 90 18 03/04/22 16:15 36.7 C 90 19 03/04/22 16:05 90 16 03/04/22 15:55 91 H 19 03/04/22 15:45 90 17 03/04/22 15:35 93 H 16 03/04/22 15:25 94 H 17 03/04/22 15:15 93 H 18 03/04/22 15:05 91 H 17 03/04/22 14:57 36.2 C L 90 20 03/04/22 12:04 36.8 C 84 18 03/04/22 07:30 36.4 C L 77 20 BP Pulse Ox Pulse Ox 03/04/22 18:50 95 03/04/22 17:50 94 03/04/22 17:22 93 03/04/22 17:21 93 03/04/22 16:50 93 03/04/22 16:25 122/82 92 03/04/22 16:15 140/84 92 03/04/22 16:05 135/81 91 03/04/22 15:55 137/81 91 03/04/22 15:45 121/81 91 03/04/22 15:35 143/91 H 91 03/04/22 15:25 133/81 93 03/04/22 15:15 150/77 H 94 03/04/22 15:05 142/81 H 94 03/04/22 14:57 154/83 H 94 03/04/22 12:04 141/93 H 94 03/04/22 07:30 132/80 94 PG Care Time/CCT Total # of Minutes Spent Total Time Spent with Patient: Total time spent is greater than 50% in coordination of care (as documented) at patient's floor/unit and/or counseling patient: Coding Level of Care Code 87102 Subseq Obs Care Lvl 2 Diagnoses Paroxysmal atrial fibrillation I48.0 CAD (coronary artery disease) I25.10 Hypertension I10 Sleep apnea G47.30 Type 2 diabetes mellitus E11.9 Hyperlipidemia E78.5 Schizophrenia, paranoid, chronic F20.0 Parkinsonism G20 Acute gangrenous cholecystitis K81.0
[2022-03-04] MEDS: ARIPiprazole 15 MG TAB PO SCH (19:31)
[2022-03-04] MEDS: ATORVASTATIN 20 MG TAB PO SCH (19:31)
[2022-03-04] MEDS: SERTRALINE HCL 100 MG TABLET PO SCH (19:32)
[2022-03-04] MEDS: SERTRALINE HCL 50 MG TABLET PO SCH (19:32)
[2022-03-04] MEDS: METOPROLOL SUCC 25MG EXT REL TAB PO SCH (19:33)
--- NOTE | 2022-03-04 22:51 | Electrocardiogram Report ---
Test Reason : Blood Pressure : / mmHG Vent. Rate : 084 BPM Atrial Rate : 084 BPM P-R Int : 170 ms QRS Dur : 070 ms QT Int : 384 ms P-R-T Axes : 036 004 019 degrees QTc Int : 453 ms Normal sinus rhythm Low voltage QRS Possible Inferior infarct (cited on or before 17-JUN-2017) Anteroseptal infarct (cited on or before 08-APR-2017) Abnormal ECG When compared with ECG of 17-JUN-2017 18:10, No significant change Confirmed by Wayne Martines ([id number] on 03/04/2022 10:51:10 PM Referred By: Confirmed By:Wayne Martines
[2022-03-05] MEDS: oxyCODONE HCL IR 5 MG TAB (IMMEDIATE RELEASE) PO PRN ×3 (00:31→20:18)
[2022-03-05] MEDS: LACTATED RINGER'S 1,000 ML IV SCH ×2 (03:54→12:34)
[2022-03-05] MEDS: PIPERACILLIN/TAZOBACTAM 3.375 GM in DEXTROSE 5% 100 ML IV SCH ×2 (08:04)
[2022-03-05 08:11] LABS: Basophils # (auto) 0.02 K/uL (0-0.2); Basophils % (auto) 0.2 %; Eosinophils # (auto) 0.37 K/uL (0-0.5); Eosinophils % (auto) 3.1 %; Hematocrit (blood only) 39.1 % (42-52); Hemoglobin 13.1 g/dL (14.0-18.0); Immature Granulocytes # (auto) 0.03 K/uL (0.00-0.02); Immature Granulocytes % (auto) 0.3 %; Lymphocytes # (auto) 1.67 K/uL (1.2-3.4); Lymphocytes % (auto) 14.2 %; Mean Corpuscular Hemoglobin 27.2 pg (25-34); Mean Corpuscular Hgb Conc 33.5 g/dL (32-36); Mean Corpuscular Volume 81.3 fL (80-100); Mean Platelet Volume 9.2 fL (7.4-10.4); Monocytes # (auto) 1.13 K/uL (0.11-0.59); Monocytes % (auto) 9.6 %; Neutrophils # (auto) 8.58 K/uL (1.4-6.5); Neutrophils % (auto) 72.6 %; Platelet Count 363 K/uL (130-400); RDW Coefficient of Variation 14.5 % (11.5-14.5); RDW Standard Deviation 43.1 fL (36.4-46.3); Red Blood Count 4.81 M/uL (4.7-6.1)
[2022-03-05 08:16] LABS: Albumin Level 3.3 gm/dl (3.4-5.0); BUN Creatinine Ratio 10.8 (10-20); Bilirubin Direct 0.3 mg/dl (0-0.2); Bilirubin,Total 0.8 mg/dl (0.2-1.0); Calcium 8.9 mg/dl (8.5-10.1); Creatinine Clr Calc Pharmacy 81.2 ml/min; Est GFR (African American) 89.6 ml/min; Est GFR (Non-African American) 77.3 ml/min; Potassium 3.8 mmol/L (3.5-5.1); Total Protein 6.2 gm/dl (6.0-8.3)
[2022-03-05] MEDS: BENZTROPINE MESYLATE 0.5 MG TAB PO SCH ×2 (09:01→20:17)
[2022-03-05] MEDS: FAMOTIDINE 20 MG TAB PO SCH (09:02)
[2022-03-05] MEDS: CARBIDOPA/LEVODOPA 25/100MG TAB PO SCH ×3 (09:02→20:17)
[2022-03-05] MEDS: hydrOXYzine HCl 25 MG TAB PO SCH ×2 (09:03→20:17)
[2022-03-05] MEDS: MEMANTINE HCL 10 MG TAB PO SCH ×2 (09:03→20:17)
--- NOTE | 2022-03-05 10:30 | Surgery Progress Note ---
Date of Service March 05, 2022 Assessment & Plan (1) Acute gangrenous cholecystitis: Plan: POD#1 laparoscopic fenestrated cholecystectomy for acute gangrenous cholecystitis -WBC 11.8, Hbg 13.1, LFTs --> Tb: 0.8, AST 48, ALT: 12, Db: 0.3 -Continue on course of abx -BAILEE drain at this time is serosanguineous. Plan to keep in place. If drain output becomes bilious over the wknd would consider consulting GI for ERCP for bile leak -May advance diet as tolerates -If doing okay may resume Eliquis on 03/07/22 -[facility] surgery is covering over the wknd Admission and Anticipated Discharge Date Admission Date: March 05, 2022 Supervising Physician Co-Signing Physician Notes I personally saw and evaluated the patient with Radha Mckeon PA-C and agree with the assessment and plan. 66-year-old male with acute on chronic cholecystitis now postop day 1 laparoscopic fenestrated cholecystectomy with drain placement He is doing well 1 day postop with minimal pain He is tolerating clear liquids without issue, can advance diet as tolerated Monitor drain output as his diet is advanced, currently it is serosanguineous If he begins to pour out a lot of bile into his drain, would have GI evaluate the patient for ERCP Continue antibiotics He may restart his Eliquis on March 07 in the a.m. if he remains stable throughout the weekend Subjective Patient is doing okay. Denies any nausea. Pain tolerable. No complaints. Physical Exam Physical Exam: awake Gastrointestinal (Abdomen): Inspection/Auscultation: + abdominal surgical incision (c/d/u) and + abdominal surgical drain present (serosang output) Percussion/Palpation: abdomen soft Results & Data ([facility]) Vital Signs (Past 12 Hours) Vital Signs Temp Pulse Resp BP BP Pulse Ox 03/05/22 07:40 36.3 C L 86 18 131/87 95 03/05/22 03:01 36.3 C L 91 H 18 138/88 95 PG Care Time/CCT Total # of Minutes Spent Total Time Spent with Patient: Total time spent is greater than 50% in coordination of care (as documented) at patient's floor/unit and/or counseling patient: Coding Level of Care Code None Diagnoses Acute gangrenous cholecystitis K81.0
[2022-03-05] MEDS: INSULIN ASPART PER UNIT SC SCH ×4 (10:44→20:36)
[2022-03-05] MEDS: cefTRIAXone SODIUM 2,000 MG in DEXTROSE 5% 50 ML IV SCH (15:35)
[2022-03-05] MEDS: metroNIDAZOLE 500 MG/100 ML BAG IV SCH ×2 (16:14→23:56)
--- NOTE | 2022-03-05 18:30 | Hospitalist Progress Note ---
Date of Service March 05, 2022 Assessment & Plan (1) Acute gangrenous cholecystitis: Plan: POD #1 cholecystectomy. Progressing as expected following this. IV Zosyn switched to ceftriaxone and metronidazole given no immunosuppressed state (2) Paroxysmal atrial fibrillation: Plan: Restart Eliquis when ok from surgical perspective, planning on 03/07 per surgery note Continue rate control with metoprolol (3) CAD (coronary artery disease): Plan: Continue statin and metoprolol. Restart Eliquis 03/07. (4) Hypertension: Plan: Continue metoprolol succinate 25mg PO HS (5) Sleep apnea: Plan: Per documentation. Patient has apparently refused any further work-up of this on multiple occasions with his primary care provider. Continue to monitor. (6) Type 2 diabetes mellitus: Plan: Will hold metformin. Patient is on no other hypoglycemics POC glucose 111 - 192 last 24 hours. Start Lantus 8 units SQ HS HbA1C 6.9 - can restart his usual meds on discharge Novolog: Goal BSG Range: Low 100_mg/dL, High 140 _mg/dL Correction Factor: 45_mg/dL/unit Carbohydrate ratio = _25_ g/unit BSGs ACHS if eating, q6h if npo (7) Hyperlipidemia: Plan: Continue atorvastatin (8) Schizophrenia, paranoid, chronic: Plan: Continue aripiprazole, hydroxyzine and trazodone. (9) Parkinsonism: Plan: Continue Sinemet and benztropine as ordered. ?due to antipsychotics. Plan: VTE Prophylaxis - restart Eliquis 03/07 Diet - T2DM, full liquid Disposition - continue admission on med/surg Admission and Anticipated Discharge Date Admission Date: March 05, 2022 Subjective Patient much more awake today. Abdominal pain when coughing and moving but not eating. No fever or chills. Review of Systems Review of Systems: All systems reviewed & are unremarkable except as noted in Subjective Physical Exam Constitutional: WD/WN, vitals as above Eyes: + anicteric sclerae; normal pupil size Respiratory: normal respiratory effort, lungs clear to auscultation Cardiovascular: Rate/Rhythm: regular rate and + irregularly irregular Heart Sounds: no murmur Gastrointestinal (Abdomen): Inspection/Auscultation: + abdomen distended and normal bowel sounds Percussion/Palpation: abdomen soft; abdomen nontender Skin: no rashes, warm and dry Neurologic: moves all extremities and awake; not confused Psychiatric: A+Ox3, euthymic affect Results & Data Results & Data ([facility]) Vital Signs (Past 12 Hours) Vital Signs Temp Pulse Resp BP Pulse Ox 03/05/22 14:38 36.7 C 85 17 157/90 H 98 03/05/22 13:04 36.7 C 89 18 152/90 H 95 03/05/22 07:40 36.3 C L 86 18 131/87 95 PG Care Time/CCT Total # of Minutes Spent Total Time Spent with Patient: Total time spent is greater than 50% in coordination of care (as documented) at patient's floor/unit and/or counseling patient: Coding Level of Care Code 51296 Subseq Hosp Care Lvl 2 Diagnoses Acute gangrenous cholecystitis K81.0 Paroxysmal atrial fibrillation I48.0 CAD (coronary artery disease) I25.10 Hypertension I10 Sleep apnea G47.30 Type 2 diabetes mellitus E11.9 Hyperlipidemia E78.5 Schizophrenia, paranoid, chronic F20.0 Parkinsonism G20
[2022-03-05] MEDS: traZODone HCL 50 MG TAB PO SCH (20:17)
[2022-03-05] MEDS: ATORVASTATIN 20 MG TAB PO SCH (20:17)
[2022-03-05] MEDS: SERTRALINE HCL 100 MG TABLET PO SCH (20:17)
[2022-03-05] MEDS: ARIPiprazole 15 MG TAB PO SCH (20:17)
[2022-03-05] MEDS: METOPROLOL SUCC 25MG EXT REL TAB PO SCH (20:17)
[2022-03-05] MEDS: SERTRALINE HCL 50 MG TABLET PO SCH (20:17)
[2022-03-05] MEDS: INSULIN GLARGINE SOLOSTAR 100 UNITS/ML 3 ML PEN SC SCH (20:33)
[2022-03-06] MEDS ORDERED: POLYETHYLENE (MIRALAX) 17 GM PACK PO PRN (01:38)
[2022-03-06] MEDS: INSULIN ASPART PER UNIT SC SCH ×4 (08:39→21:00)
[2022-03-06] MEDS: BENZTROPINE MESYLATE 0.5 MG TAB PO SCH ×2 (08:39→20:15)
[2022-03-06] MEDS: hydrOXYzine HCl 25 MG TAB PO SCH ×2 (08:39→20:15)
[2022-03-06] MEDS: CARBIDOPA/LEVODOPA 25/100MG TAB PO SCH ×3 (08:39→20:15)
[2022-03-06] MEDS: FAMOTIDINE 20 MG TAB PO SCH (08:39)
[2022-03-06] MEDS: DOCUSATE SODIUM 100 MG CAP PO SCH ×2 (08:39→20:15)
[2022-03-06] MEDS: metroNIDAZOLE 500 MG/100 ML BAG IV SCH ×3 (08:39→23:21)
[2022-03-06] MEDS: MEMANTINE HCL 10 MG TAB PO SCH ×2 (08:40→20:16)
--- NOTE | 2022-03-06 10:17 | Surgery Progress Note ---
Date of Service March 06, 2022 Assessment & Plan (1) Acute gangrenous cholecystitis: Plan: -continue drain -advance diet -ambulate -eliquis can be started tomorrow Admission and Anticipated Discharge Date Admission Date: March 05, 2022 Subjective -pain controlled -eating OK -drain with bloody drainage, minimal Review of Systems Constitutional: no fever and no chills Respiratory: no cough and no dyspnea Cardiovascular: no chest pain Gastrointestinal: + abdominal pain; no nausea and no vomiting Genitourinary: no dysuria Musculoskeletal: no back pain Integumentary: + rash and + lesions Physical Exam Constitutional: well developed and well nourished; not ill appearing Eyes: PERRL, conjunctivae normal, anicteric sclerae ENMT: external ear and nose normal, oropharynx normal Neck: trachea midline Respiratory: normal respiratory effort, lungs clear to auscultation Cardiovascular: RRR, no murmur, no edema Gastrointestinal (Abdomen): Inspection/Auscultation: + abdominal surgical incision (clean and dry; drain inpalce not bilious); abdomen not distended Percussion/Palpation: + abdomen tender and abdomen soft Results & Data ([facility]) Vital Signs (Past 12 Hours) Vital Signs Temp Pulse Resp BP BP Pulse Ox 03/06/22 07:50 36.4 C L 87 16 132/88 90 03/05/22 22:48 36.8 C 101 H 20 137/85 90
[2022-03-06] MEDS: cefTRIAXone SODIUM 2,000 MG in DEXTROSE 5% 50 ML IV SCH (13:42)
--- NOTE | 2022-03-06 19:11 | Hospitalist Progress Note ---
Date of Service March 06, 2022 Assessment & Plan (1) Acute gangrenous cholecystitis: Plan: POD #2 cholecystectomy. Progressing as expected following this. Continue ceftriaxone and metronidazole Appreciate surgery management (2) Paroxysmal atrial fibrillation: Plan: Restart Eliquis when ok from surgical perspective, planning on 03/07 per surgery note Continue rate control with metoprolol (3) CAD (coronary artery disease): Plan: Continue statin and metoprolol. Restart Eliquis 03/07. (4) Hypertension: Plan: Continue metoprolol succinate 25mg PO HS (5) Sleep apnea: Plan: Per documentation. Patient has apparently refused any further work-up of this on multiple occasions with his primary care provider. Continue to monitor . (6) Type 2 diabetes mellitus: Plan: Will hold metformin. Patient is on no other hypoglycemics POC glucose 111 - 141 last 24 hours. Continue Lantus 8 units SQ HS HbA1C 6.9 - can restart his usual meds on discharge Novolog: Goal BSG Range: Low 100_mg/dL, High 140 _mg/dL Correction Factor: 50_mg/dL/unit Carbohydrate ratio = _25_ g/unit BSGs ACHS if eating, q6h if npo (7) Hyperlipidemia: Plan: Continue atorvastatin (8) Schizophrenia, paranoid, chronic: Plan: Continue aripiprazole, hydroxyzine and trazodone. (9) Parkinsonism: Plan: Continue Sinemet and benztropine as ordered. ?due to antipsychotics. Plan: VTE Prophylaxis - restart Eliquis 03/07 Diet - T2DM Disposition - continue admission on med/surg Admission and Anticipated Discharge Date Admission Date: March 05, 2022 Subjective Patient mobilizing around the cabral using a walker. Tolerating full diet. No abdominal pain at rest or when eating, just if he coughs. Drain still in place with bloody drainage. Review of Systems Review of Systems: All systems reviewed & are unremarkable except as noted in Subjective Physical Exam Constitutional: WD/WN, vitals as above Respiratory: normal respiratory effort, lungs clear to auscultation Cardiovascular: Rate/Rhythm: regular rate and regular rhythm Heart Sounds: no murmur Gastrointestinal (Abdomen): Inspection/Auscultation: + abdomen distended and normal bowel sounds Percussion/Palpation: abdomen soft; abdomen nontender Skin: no rashes, warm and dry Neurologic: moves all extremities and awake; not confused Psychiatric: A+Ox3, euthymic affect Results & Data Results & Data ([facility]) Vital Signs (Past 12 Hours) Vital Signs Temp Pulse Resp BP Pulse Ox 03/06/22 07:50 36.4 C L 87 16 132/88 90 PG Care Time/CCT Total # of Minutes Spent Total Time Spent with Patient: Total time spent is greater than 50% in coordination of care (as documented) at patient's floor/unit and/or counseling patient: Coding Level of Care Code 09651 Subseq Hosp Care Lvl 2 Diagnoses Acute gangrenous cholecystitis K81.0 Paroxysmal atrial fibrillation I48.0 CAD (coronary artery disease) I25.10 Hypertension I10 Sleep apnea G47.30 Type 2 diabetes mellitus E11.9 Hyperlipidemia E78.5 Schizophrenia, paranoid, chronic F20.0 Parkinsonism G20
[2022-03-06] MEDS: ARIPiprazole 15 MG TAB PO SCH (20:15)
[2022-03-06] MEDS: ATORVASTATIN 20 MG TAB PO SCH (20:15)
[2022-03-06] MEDS: SERTRALINE HCL 100 MG TABLET PO SCH (20:16)
[2022-03-06] MEDS: traZODone HCL 50 MG TAB PO SCH (20:16)
[2022-03-06] MEDS: SERTRALINE HCL 50 MG TABLET PO SCH (20:16)
[2022-03-06] MEDS: METOPROLOL SUCC 25MG EXT REL TAB PO SCH (20:16)
[2022-03-06] MEDS: oxyCODONE HCL IR 5 MG TAB (IMMEDIATE RELEASE) PO PRN (20:20)
[2022-03-06] MEDS: INSULIN GLARGINE SOLOSTAR 100 UNITS/ML 3 ML PEN SC SCH (21:00)
[2022-03-07] MEDS: FAMOTIDINE 20 MG TAB PO SCH (08:07)
[2022-03-07] MEDS: APIXABAN 2.5 MG TAB PO SCH ×2 (08:07→20:17)
[2022-03-07] MEDS: BENZTROPINE MESYLATE 0.5 MG TAB PO SCH ×2 (08:07→20:18)
[2022-03-07] MEDS: DOCUSATE SODIUM 100 MG CAP PO SCH ×2 (08:07→20:18)
[2022-03-07] MEDS: MEMANTINE HCL 10 MG TAB PO SCH ×2 (08:07→20:18)
[2022-03-07] MEDS: CARBIDOPA/LEVODOPA 25/100MG TAB PO SCH ×3 (08:07→20:17)
[2022-03-07] MEDS: metroNIDAZOLE 500 MG/100 ML BAG IV SCH (08:07)
[2022-03-07] MEDS: hydrOXYzine HCl 25 MG TAB PO SCH (08:07)
[2022-03-07] MEDS: INSULIN ASPART PER UNIT SC SCH ×4 (09:06→20:43)
--- NOTE | 2022-03-07 09:49 | Surgery Progress Note ---
Date of Service March 07, 2022 Assessment & Plan (1) Acute gangrenous cholecystitis: Plan: -s/p fenestrated cristina with drain in place -keep drain -discharge per medical team, drain goes home with patient -activity; no strenuous activity -diet as tolerated Admission and Anticipated Discharge Date Admission Date: March 05, 2022 Subjective -doing well -no complaints -drain serosanguinous Review of Systems Constitutional: no fever and no chills Respiratory: no cough and no dyspnea Cardiovascular: no chest pain Gastrointestinal: + abdominal pain; no nausea and no vomiting Genitourinary: no dysuria Physical Exam Constitutional: well developed and well nourished Neck: trachea midline Respiratory: normal respiratory effort, lungs clear to auscultation Cardiovascular: RRR, no murmur, no edema Gastrointestinal (Abdomen): Inspection/Auscultation: abdomen normal to inspection; abdomen not distended Percussion/Palpation: + abdomen tender and abdomen soft; no guarding Results & Data ([facility]) Vital Signs (Past 12 Hours) Vital Signs Temp Pulse Resp BP Pulse Ox 03/06/22 22:59 36.3 C L 92 H 18 138/88 93
[2022-03-07] MEDS: metroNIDAZOLE 500 MG TAB PO SCH ×2 (13:00→20:18)
[2022-03-07] MEDS: cefTRIAXone SODIUM 2,000 MG in DEXTROSE 5% 50 ML IV SCH (15:53)
--- NOTE | 2022-03-07 16:08 | Hospitalist Progress Note ---
Date of Service March 07, 2022 Assessment & Plan (1) Acute gangrenous cholecystitis: Plan: POD #3 cholecystectomy. Progressing as expected following this. Continue ceftriaxone and metronidazole (switched to PO Appreciate surgery management Suspect can be discharged home tomorrow but appears very lethargic today. He is unclear whether he takes the hydroxyzine in the morning at home therefore will hold the morning dose of this medication. Last opiates were last night. No benzodiazepines overnight. (2) Paroxysmal atrial fibrillation: Plan: Eliquis restarted 03/07 Continue rate control with metoprolol (3) CAD (coronary artery disease): Plan: Continue statin and metoprolol. Restarted Eliquis 03/07. (4) Hypertension: Plan: Continue metoprolol succinate 25mg PO HS (5) Sleep apnea: Plan: Per documentation. Patient has apparently refused any further work-up of this on multiple occasions with his primary care provider. Continue to monitor. (6) Type 2 diabetes mellitus: Plan: Will hold metformin. Patient is on no other hypoglycemics POC glucose 92 - 164 last 24 hours. Continue Lantus 8 units SQ HS HbA1C 6.9 - can restart his usual meds on discharge Novolog: Goal BSG Range: Low 100_mg/dL, High 140 _mg/dL Correction Factor: 50_mg/dL/unit Carbohydrate ratio = _25_ g/unit BSGs ACHS if eating, q6h if npo (7) Hyperlipidemia: Plan: Continue atorvastatin (8) Schizophrenia, paranoid, chronic: Plan: Continue aripiprazole, hydroxyzine and trazodone. (9) Parkinsonism: Plan: Continue Sinemet and benztropine as ordered. ?due to antipsychotics. Plan: VTE Prophylaxis - restarted Eliquis 03/07 Diet - T2DM Disposition - continue admission on med/surg Admission and Anticipated Discharge Date Admission Date: March 05, 2022 Subjective Patient appears very lethargic today and was visited on three occasions and sleeping. Able to wake up with noxious stimuli but not to voice. Appeared back to his normal self when awake. On discussion with his RN he has had periods like this the last 2 days in addition so it may have just been the time of day I was seeing him rather than a deterioration. He reports eating and drinking well and was mobilizing around the cabral earlier today. No abdominal pain at rest. Per surgery ok to discharge from their perspective. Review of Systems Review of Systems: All systems reviewed & are unremarkable except as noted in Subjective Physical Exam Constitutional: WD/WN, vitals as above Eyes: + anicteric sclerae; normal pupil size Respiratory: normal respiratory effort, lungs clear to auscultation Cardiovascular: Rate/Rhythm: regular rate and regular rhythm Heart Sounds: no murmur Gastrointestinal (Abdomen): Inspection/Auscultation: + abdomen distended and normal bowel sounds Percussion/Palpation: abdomen soft; abdomen nontender Skin: no rashes, warm and dry Neurologic: moves all extremities and awake; not confused Psychiatric: A+Ox3, euthymic affect PG Care Time/CCT Total # of Minutes Spent Total Time Spent with Patient: Total time spent is greater than 50% in coordination of care (as documented) at patient's floor/unit and/or counseling patient: Coding Level of Care Code 29328 Subseq Hosp Care Lvl 2 Diagnoses Acute gangrenous cholecystitis K81.0 Paroxysmal atrial fibrillation I48.0 CAD (coronary artery disease) I25.10 Hypertension I10 Sleep apnea G47.30 Type 2 diabetes mellitus E11.9 Hyperlipidemia E78.5 Schizophrenia, paranoid, chronic F20.0 Parkinsonism G20
[2022-03-07] MEDS: SERTRALINE HCL 50 MG TABLET PO SCH (20:17)
[2022-03-07] MEDS: SERTRALINE HCL 100 MG TABLET PO SCH (20:17)
[2022-03-07] MEDS: METOPROLOL SUCC 25MG EXT REL TAB PO SCH (20:18)
[2022-03-07] MEDS: traZODone HCL 50 MG TAB PO SCH (20:18)
[2022-03-07] MEDS: ATORVASTATIN 20 MG TAB PO SCH (20:18)
[2022-03-07] MEDS: ARIPiprazole 15 MG TAB PO SCH (20:18)
[2022-03-07] MEDS: POLYETHYLENE (MIRALAX) 17 GM PACK PO SCH (20:19)
[2022-03-07] MEDS: INSULIN GLARGINE SOLOSTAR 100 UNITS/ML 3 ML PEN SC SCH (20:43)
[2022-03-07] MEDS ORDERED: hydrOXYzine HCl 25 MG TAB PO SCH (21:00)
[2022-03-08] MEDS: POLYETHYLENE (MIRALAX) 17 GM PACK PO SCH (08:29)
[2022-03-08] MEDS: MEMANTINE HCL 10 MG TAB PO SCH (08:29)
[2022-03-08] MEDS: BENZTROPINE MESYLATE 0.5 MG TAB PO SCH (08:29)
[2022-03-08] MEDS: APIXABAN 2.5 MG TAB PO SCH (08:29)
[2022-03-08] MEDS: metroNIDAZOLE 500 MG TAB PO SCH (08:29)
[2022-03-08] MEDS: CARBIDOPA/LEVODOPA 25/100MG TAB PO SCH (08:29)
[2022-03-08] MEDS: DOCUSATE SODIUM 100 MG CAP PO SCH (08:29)
[2022-03-08] MEDS: FAMOTIDINE 20 MG TAB PO SCH (08:29)
[2022-03-08] MEDS: INSULIN ASPART PER UNIT SC SCH (08:52)
--- NOTE | 2022-03-08 08:59 | Hospitalist Progress Note ---
Date of Service March 08, 2022 Assessment & Plan (1) Acute gangrenous cholecystitis: Plan: POD #4 cholecystectomy. Progressing as expected following this. Continue ceftriaxone and metronidazole (switched to PO) Appreciate surgery management Suspect can be discharged home tomorrow but appears very lethargic today. He is unclear whether he takes the hydroxyzine in the morning at home therefore will hold the morning dose of this medication. Last opiates were last night. No benzodiazepines overnight. (2) Paroxysmal atrial fibrillation: Plan: Eliquis restarted 03/07 Continue rate control with metoprolol (3) CAD (coronary artery disease): Plan: Continue statin and metoprolol. Restarted Eliquis 03/07. (4) Hypertension: Plan: Continue metoprolol succinate 25mg PO HS (5) Sleep apnea: Plan: Per documentation. Patient has apparently refused any further work-up of this on multiple occasions with his primary care provider. Continue to monitor. (6) Type 2 diabetes mellitus: Plan: Will hold metformin. Patient is on no other hypoglycemics POC glucose 92 - 164 last 24 hours. Continue Lantus 8 units SQ HS HbA1C 6.9 - can restart his usual meds on discharge Novolog: Goal BSG Range: Low 100_mg/dL, High 140 _mg/dL Correction Factor: 50_mg/dL/unit Carbohydrate ratio = _25_ g/unit BSGs ACHS if eating, q6h if npo (7) Hyperlipidemia: Plan: Continue atorvastatin (8) Schizophrenia, paranoid, chronic: Plan: Continue aripiprazole, hydroxyzine and trazodone. (9) Parkinsonism: Plan: Continue Sinemet and benztropine as ordered. ?due to antipsychotics. Plan: VTE Prophylaxis - restarted Eliquis 03/07 Diet - T2DM Disposition - continue admission on med/surg Admission and Anticipated Discharge Date Admission Date: March 05, 2022 Results & Data Results & Data ([facility]) Vital Signs (Past 12 Hours) Vital Signs Temp Pulse Pulse Resp BP Pulse Ox 03/08/22 08:21 36.9 C 88 18 133/87 92 03/07/22 22:00 36.5 C 88 18 129/81 94 PG Care Time/CCT Total # of Minutes Spent Total Time Spent with Patient: Total time spent is greater than 50% in coordination of care (as documented) at patient's floor/unit and/or counseling patient: Coding Diagnoses Acute gangrenous cholecystitis K81.0 Paroxysmal atrial fibrillation I48.0 CAD (coronary artery disease) I25.10 Hypertension I10 Sleep apnea G47.30 Type 2 diabetes mellitus E11.9 Hyperlipidemia E78.5 Schizophrenia, paranoid, chronic F20.0 Parkinsonism G20
--- NOTE | 2022-03-08 10:54 | Discharge Summary ---
Date of Service March 08, 2022 Admission HPI Per Admitting Provider This is a 66-year-old male with past medical history of PAF on Eliquis, CAD status post CABG, chronic lower back pain the presented to the hospital today with abdominal pain after seeing his primary care provider. Unfortunately, the patient is a poor historian. Per patient, he has been having pain in his abdomen for several months. This is mostly right lower quadrant. Associated with some constipation. Is associated with some nausea and vomiting. It does appear that he was worked up for this in the past, and I do see imaging from 2019 that shows a 2 cm gallstone. The patient tells me he had seen his primary care provider more recently and had a repeat right upper quadrant ultrasound. There is one in our system from today that shows a 2 cm stone with some minimal pericholecystic stranding. This follows a CT scan from 02/18/2022 that shows a gallbladder stone as seen in the neck of the gallbladder. Patient was ultimately told today by his primary care provider to present to the emergency room for further work-up. At time of evaluation, the patient appears to be comfortable. He does tell me he has some uncomfortable abdomen. Patient is already been seen by general surgery, there is consideration to cholecystectomy but they are requesting a HIDA scan be performed. Patient will be placed in observation for further work- up. Admission Exam Per Admitting Provider Constitutional: cooperative; no acute distress Neck: trachea midline, no thyromegaly Respiratory: normal respiratory effort Auscultation: lungs clear to auscultation bilaterally; no crackles, no rales, no rhonchi and no wheezes Cardiovascular: Rate/Rhythm: regular rate and + irregularly irregular Heart Sounds: normal S1 and normal S2 Chest (Breasts): Additional Comments: obese/protuberant abd Gastrointestinal (Abdomen): Percussion/Palpation: + abdomen tender, abdomen soft and normal to percussion; no guarding, abdomen not rigid, no hepatosplenomegaly and no abdominal mass Skin: no rashes, warm and dry Principal Diagnosis Acute Gangrenous Cholecystitis Discharge Exam Constitutional WD/WN, vitals as above cooperative Eyes + anicteric sclerae Neck trachea midline, no thyromegaly Respiratory normal respiratory effort, lungs clear to auscultation normal respiratory effort Auscultation: lungs clear to auscultation bilaterally; no crackles, no rales, no rhonchi and no wheezes Cardiovascular Rate/Rhythm: regular rate and regular rhythm Heart Sounds: normal S1; no murmur Gastrointestinal (Abdomen) Inspection/Auscultation: normal bowel sounds Percussion/Palpation: abdomen soft; abdomen nontender, no guarding and no hepatosplenomegaly surgical incisions appropriately TTP, BAILEE drain with scant serous drainage Skin no rashes, warm and dry Neurologic moves all extremities and awake; not confused Psychiatric A+Ox3, euthymic affect Genitourinary no diamond Discharge Data Allergies Allergy/AdvReac Type Severity Reaction Status Date / Time bee venom protein (honey bee) Allergy Severe Anaphylaxis Verified 03/03/22 12:05 wool AdvReac Intermediate Rash Verified 03/03/22 12:05 Consultations 03/03/22 12:49 Consult General Surgery Stat 03/03/22 14:11 ED Decision to Admit Stat 03/03/22 17:32 Consult Cardiology Routine Procedures Performed Operation Date: 03/04/22 09:55 Actual Procedures p Laparoscopic Fenestrated Cholecystectomy - Cb Rogers DO Ordered Studies Chest X-Ray 03/03/22 11:31 XR chest 1V portable, XR KUB/Abdomen 1 view HISTORY: 66 years-old Male right sided pain acute atypical chest pain with acute generalized abdominal pain COMPARISON: CT abdomen pelvis 02/18/2022, chest radiograph 06/17/2017 TECHNIQUE: AP view of the chest with KUB radiograph FINDINGS: CHEST: Cardiomegaly. Coronary arterial stent. No pneumothorax, pleural effusion, airspace consolidation or overt pulmonary edema. Bones appear grossly intact. KUB: Cholelithiasis. Nonobstructive bowel gas pattern. The patient's known left nephrolithiasis are obscured by bowel gas. Pelvic basin phleboliths redemonstrated. No pneumatosis or pneumoperitoneum. Mild to moderate fecal retention. Degenerative changes of the spine, pelvis and hips. IMPRESSION: 1. Cardiomegaly without acute process of the chest. 2. Nonobstructive bowel gas pattern. 3. Cholelithiasis. 4. The patient's known left nephrolithiasis are obscured by bowel gas. ACT 112: Negative or not required by law. The above report was generated using voice recognition software. It may contain grammatical, syntax or spelling errors. Electronically signed by: River Banuelos M.D. 03/03/2022 12:15 PM KUB X-Ray 03/03/22 11:31 XR chest 1V portable, XR KUB/Abdomen 1 view HISTORY: 66 years-old Male right sided pain acute atypical chest pain with acute generalized abdominal pain COMPARISON: CT abdomen pelvis 02/18/2022, chest radiograph 06/17/2017 TECHNIQUE: AP view of the chest with KUB radiograph FINDINGS: CHEST: Cardiomegaly. Coronary arterial stent. No pneumothorax, pleural effusion, airspace consolidation or overt pulmonary edema. Bones appear grossly intact. KUB: Cholelithiasis. Nonobstructive bowel gas pattern. The patient's known left nephrolithiasis are obscured by bowel gas. Pelvic basin phleboliths redemonstrated. No pneumatosis or pneumoperitoneum. Mild to moderate fecal retention. Degenerative changes of the spine, pelvis and hips. IMPRESSION: 1. Cardiomegaly without acute process of the chest. 2. Nonobstructive bowel gas pattern. 3. Cholelithiasis. 4. The patient's known left nephrolithiasis are obscured by bowel gas. ACT 112: Negative or not required by law. The above report was generated using voice recognition software. It may contain grammatical, syntax or spelling errors. Electronically signed by: River Banuelos M.D. 03/03/2022 12:15 PM Hepatobiliary Scan Nuclear Medicine 03/03/22 14:50 NUCLEAR HEPATOBILIARY SCAN CLINICAL HISTORY: Right upper quadrant abdominal pain. COMPARISON STUDY: Abdominal CT dated 02/18/2022. Abdominal ultrasound dated 03/03/2022. TECHNIQUE: Dynamic images of the liver and anterior abdomen were obtained every 5 minutes for a total of 45 minutes following the IV administration of 5.0 mCi of technetium 99m Mebrofenin, with an additional images acquired at 60 minutes and 120 minutes. The gallbladder was not visualized by 120 minutes. 2 mg of IV morphine was then administered with an additional image acquired 30 minutes following morphine administration. FINDINGS: The hepatobiliary scan shows prompt and homogeneous hepatic uptake. There is delayed activity within the intra and extra hepatic biliary tree. This was not visualized until 60 minutes. Bowel activity is also seen at 60 minutes. There is no visualization of the gallbladder at 2 hours following tracer administration. The gallbladder was still not visualized following morphine administration. IMPRESSION: Scintigraphic findings are consistent with acute cholecystitis. ACT 112: Negative or not required by law. Electronically signed by: Pancho Kelly M.D. 03/03/2022 8:35 PM Hospital Course (1) Acute gangrenous cholecystitis: s/p gangrenous cholecystectomy. IV abx while inpatient, Ceftriaxone/Flagyl --> Augmentin at d/c Pain control, antiemetics prn. IVF/supportive care/DVT prophylaxis Bowel regimen -- +BM 03/07 Discharged on course Augmentin after discussion with Dr Rogers F/U appt March 17 , keep BAILEE drain in place until then (2) Paroxysmal atrial fibrillation: Eliquis restarted 03/07 Continued rate control with metoprolol (3) CAD (coronary artery disease): Continued statin and metoprolol. Restarted Eliquis 03/07. (4) Hypertension: Continued metoprolol succinate 25mg PO HS (5) Sleep apnea: Per documentation. Patient has apparently refused any further work-up of this on multiple occasions with his primary care provider. Continue to monitor. (6) Type 2 diabetes mellitus: Metformin held on admission A1c 6.9 ISS while inpatient, BSGs acceptable Continue home medications at discharge (7) Hyperlipidemia: Continued atorvastatin (8) Schizophrenia, paranoid, chronic: Continued aripiprazole, hydroxyzine and trazodone. (9) Parkinsonism: 2nd to antipsychotic agents Continued Sinemet and benztropine as ordered DVT Proph-- resumed Eliquis as above Discharged home with home health. CM arranged for transportation Total Time Total Time Spent Total Time Spent (In Minutes): 60 Discharge Plan Discharge Items Patient Disposition: Home - Home Health Services Reason For Visit: CT ON GALLBLADDER, DR SENT Discharge Diagnosis: Gangrenous Gallbladder, Cholecystitis Goals: You have been hospitalized for an urgent problem which required surgery. During your stay at [facility], we have made an effort to correct the problem that brought you to the hospital while keeping you as comfortable as possible. Surgery and medications were used to bring your condition under control and your discharge instructions will include directions for any medications you should take after leaving the hospital. Please make sure to follow the advice of your surgeon regarding follow up with the surgeon and with your primary care provider. Activity: Per Instructions section Lifting: No more than 10 pounds Exercise/Sports: Wait until after follow-up appointment Non-emergency contact: Primary Care Provider and Surgeon Call non-emergency contact if: you have any medication questions, your symptoms worsen, your pain is worsening, your pain is concerning for you, you have a fever, your temperature is above 101.5, your wound has increased redness, your wound has increased drainage and your wound pain has increased Follow-up/Referrals: Emily Parra DO [Primary Care Provider] - Cb Rogers DO [Physician] - 03/17/22 10:00 am (Please call to schedule follow up in clinic within 1 week) Diet: Carb Consistent or DM2 and Heart Healthy Addtl Attending Provider Instructions: You will be discharged with a surgical drain in place. Care for your drain as you have been instructed prior to discharge from the hospital. Empty drain 2- 3x/daily and record output. Please follow up in clinic with Dr. Rogers within 1 week for check up. Addtl Garden Equipment Mechanic Provider Instructions: You have been hospitalized and had surgery to remove your gallbladder. You will continue antibiotics with Augmentin for total 10 days. You will have the BAILEE drain remain in place until seen in the office with Dr Rogers on March 05. Please follow up with your PCP in the next 7-10 days to monitor your progress. Please return the the ER with any worsening pain, fever, chest pain, shortness of breath, or for any other symptoms concerning for you. Take care! Pending Studies at Discharge: Yes Studies:: surgical pathology Stand-Alone Forms: My [facility] phorus, Smoking Cessation Medications and DC Order Prescriptions: New amoxicillin-pot clavulanate 875-125 mg tablet 1 tab PO BID 7 Days Qty: 14 RF: 0 Continued hydroxyzine HCl 50 mg tablet 50 mg PO BID Qty: 60 RF: 5 aripiprazole 20 mg tablet 30 mg PO HS RF: 0 cholecalciferol (vitamin D3) 50 mcg (2,000 unit) capsule 2,000 unit PO QAM Qty: 90 RF: 2 diclofenac sodium 1 % gel 4 g TOP BID PRN (Reason: knee pain) Qty: 100 RF: 3 sertraline 100 mg tablet 100 mg PO PM Qty: 90 RF: 1 Eliquis 5 mg tablet 5 mg PO BID Qty: 60 RF: 5 celecoxib [Celebrex] 100 mg capsule 100 mg PO BID Qty: 180 RF: 1 atorvastatin 20 mg tablet 20 mg PO HS Qty: 30 RF: 5 metformin 500 mg tablet extended release 24 hr 1,000 mg PO BID Qty: 360 RF: 1 acetaminophen [Tylenol Arthritis Pain] 650 mg tablet extended release 650 mg PO Q8H PRN (Reason: pain) Qty: 90 RF: 1 carbidopa-levodopa 25-100 mg tablet 1 tab PO TID Qty: 90 RF: 5 benztropine 0.5 mg tablet 0.5 mg PO BID RF: 0 trazodone 150 mg tablet 150 mg PO HS RF: 0 sertraline 50 mg tablet 50 mg PO QPM RF: 0 metoprolol succinate 25 mg tablet extended release 24 hr 25 mg PO QPM RF: 0 memantine 10 mg tablet 10 mg PO BID RF: 0 Caplyta 42 mg capsule 42 mg PO DAILY RF: 0 No Action famotidine [Pepcid] 20 mg tablet 20 mg PO DAILY Qty: 30 RF: 5 Discharge Orders: Discharge Order (Routine); Ordered 03/08/22 Ordered By: Edna Emerson Admission Data Admit Date/Time: 03/05/22 08:50 Attending Provider: Hayden James Admit Provider: Jonatan Giles Primary Care Provider: Emily Parra Other Providers: Cb Rogers ; Wayne Martines ; Hayden James ; Viraj [facility] Other Interventions: Discharge Summary Assessment (RN) Last Done: 03/08/22 11:44 Coding Level of Care Code D/C DAY MANAGEMENT >30 MINS Diagnoses Acute gangrenous cholecystitis K81.0 Paroxysmal atrial fibrillation I48.0 CAD (coronary artery disease) I25.10 Hypertension I10 Sleep apnea G47.30 Type 2 diabetes mellitus E11.9 Hyperlipidemia E78.5 Schizophrenia, paranoid, chronic F20.0 Parkinsonism G20
--- NOTE | 2022-03-08 11:43 | Surgery Progress Note ---
Date of Service March 08, 2022 Assessment & Plan (1) Acute gangrenous cholecystitis: Plan: POD 4 plan to return home with home health will remove drain in clinic next week Admission and Anticipated Discharge Date Admission Date: March 05, 2022 Subjective tolerating diet, less pain Physical Exam Gastrointestinal (Abdomen): Inspection/Auscultation: + abdominal surgical drain present (serous, 60 cc over 24 hrs); abdomen not distended Results & Data ([facility]) Vital Signs (Past 12 Hours) Vital Signs Temp Pulse Resp BP Pulse Ox 03/08/22 08:21 36.9 C 88 18 133/87 92 PG Care Time/CCT Total # of Minutes Spent Total Time Spent with Patient: Total time spent is greater than 50% in coordination of care (as documented) at patient's floor/unit and/or counseling patient: Coding Level of Care Code None Diagnoses Acute gangrenous cholecystitis K81.0
== END 2022-03-08 12:28 | disposition home health service (06) | DRG 418 ==
LOC: ED 11:03 → 3W 11:03 → SUATTDRO 14:50 → 3W 16:18 → SUATTDRO 03-05 08:50

== ENCOUNTER 2024-04-06 12:05 | Inpatient (IN) ==
[2024-04-06 13:03] LABS: Appearance Urine Clear (Clear); Bacteria Urine Automated None Seen (None Seen); Bilirubin Urine Negative (Negative); Blood Urine Negative (Negative); Cast Urine Automated 0-2 /lpf (0-2); Color Urine Yellow; Epithelial Cell Urine Auto 0-2 /hpf (0-2); Glucose Urine UA Negative (Negative); Ketones Urine Negative (Negative); Leukocyte Esterase Urine Negative (Negative); Nitrite Urine Negative (Negative); Protein Urine Trace (Negative); RBC Urine Automated 0-2 /hpf (0-2); Specific Gravity Urine 1.014 (1.000-1.030); Urobilinogen Urine Negative (Negative); WBC Urine Automated 0-5 /hpf (0-5); pH Urine 7.5 (4.5-7.5)
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
[2024-04-06 13:40] LABS: Amphetamines+Metham, Urine Neg (Neg); Barbiturates, Urine Neg (Neg); Benzodiazepine, Urine Neg (Neg); Cocaine, Urine Neg (Neg); Fentanyl, Urine Neg (Neg); MDMA (Ecstacy), Urine Pos (Neg); Marijuana, Urine Neg (Neg); Methadone, Urine Neg (Neg); Opiate, Urine Neg (Neg); Phencyclidine, Urine Neg (Neg)
[2024-04-06 13:46] LABS: Basophils # (auto) 0.05 K/uL (0.00-0.20); Basophils % (auto) 0.6 %; Eosinophils # (auto) 0.16 K/uL (0.00-0.50); Hematocrit (blood only) 51.1 % (42.0-52.0); Immature Granulocytes # (auto) 0.02 K/uL (0.01-0.20); Immature Granulocytes % (auto) 0.2 %; Lymphocytes # (auto) 1.81 K/uL (1.20-3.40); Lymphocytes % (auto) 22.3 %; Mean Corpuscular Hemoglobin 26.1 pg (25.0-34.0); Mean Corpuscular Hgb Conc 31.3 g/dL (32.0-36.0); Mean Corpuscular Volume 83.2 fL (80.0-100.0); Mean Platelet Volume 9.5 fL (9.4-12.4); Monocytes # (auto) 0.62 K/uL (0.11-0.59); Monocytes % (auto) 7.7 %; Neutrophils # (auto) 5.44 K/uL (1.40-6.50); Neutrophils % (auto) 67.2 %; Platelet Count 290 K/uL (130-400); RDW Coefficient of Variation 16.1 % (11.5-14.5); RDW Standard Deviation 46.5 fL (36.4-46.3); Red Blood Count 6.14 M/uL (4.70-6.10)
[2024-04-06 14:02] LABS: Acetaminophen < 3 ug/ml (10-30); Salicylate < 3.0 mg/dl (3.0-30)
[2024-04-06 14:05] LABS: Alanine Aminotransferase 3 U/L (7-52); Albumin Globulin Ratio 1.4 (0.9-2); Albumin Level 4.7 gm/dl (3.4-5.0); Alkaline Phosphatase 78 U/L (34-104); Anion Gap 10 (3-11); Aspartate Aminotransferase 25 U/L (13-39); BUN Creatinine Ratio 7.6 (10-20); Bilirubin,Total 0.9 mg/dl (0.2-1.0); Blood Urea Nitrogen 9 mg/dl (6-23); Carbon Dioxide 28 mmol/L (21-32); Chloride 100 mmol/L (98-107); Est GFR (African American) 74.1 ml/min; Est GFR (Non-African American) 63.9 ml/min; Globulin 3.4 gm/dl (2.5-4.0); Glucose 128 mg/dl (70-99(Fasting)); Potassium 4.3 mmol/L (3.5-5.1); Sodium 138 mmol/L (136-145); Total Protein 8.1 gm/dl (6.0-8.3)
[2024-04-06 14:19] LABS: Thyroid Stimulating Hormone 1.628 uIu/ml (0.300-4.500)
--- NOTE | 2024-04-06 21:31 | Emergency Department Note ---
ED Visit Note Received this patient in signout from Dr. Lazcano. Patient on a 302 due to suicidal thoughts with his underlying schizophrenia. Bed search has been in progress. See her note for full details. Patient was accepted to [facility] for further inpatient care. .
[2024-04-06] MEDS ORDERED: BISMUTH SUBSALICYLATE LIQD 236 ML PO PRN (23:51)
[2024-04-06] MEDS ORDERED: SODIUM CHLORIDE 0.65% NA SOLN 45 ML (OCEAN) PRN (23:51)
[2024-04-06] MEDS ORDERED: ACETAMINOPHEN 325 MG TAB PO PRN (23:51)
[2024-04-06] MEDS ORDERED: hydrOXYzine HCl 25 MG TAB PO PRN ×2 (23:51)
[2024-04-06] MEDS ORDERED: ALUMINUM/MAGNESIUM SUSP 30 ML UDC PO PRN (23:51)
[2024-04-06] MEDS ORDERED: MAGNESIUM HYDROXIDE SUSP 30 ML UDC PO PRN (23:51)
[2024-04-07] MEDS ORDERED: LIDOCAINE 5% 1 PATCH TD PRN (09:45)
[2024-04-07] MEDS: metFORMIN HCL ER 500 MG TABCR PO SCH (10:48)
[2024-04-07] MEDS: METOPROLOL SUCC 50MG EXT REL TAB PO SCH (10:48)
[2024-04-07] MEDS: MEMANTINE HCL 10 MG TAB PO SCH (10:49)
[2024-04-07] MEDS: APIXABAN 5 MG TABLET PO SCH (10:49)
[2024-04-07] MEDS ORDERED: DICLOFENAC SOD 1% GEL 100 GM TUBE EXT PRN (12:01)
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
[2024-04-07] MEDS: FLUoxetine HCL 20 MG CAP PO SCH (12:35)
[2024-04-07] MEDS: CHOLECALCIFEROL 25 MCG (1000 UNITS) TAB PO SCH (12:35)
[2024-04-07] MEDS: LIDOCAINE 5% 1 PATCH TD SCH (13:19)
[2024-04-07] MEDS: CELECOXIB 100 MG CAP PO SCH (17:28)
[2024-04-07] MEDS: buPROPion SR 100 MG TABCR PO SCH (21:14)
[2024-04-07] MEDS: ARIPiprazole 15 MG TAB PO SCH (21:14)
[2024-04-07] MEDS: ATORVASTATIN 20 MG TAB PO SCH (21:15)
[2024-04-07] MEDS: traZODone HCL 50 MG TAB PO SCH (21:16)
[2024-04-07] MEDS: GABAPENTIN 300 MG CAP PO SCH (21:16)
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
--- NOTE | 2024-04-09 16:14 | Psychiatric Progress Note ---
Date of Service April 09, 2024 Impression / Recommendations Impression CLIFFORD BROWNING is a 68-year-old M who currently lives in assisted living, has a history of schizophrenia, intellectual disability, and was admitted on 04/06/24 23:49 on a 302 involuntary commitment for hallucinations. Patient presents an improvement in auditory hallucinations. Per patient no change in motor symptoms including tremor. Complains of tardive dyskinesia symptoms mainly involving his tongue and perioral areas. Patient would likely benefit from tardive dyskinesia treatment however medications not on formulary and will recommend to trial on an outpatient basis. Awaiting records from [place] [facility] for collateral. Planning towards discharge. Overall, I spent a total of 60 minutes with this case including review of chart records, nursing report, review of lab work, direct evaluation of the patient at bedside, counseling the patient, orders, clinical assessment, and documentation in the electronic health record. (1) Schizophrenia: (2) Hallucinations: (3) Dementia: (4) Extrapyramidal and movement disorder: (5) Intellectual disability: (6) Tremor: (7) Parkinsonism: Plan 04/09/2024: Continue medications and treatment plan. 04/08/2024: Discontinue lidocaine patch. Start ThermaCare patch. 04/07/2024: Hold home Caplyta and sertraline; continuing Abilify 30 mg daily and fluoxetine 40 mg daily. Will trial discontinuation of carbidopa-levodopa to evaluate extent of parkinsonism and EPS symptoms. Inventory Assets Strengths: connected to care, assisted living Needs: insight into conditions, medication adjustment Suicide Risk Level Suicide Risk Level: Moderate (q15 min suicide checks) Risk Factors Assessment Male: Yes : Yes Do You Have Access To A Gun?: No Health Problems: Yes Mental Health Diagnoses: Yes Substance Use Disorders: No Previous Attempt: No Family History of Suicide: No Previous Psychiatric Hospitalization: Yes Hopelessness: No Protective Factors Assessment Sikh Beliefs: No : No Responsible for Young Children: No Employed: No Stable Relationships: No Supportive Family: No Good Rapport with Provider: Yes Absence of Any Risk Factors Above: No Interval History Identifying Information CLIFFORD BROWNING is a 68-year-old M who currently lives in assisted living, has a history of schizophrenia, intellectual disability, and was admitted on 04/06/24 23:49 on a 302 involuntary commitment for hallucinations. Chief Complaint "doing ok". Review of Systems Sleep Information Total Hours of Sleep: 7.75 Sleep Comments: Admitted overnight Meal Information Percent Meal Consumed - Breakfast: 100 Percent Meal Consumed - Lunch: 100 Percent Meal Consumed - Dinner: 100 Nutrition Comment: pt. allowed to rest Subjective Subjective Patient was seen & assessed and interval progress reviewed with treatment team nursing and social work Patient denies voices today and last night. Denies feeling distressed. Denies having past tardive dyskinesia treatment such as Ingrezza or Austedo. Feels "okay". Slept well. Says heating pad is working. He denies suicidal ideation. He denies worsening of movements. When encouraged to attend groups he appears resistant and request to stay in his room. Physical Exam Mental Examination Appearance: Disheveled Eye Contact: Maintains Eye Contact Motor Behavior: Slowed (has perioral EPS symptoms) Speech: Soft and Delayed Mood: Euthymic and Calm Affect: Congruent Thought Process: Intact and [place] Thought Content: Intact Hallucinations: Auditory Insight: Poor (to limited) Judgement: Poor Vital Signs (Past 24 Hours) Last Vital Signs Temp 36.5 C 04/09/24 06:22 Pulse 86 04/09/24 06:22 Resp 16 04/09/24 06:22 BP 121/81 04/09/24 06:22 Pulse Ox 99 04/07/24 03:10 O2 Del Method Room Air 04/07/24 03:10 Results & Data ([facility]) Current Inpatient Medications Current Inpatient Medications: Current Inpatient Medications Acetaminophen (Acetaminophen 325 Mg Tab) 650 mg PO Q4H PRN PRN Reason: Headache or Minor Fever Stop: 05/06/24 23:50 Al Hydrox/Mg Hydrox/Simethicone (Aluminum/Magnesium Susp 30 Ml Udc) 30 ml PO Q4H PRN PRN Reason: GI Upset Stop: 05/06/24 23:50 Apixaban (Apixaban 5 Mg Tablet) 5 mg PO BID MARY Stop: 05/07/24 09:44 Last Admin: 04/09/24 08:44 Dose: 5 mg Aripiprazole (Aripiprazole 15 Mg Tab) 30 mg PO QPM MARY Stop: 05/07/24 20:59 Last Admin: 04/08/24 21:19 Dose: 30 mg Atorvastatin Calcium (Atorvastatin 20 Mg Tab) 20 mg PO HS MARY Stop: 05/07/24 21:59 Last Admin: 04/08/24 21:19 Dose: 20 mg Bismuth Subsalicylate (Bismuth Subsalicylate Liqd 236 Ml) 15 ml PO PRN PRN PRN Reason: Loose Stool Stop: 05/06/24 23:50 Bupropion HCl (Bupropion Sr 100 Mg Tabcr) 100 mg PO BID MARY Stop: 05/07/24 20:59 Last Admin: 04/09/24 08:45 Dose: 100 mg Celecoxib (Celecoxib 100 Mg Cap) 100 mg PO DAILY@1800 [facility] Stop: 05/07/24 17:59 Last Admin: 04/08/24 17:36 Dose: 100 mg Diclofenac Sodium (Diclofenac Sod 1% Gel 100 Gm Tube) 4 gm EXT BID PRN; Protocol PRN Reason: knee pain Stop: 05/07/24 12:00 Fluoxetine HCl (Fluoxetine Hcl 20 Mg Cap) 40 mg PO DAILY MARY Stop: 05/07/24 12:14 Last Admin: 04/09/24 08:46 Dose: 40 mg Gabapentin (Gabapentin 300 Mg Cap) 300 mg PO HS MARY Stop: 05/07/24 21:59 Last Admin: 04/08/24 21:20 Dose: 300 mg Hydroxyzine HCl (Hydroxyzine Hcl 25 Mg Tab) 50 mg PO HSZ PRN PRN Reason: Insomnia Stop: 05/06/24 23:50 Hydroxyzine HCl (Hydroxyzine Hcl 25 Mg Tab) 25 mg PO Q4H PRN PRN Reason: Anxiety Stop: 05/06/24 23:50 Magnesium Hydroxide (Magnesium Hydroxide Susp 30 Ml Udc) 30 ml PO DAILY PRN PRN Reason: Constipation Stop: 05/06/24 23:50 Memantine (Memantine Hcl 10 Mg Tab) 10 mg PO BID MARY Stop: 05/07/24 09:44 Last Admin: 04/09/24 08:46 Dose: 10 mg Metformin HCl (Metformin Hcl Er 500 Mg Tabcr) 1,000 mg PO BIDM MARY Stop: 05/07/24 09:44 Last Admin: 04/09/24 08:46 Dose: 1,000 mg Metoprolol Succinate (Metoprolol Succ 50mg Ext Rel Tab) 50 mg PO DAILY MARY Stop: 05/07/24 09:44 Last Admin: 04/09/24 08:47 Dose: 50 mg Sodium Chloride (Sodium Chloride 0.65% Na Soln 45 Ml ([place])) 1 - 2 sprays NA PRN PRN PRN Reason: Nasal Dryness/Congestion Stop: 05/06/24 23:50 Trazodone HCl (Trazodone Hcl 50 Mg Tab) 150 mg PO HS MARY Stop: 05/07/24 21:59 Last Admin: 04/08/24 21:21 Dose: 150 mg Vitamin D (Cholecalciferol 25 Mcg (1000 Units) Tab) 50 mcg PO QAM MARY Stop: 05/07/24 12:29 Last Admin: 04/09/24 08:46 Dose: 50 mcg Mental Health & Subst Abuse Tx Psychiatrist Name of Psychiatrist: VÍCTOR Garza Psychiatrist's Date Of Appointment With Psychiatric Provider: 04/18/24 Time of Appointment with Psychiatrist: 11:30 Post Discharge Appointments Primary Care Physician Name Of Family Doctor/PCP: Dr. Parra [facility] [place] Primary Care Date of Future Appointment with PCP: 05/03/24 Time of Appointment with PCP: 9:20AM Provider Appointment Comment: *message sent to Dr. Parra requesting earlier appt. Home Health Services Home Health Services:: Nursing Phone Number of Home Services Agency: [facility]
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
[2024-04-12 16:14] LABS: MDA negative; MDEA negative; MDMA (Ecstasy) Urine, Confirm negative
== END 2024-04-10 13:10 | disposition home or self-care (01) | DRG 885 ==
LOC: ED 12:05 → 3S 23:49